=== PATIENT | female | born 1975 | race Caucasian/White ===

== ENCOUNTER 2017-05-26 12:33 | Emergency (ER) | payer OTHER ==
[2017-05-26 12:45] VITALS: BMI 31.9
[2017-05-26 12:47] VITALS: BP 111/84; PULSE 78; TEMP 97.9; O2SAT 95
--- NOTE | 2017-05-26 13:04 | C.PDOC ---
History Of Present Illness SORE THROAT X 4 DAYS. +EYE DC, +DIARRHEA. NO FEVER. TAKING "AMPICILLIN" W NO RELIEF. EXAM NONTOXIC HEENT +WATERY DC B/L EYES, NO REDNESS. NO EYE SWELLING. +LARYNGITIS. NO EXUDATE , SWELL ABD NEG REMAINDER NEG Time Seen by Provider: 05/26/17 12:52 Chief Complaint (Nursing): ENT Problem History Per: Patient History/Exam Limitations: no limitations Onset/Duration Of Symptoms: Days (4) Current Symptoms Are (Timing): Still Present Recent travel outside of the [place]: No Past Medical History Reviewed: Historical Data, Nursing Documentation, Vital Signs Vital Signs: Last Vital Signs Temp 97.9 F 05/26/17 12:46 Pulse 78 05/26/17 12:46 Resp 18 05/26/17 12:46 BP 111/84 05/26/17 12:46 Pulse Ox 95 05/26/17 13:04 - [facility] Procedures LAPAROSCOPIC CHOLECYSTECTOMY (01/17/13) OTHER LAPAROSCOPIC UMBILICAL HERNIORRHAPHY (01/17/13) Family History: States: No Known Family Hx Review Of Systems Except As Marked, All Systems Reviewed And Found Negative. Constitutional: Negative for: Fever, Chills Eyes: Positive for: Other ((+) eye discharge) ENT: Positive for: Throat Pain (sore throat) Gastrointestinal: Positive for: Diarrhea. Negative for: Vomiting Musculoskeletal: Negative for: Neck Pain Physical Exam - Physical Exam Appears: Non-toxic, No Acute Distress Skin: Warm, Dry Head: Atraumatic, Normacephalic Eye(s): bilateral: PERRL, EOMI, Other (bilateral watery discharge, no redness, no swelling) Ear(s): Bilateral: Normal Throat: No Exudate, Other ((+) laryngitis (-) swelling) Respiratory: Normal Breath Sounds Gastrointestinal/Abdominal: Normal Exam, Soft, No Tenderness, No Guarding, No Rebound Extremity: Normal ROM, No Swelling Neurological/Psych: Oriented x3, Normal Speech ED Course And Treatment O2 Sat by Pulse Oximetry: 95 (RA) Pulse Ox Interpretation: Normal Disposition Counseled Patient/Family Regarding: Diagnosis, Need For Followup, Rx Given - Disposition Referrals: YOUR,PMD [Other] Disposition: HOME/ ROUTINE Disposition Time: 13:01 Condition: GOOD Prescriptions: Atropine/Diphenoxylate [Lonox 0.025 MG-2.5 MG] 1 tab PO BID PRN #12 tab PRN Reason: Diarrhea Dexamethasone [Decadron] 12 mg PO ONCE #3 tab Ibuprofen [Motrin] 600 mg PO Q6 #30 tab Polymyxin/Trimethoprim Sulfate [Polytrim Ophth Soln] 1 drop OD Q3H #1 bottle Instructions: Laryngitis (ED), Acute Diarrhea (ED), Conjunctivitis (ED) Forms: [employer] (Martiniquais) Print Language: SAUDI ARABIAN - Clinical Impression Clinical Impression: Laryngitis, Conjunctivitis, Diarrhea - Scribe Statement The provider has reviewed the documentation as recorded by the Talat Garcia Provider Attestation: All medical record entries made by the Talat were at my direction and personally dictated by me. I have reviewed the chart and agree that the record accurately reflects my personal performance of the history, physical exam, medical decision making, and the department course for this patient. I have also personally directed, reviewed, and agree with the discharge instructions and disposition.
[2017-05-26 13:24] VITALS: RESP 20
== END 2017-05-26 13:24 | disposition home or self-care (01) ==
LOC: C.ER 12:33
DX: H10.9 Unspecified conjunctivitis (principal); J04.0 Acute laryngitis; R19.7 Diarrhea, unspecified

== ENCOUNTER 2018-09-07 12:27 | Inpatient (IN) | payer OTHER ==
[2018-09-07 12:37] VITALS: BMI 30.6
--- NOTE | 2018-09-07 13:33 | C.PDOC ---
History Of Present Illness Patient is a 43 year old female with pmhx of asthma, RA, SLE, sarcoidosis and anemia who presents to the ED today at the request of her PMD for evaluation of worsening SOB, cough and concerning recent findings on CXR. Patient reports cough and worsening SOB over past month for which she underwent nasal endoscopy, CXR and recently EGD today. Patient reports PMD was concerned regarding CXR findings: marked interval worsening. Enlarged patchy densities B/L LL jimenez, new patchy densities in B/L upper/mid lung jimenez. Patient reports asthma is usually well controlled with Ventolin pump and nebulizer treatments at home, however not for past month. Patient denies recent illness, fevers, chest pain, nausea, diarrhea, home O2 use. <Goldie Danielle - Last Filed: 09/07/18 16:10> <Beena Martinez - Last Filed: 09/07/18 15:25> History Per: Patient History/Exam Limitations: no limitations Current Symptoms Are (Timing): Better Initiating Event: denies: Upper Respiratory Illness Current Respiratory Medications: See Home Med List Associated Symptoms: Productive Cough (white sputum). denies: Fever, Chills, Chest Pain <Goldie Danielle - Last Filed: 09/07/18 16:10> Time Seen by Provider: 09/07/18 12:41 Chief Complaint (Nursing): Shortness Of Breath Past Medical History Vital Signs: Last Vital Signs Temp 97.7 F 09/07/18 12:48 Pulse 78 09/07/18 14:47 Resp 28 H 09/07/18 14:47 BP 111/65 09/07/18 14:47 Pulse Ox 89 L 09/07/18 15:15 - [facility] Procedures LAPAROSCOPIC CHOLECYSTECTOMY (01/17/13) OTHER LAPAROSCOPIC UMBILICAL HERNIORRHAPHY (01/17/13) <Beena Martinez - Last Filed: 09/07/18 15:25> Reviewed: Historical Data, Nursing Documentation, Vital Signs Vital Signs: Last Vital Signs Temp 97.7 F 09/07/18 12:48 Pulse 92 H 09/07/18 12:48 Resp 28 H 09/07/18 12:48 BP 108/67 09/07/18 12:48 Pulse Ox 89 L 09/07/18 12:48 - Medical History PMH: Anemia, Asthma, Rheumatoid Arthritis Surgical History: Cholecystectomy - [facility] Procedures LAPAROSCOPIC CHOLECYSTECTOMY (01/17/13) OTHER LAPAROSCOPIC UMBILICAL HERNIORRHAPHY (01/17/13) Family History: States: Unknown Family Hx - Social History Hx Tobacco Use: No Hx Alcohol Use: No Hx Substance Use: No - Immunization History Hx Tetanus Toxoid Vaccination: No Hx Influenza Vaccination: No Hx Pneumococcal Vaccination: No <Goldie Danielle - Last Filed: 09/07/18 16:10> Review Of Systems Constitutional: Positive for: Weight loss (10 lb). Negative for: Fever, Chills ENT: Negative for: Nose Congestion Cardiovascular: Negative for: Chest Pain Respiratory: Positive for: Cough, Shortness of Breath, Sputum (white) Gastrointestinal: Positive for: Vomiting (post-tussive). Negative for: Abdominal Pain <Goldie Danielle - Last Filed: 09/07/18 16:10> Physical Exam - Physical Exam Appears: Non-toxic, No Acute Distress Skin: Normal Color, Warm, Dry, No Cyanotic Head: Atraumatic, Normacephalic Eye(s): bilateral: Normal Inspection, EOMI Oral Mucosa: Moist Neck: Normal Cardiovascular: Rhythm Regular, No Murmur Respiratory: No Accessory Muscle Use, Rales, No Rhonchi, No Wheezing Gastrointestinal/Abdominal: Normal Exam, Bowel Sounds, Soft, No Tenderness Extremity: No Pedal Edema, No Calf Tenderness Extremity: Bilateral: Normal Color And Temperature Neurological/Psych: Oriented x3 <Goldie Danielle - Last Filed: 09/07/18 16:10> ED Course And Treatment - Laboratory Results Result Diagrams: 09/07/18 14:09 09/07/18 14:09 Lab Results: Puncture Site Rradial 09/07/18 14:00 pCO2 29 mm/Hg (35-45) L 09/07/18 14:00 pO2 55 mm/Hg (80-100) L 09/07/18 14:00 HCO3 24.6 mmol/L (21-28) 09/07/18 14:00 ABG pH 7.49 (7.35-7.45) H 09/07/18 14:00 ABG Total CO2 23.0 mmol/L (22-28) 09/07/18 14:00 ABG O2 Saturation 93.3 % (95-98) L 09/07/18 14:00 ABG Base Excess -0.2 mmol/L (-2.0-3.0) 09/07/18 14:00 Nacho Test Pos 09/07/18 14:00 ABG Potassium 3.0 mmol/L (3.6-5.2) L 09/07/18 14:00 A-a O2 Difference 58.0 mm/Hg 09/07/18 14:00 Respiratory Index 1.1 09/07/18 14:00 Sodium 140.0 mmol/l (132-148) 09/07/18 14:00 Chloride 110.0 mmol/L (98-107) H 09/07/18 14:00 Glucose 85 mg/dl (65-105) 09/07/18 14:00 Lactate 0.7 mmol/L (0.7-2.1) 09/07/18 14:00 FiO2 21.0 % 09/07/18 14:00 Total Bilirubin 0.2 mg/dL (0.2-1.3) 09/07/18 14:09 AST 78 U/L (14-36) H 09/07/18 14:09 ALT 14 U/L (9-52) 09/07/18 14:09 Alkaline Phosphatase 65 U/L (38-126) 09/07/18 14:09 Total Protein 8.2 g/dL (6.3-8.3) 09/07/18 14:09 Albumin 3.5 g/dL (3.5-5.0) D 09/07/18 14:09 Globulin 4.8 gm/dL (2.2-3.9) H 09/07/18 14:09 Albumin/Globulin Ratio 0.7 (1.0-2.1) L 09/07/18 14:09 Urine Color Yellow (YELLOW) 09/07/18 14:43 Urine Clarity Hazy (Clear) 09/07/18 14:43 Urine pH 6.0 (5.0-8.0) 09/07/18 14:43 Ur Specific [place] 1.016 (1.003-1.030) 09/07/18 14:43 Urine Protein Negative mg/dL (NEGATIVE) 09/07/18 14:43 Urine Glucose (UA) Normal mg/dL (Normal) 09/07/18 14:43 Urine Ketones Negative mg/dL (NEGATIVE) 09/07/18 14:43 Urine Blood 2+ (NEGATIVE) H 09/07/18 14:43 Urine Nitrate Negative (NEGATIVE) 09/07/18 14:43 Urine Bilirubin Negative (NEGATIVE) 09/07/18 14:43 Urine Urobilinogen 2.0 mg/dL (0.2-1.0) H 09/07/18 14:43 Ur Leukocyte Esterase Neg Isai/uL (Negative) 09/07/18 14:43 Urine WBC (Auto) 2 /hpf (0-5) 09/07/18 14:43 Urine RBC (Auto) 21 /hpf (0-3) H 09/07/18 14:43 Ur Squamous Epith Cells 1 /hpf (0-5) 09/07/18 14:43 Urine Bacteria Rare (<OCC) 09/07/18 14:43 <Beena Martinez - Last Filed: 09/07/18 15:25> - Laboratory Results Result Diagrams: 09/07/18 14:09 09/07/18 14:09 ECG: Viewed By Me ECG Rhythm: Sinus Rhythm, Nonspecific Changes O2 Sat by Pulse Oximetry: 89 Pulse Ox Interpretation: Abnormal Interpretation Of Abnormal: Unable to maintain spO2 >90% on room air - Radiology CXR: Viewed By Me, Read By Radiologist (Patchy B/L nodular infiltrates most prominent in the right upper and B/L lower lobes suspicious for PNA) <Goldie Danielle - Last Filed: 09/07/18 16:10> Supervising Attending Note - Supervising Attending Note Comment: RESIDENT - Attestation: I have personally seen and examined this patient.: Yes I have fully participated in the care of the patient.: Yes I have reviewed all pertinent clinical information, including history, physical exam and plan: Yes - Notes: Notes:: WORSENING SOB X SEV MONTHS. S/P OUTPT CXR, REPORT NOTING WORSENING FINDINGS COMPARED TO PRIOR. NO FEVER, WT LOSS. NO IMPROVE W MDI, NEB. NO HOME O2 USE. EXAM ABOVE. PER RN, PT MUCH IMPROVED W O2 NC. PS FEELS BETTER W O2 <Beena Martinez - Last Filed: 09/07/18 15:25> Medical Decision Making Medical Decision Makin43 year old female admitted for evaluation and treatment of worsening SOB/cough CXR CT Chest w/ IV contrast CBC/CMP ABG EKG O2 UA <Goldie Danielle - Last Filed: 09/07/18 16:10> Disposition <Beena Martinez - Last Filed: 09/07/18 15:25> Discussed With Dr.: Elvin Hidalgo Comment: Spoke with patient's day worker, Dr. Morrell who requests admission to Dr. Hidalgo Doctor Will See Patient In The: Hospital Counseled Patient/Family Regarding: Studies Performed, Diagnosis - Disposition Disposition Time: 16:04 - POA Present On Arrival: None <Goldie Danielle - Last Filed: 09/07/18 16:10> - Disposition Disposition: HOSPITALIZED Condition: FAIR Forms: [facility] (Greenlandic) - Clinical Impression Clinical Impression: Respiratory distress
[2018-09-07 14:07] LABS: ABG ALLEN TEST POS; ARTERIAL BLOOD GAS HCO3 24.6 mmol/L (21-28); ARTERIAL BLOOD GAS O2 SAT 93.3 % (95-98); ARTERIAL BLOOD GAS PCO2 29 mm/Hg (35-45); ARTERIAL BLOOD GAS PH 7.49 (7.35-7.45); ARTERIAL BLOOD GAS PO2 55 mm/Hg (80-100)
[2018-09-07 14:13] LABS: BASO % 0.5 % (0.0-2.0); HEMOGLOBIN 10.7 g/dL (11.0-16.0); LYMPH # 1.3 K/uL (1.0-4.3); MEAN CORPUSCULAR HEMOGLOBIN 28.3 pg (27.0-31.0); MEAN CORPUSCULAR HGB CONC 33.6 g/dL (33.0-37.0); MEAN PLATELET VOLUME 6.8 fL (7.2-11.7); MONO # 0.2 K/uL (0.0-0.8); MONO % 3.2 % (0.0-10.0); NEUT # 4.5 K/uL (1.8-7.0); NEUT % 74.3 % (50.0-75.0); RBC 3.8 Mil/uL (3.80-5.20); RED CELL DISTRIBUTION WIDTH 15.3 % (11.5-14.5); WHITE BLOOD COUNT 6.1 K/uL (4.8-10.8)
[2018-09-07 14:14] LABS: MEAN CELL VOLUME 84.1 fL (81.0-99.0)
[2018-09-07 14:24] LABS: ALB/GLOB RATIO 0.7 (1.0-2.1); ALBUMIN 3.5 g/dL (3.5-5.0); ALT/SGPT 14 U/L (9-52); AST/SGOT 78 U/L (14-36); BLOOD UREA NITROGEN 13 mg/dL (7-17); GFR NON-AFRICAN AMERICAN > 60
[2018-09-07] MEDS ORDERED: Iodixanol 320 MG/ML 100 ML BOTTLE IV ONE (14:47)
[2018-09-07 14:49] LABS: SQUAMOUS EPITHIAL 1 /hpf (0-5); URINE BACTERIA RARE (<OCC); URINE BILIRUBIN NEGATIVE (NEGATIVE); URINE BLOOD 2+ (NEGATIVE); URINE CLARITY Hazy (Clear); URINE COLOR Yellow (YELLOW); URINE GLUCOSE (UA) NORMAL (Normal); URINE LEUKOCYTE ESTERASE NEG Leu/uL (Negative); URINE PROTEIN NEGATIVE (NEGATIVE)
--- NOTE | 2018-09-07 14:59 | RAD ---
HISTORY: SOB COMPARISON: None available TECHNIQUE: Chest PA and lateral, 2 views FINDINGS: LUNGS: Patchy bilateral nodular infiltrates most prominent in the right upper and bilateral lower lobes suspicious for pneumonia. No significant pleural effusion or pneumothorax. CARDIOVASCULAR: Heart size appears within normal limits. OSSEOUS STRUCTURES: No acute osseous abnormality identified. VISUALIZED UPPER ABDOMEN: Unremarkable. OTHER FINDINGS: None. IMPRESSION: Patchy bilateral nodular infiltrates most prominent in the right upper and bilateral lower lobes suspicious for pneumonia. Correlate clinically and follow-up upon completion of treatment of acute symptoms to assess for complete resolution.
--- NOTE | 2018-09-07 16:20 | CT ---
Date of service: 09/07/2018 PROCEDURE: CT Chest with contrast HISTORY: worsening SOB COMPARISON: None available. TECHNIQUE: Contiguous axial images were obtained through the chest with intravenous contrast enhancement. Sagittal and coronal reconstructions were performed. IV contrast: 100 mL Visipaque 320 Radiation dose: Total exam DLP = 410.67 mGy-cm. This CT exam was performed using one or more of the following dose reduction techniques: Automated exposure control, adjustment of the mA and/or kV according to patient size, and/or use of iterative reconstruction technique. FINDINGS: LUNGS: Multifocal bilateral infiltrates are noted with an atypical appearance of concentric rings of opacity in some regions. There is ground-glass opacity in both lower lobes. There is no discrete pulmonary mass. There is no agnieszka consolidation. Findings may reflect an atypical pneumonia or opportunistic infection. One possible etiology to consider would be paracoccidiomycosis, but these findings are in no way pathognomonic. MEDIASTINUM: There is mediastinal and bilateral hilar lymphadenopathy. Nonspecific. Consider neoplastic or inflammatory/infectious etiology. Normal sized heart. Main pulmonary artery unremarkable. No vascular congestion. No evidence of thoracic aortic aneurysm. No atherosclerotic calcification of the thoracic aorta. Small hiatal hernia noted. PLEURA: No pleural fluid. No pneumothorax. BONES: No fracture. No destructive lesion. UPPER ABDOMEN: Grossly unremarkable. OTHER FINDINGS: None. IMPRESSION: Probable atypical pneumonia with both ground-glass opacity as well as concentric rings of opacity. Possible opportunistic infection. Consider paracoccidiomycosis.
[2018-09-07] MEDS ORDERED: Azithromycin 500 MG in Sodium Chloride 0.9% 250 ML IV STA (17:06)
[2018-09-07] MEDS ORDERED: cefTRIAXone IV 1 gm in Dextros 50 ML IV STA (17:06)
[2018-09-07] MEDS ORDERED: Vancomycin 1 GM 1 GM/250 ML BAG IV STA (17:06)
[2018-09-07 17:34] LABS: VENOUS BLOOD GAS BASE EXCESS -5.7 mmol/L (0.0-2.0); VENOUS BLOOD GAS PCO2 31 mmHg (40-60); VENOUS BLOOD GAS PO2 47 mm/Hg (30-55); VENOUS BLOOD PH 7.38 (7.32-7.43)
[2018-09-07] MEDS ORDERED: Azithromycin 500 MG in Sodium Chloride 0.9% 250 ML IV ONE (19:00)
[2018-09-07] MEDS ORDERED: Vancomycin 1 gm/NS 200 ml 1 GM/200 ML BAG IVPB ONE (19:00)
[2018-09-07] MEDS: MethylPREDNISolone 40 mg Vial IVP SCH (21:05)
[2018-09-07] MEDS: guaiFENesin 600 mg ER Tab PO SCH (21:05)
[2018-09-08] MEDS: Albuterol-Ipratrop 3 mg / 0.5 (3 ml) UD INH SCH (01:05)
[2018-09-08] MEDS: MethylPREDNISolone 40 mg Vial IVP SCH ×2 (08:27→20:48)
--- NOTE | 2018-09-08 09:48 | CP.PCM.CON ---
<Loida Oconnor - Last Filed: 09/08/18 10:29> History of Present Illness - History of Present Illness History of Present Illness: Pulm Consult note for Dr. Morrell 43 year old female with PMHx of asthma, RA, SLE, sarcoidosis, and anemia who presented to the emergency room yesterday morning with worsening shortness of breath and cough for 1 month. Patient states her baseline is mildly short of breath with slight cough due to asthma and sarcoidosis but 1 month ago her symptoms had gotten much worse. Patient states she felt like she needed oxygen. She went to Dr. Morrell last week who told her to get a CXR. The CXR report was sent to Dr. Morrell and her primary care doctor, Dr. Byrnes. Dr. Byrnes told the patient to come to the ER after viewing the report. Last November Dr. Kiya Smith completed a lung biopsy for the patient which showed sarcoidosis. Since then she has been on steroid therapy with a baseline treatment coupled with increased dosage during exacerbations. This has been managed by Dr. Morrell for the past 6 months. In addition to the steroid therapies, patient follows Dr. Gómez for SLE which she takes hydroxychloroquine 250 BID and RA which she takes humira 1 injection every 15 days. Patient's asthma is controlled at home with Ventolin and nebulizers which she takes twice a day. However, over the past month these therapies have not helped with her SOB and cough Patient is from the [place]. She states she has been in [place] since 2010 and has not traveled anywhere particularly to [place] or [place]. Patient denies aspiration or difficulty swallowing, denies hemoptysis, and denies any recent hospitalizations or health care facility exposures. Patient denies any exposure to environmental respiratory irritants, any pets at home, or carpets. Patient recently had an EKG as well as Upper GI endoscopy done to rule out cardiovascular causes SOB as well as to examine symptoms of GERD. Patient recently began taking iron for microcytic anemia. She states she is currently on her period which began one day ago. She states her flow is normal. PMHx: asthma, sarcoidosis, SLE, RA, anemia Surgical history: cholecystectomy, section x2 Allergies: denies Social: denies cigarette use, alcohol use, recreational drug use, patient states she has not worked for the past year Family history: diabetes Review of Systems - Constitutional Constitutional: Fatigue, Fever. absent: Weight Loss - EENT Nose/Mouth/Throat: absent: Nasal Congestion, Dysphagia, Neck Pain - Cardiovascular Cardiovascular: absent: Chest Pain, Edema, Leg Edema, Palpitations - Respiratory Respiratory: Cough, Dyspnea. absent: Hemoptysis, Wheezing - Gastrointestinal Gastrointestinal: Heartburn, Nausea. absent: Abdominal Pain, Coffee Ground Emesis, Diarrhea, Hematemesis, Hematochezia - Reproductive: Female Reproductive:Female: Currently Menstual, Normal Menses - Musculoskeletal Musculoskeletal: absent: Arthralgias, Myalgias Past Patient History - Past Social History Smoking Status: Never Smoked Alcohol: None Drugs: Denies - PULMONARY Hx Asthma: Yes - ENDOCRINE/METABOLIC Hx Endocrine Disorders: Yes Hx Systemic Lupus Erythematosus: Yes - HEMATOLOGICAL/ONCOLOGICAL Hx Anemia: Yes - MUSCULOSKELETAL/RHEUMATOLOGICAL Hx Rheumatoid Arthritis: Yes - PSYCHIATRIC Hx Substance Use: No - SURGICAL HISTORY Hx Cholecystectomy: Yes - ANESTHESIA Hx Anesthesia: Yes Hx Anesthesia Reactions: No Meds Allergies/Adverse Reactions: Allergies Allergy/AdvReac Type Severity Reaction Status Date / Time No Known Allergies Allergy Verified 05/26/17 12:44 - Medications Medications: Current Medications Albuterol/Ipratropium (Duoneb 3 Mg/0.5 Mg (3 Ml) Ud) 3 ml INH RQ6 [facility] Last Admin: 09/08/18 01:05 Dose: 3 ml Baclofen (Lioresal) 20 mg PO BID [facility] Last Admin: 09/07/18 21:24 Dose: 20 mg Folic Acid (Folic Acid) 1 mg PO DAILY [facility] Guaifenesin (Mucinex La) 600 mg PO BID [facility] Last Admin: 09/07/18 21:05 Dose: 600 mg Heparin Sodium (Porcine) (Heparin) 5,000 units SC Q12 [facility] Azithromycin 500 mg/ Sodium (Chloride) 250 mls @ 250 mls/hr IVPB DAILY [facility]; Protocol Ceftriaxone Sodium 1 gm/ (Sodium Chloride) 100 mls @ 100 mls/hr IVPB DAILY [facility]; Protocol Vancomycin HCl 1 gm/ Sodium (Chloride) 250 mls @ 166.7 mls/hr IVPB Q12H [facility]; Protocol Last Admin: 09/08/18 08:25 Dose: 166.7 mls/hr Itraconazole (Sporanox) 100 mg PO DAILY@1600 [facility]; Protocol Methylprednisolone (Solu-Medrol) 60 mg IVP Q12H [facility] Last Admin: 09/08/18 08:27 Dose: 60 mg Pneumococcal Polyvalent Vaccine (Pneumovax 23 Vaccine) 0.5 ml IM .ONCE ONE Stop: 09/09/18 10:01 Physical Exam - Constitutional Appears: Well, Non-toxic - Head Exam Head Exam: ATRAUMATIC, NORMOCEPHALIC - Eye Exam Eye Exam: EOMI, Normal appearance - ENT Exam ENT Exam: Mucous Membranes Moist, Normal Exam - Neck Exam Neck exam: Positive for: Normal Inspection. Negative for: Lymphadenopathy, Tenderness - Respiratory Exam Respiratory Exam: Clear to Auscultation Bilateral, NORMAL BREATHING PATTERN. absent: Accessory Muscle Use, Rales, Rhonchi, Wheezes - Cardiovascular Exam Cardiovascular Exam: REGULAR RHYTHM, RRR, +S1, +S2. absent: JVD - GI/Abdominal Exam GI & Abdominal Exam: Normal Bowel Sounds, Soft - Extremities Exam Extremities exam: Positive for: normal capillary refill. Negative for: pedal edema, tenderness Results - Vital Signs Recent Vital Signs: Last Vital Signs Temp 97.4 F L 09/08/18 07:00 Pulse 91 H 09/08/18 07:00 Resp 20 09/08/18 07:00 BP 120/58 L 09/08/18 07:00 Pulse Ox 99 09/08/18 08:00 - Labs Result Diagrams: 09/07/18 14:09 09/07/18 14:09 Labs: Laboratory Results - last 24 hr 09/07/18 09/07/18 09/07/18 14:00 14:09 14:09 WBC 6.1 RBC 3.80 Hgb 10.7 L Hct 31.9 L MCV 84.1 D MCH 28.3 MCHC 33.6 RDW 15.3 H Plt Count 404 H D MPV 6.8 L Neut % (Auto) 74.3 Lymph % (Auto) 22.0 [place] % (Auto) 3.2 Eos % (Auto) 0.0 Baso % (Auto) 0.5 Neut # (Auto) 4.5 Lymph # (Auto) 1.3 [place] # (Auto) 0.2 Eos # (Auto) 0.0 Baso # (Auto) 0.0 Puncture Site Rradial pCO2 29 L pO2 55 L HCO3 24.6 ABG pH 7.49 H ABG Total CO2 23.0 ABG O2 Saturation 93.3 L ABG Base Excess -0.2 Nacho Test Pos ABG Potassium 3.0 L VBG pH VBG pCO2 VBG HCO3 VBG Total CO2 VBG O2 Sat (Calc) VBG Base Excess VBG Potassium A-a O2 Difference 58.0 Respiratory Index 1.1 Sodium 140.0 138 Chloride 110.0 H 106 Glucose 85 Lactate 0.7 FiO2 21.0 Crit Value Called To Crit Value Called By Crit Value Read Back Blood Gas Notified Time Potassium 3.8 Carbon Dioxide 27 Anion Gap 8 L BUN 13 Creatinine 1.0 Est GFR ( Amer) > 60 Est GFR (Non-Af Amer) > 60 Random Glucose 94 Calcium 9.0 Phosphorus 3.2 Magnesium 2.2 Total Bilirubin 0.2 AST 78 H ALT 14 Alkaline Phosphatase 65 Total Protein 8.2 Albumin 3.5 D Globulin 4.8 H Albumin/Globulin Ratio 0.7 L Arterial Blood Potassium 3.0 L Venous Blood Potassium Urine Color Urine Clarity Urine pH Ur Specific Spray Urine Protein Urine Glucose (UA) Urine Ketones Urine Blood Urine Nitrate Urine Bilirubin Urine Urobilinogen Ur Leukocyte Esterase Urine WBC (Auto) Urine RBC (Auto) Ur Squamous Epith Cells Urine Bacteria 09/07/18 09/07/18 14:43 17:30 WBC RBC Hgb Hct MCV MCH MCHC RDW Plt Count MPV Neut % (Auto) Lymph % (Auto) [place] % (Auto) Eos % (Auto) Baso % (Auto) Neut # (Auto) Lymph # (Auto) [place] # (Auto) Eos # (Auto) Baso # (Auto) Puncture Site pCO2 pO2 47 HCO3 ABG pH ABG Total CO2 ABG O2 Saturation ABG Base Excess Nacho Test ABG Potassium VBG pH 7.38 VBG pCO2 31 L VBG HCO3 20.1 VBG Total CO2 19.3 L VBG O2 Sat (Calc) 86.4 H VBG Base Excess -5.7 L VBG Potassium 2.5 L* A-a O2 Difference Respiratory Index Sodium 141.0 Chloride 112.0 H Glucose 60 L Lactate 1.2 FiO2 21.0 Crit Value Called To Dr rush Crit Value Called By [facility] Crit Value Read Back Y Blood Gas Notified Time 1734 Potassium Carbon Dioxide Anion Gap BUN Creatinine Est GFR ( Amer) Est GFR (Non-Af Amer) Random Glucose Calcium Phosphorus Magnesium Total Bilirubin AST ALT Alkaline Phosphatase Total Protein Albumin Globulin Albumin/Globulin Ratio Arterial Blood Potassium Venous Blood Potassium 2.5 L* Urine Color Yellow Urine Clarity Hazy Urine pH 6.0 Ur Specific Spray 1.016 Urine Protein Negative Urine Glucose (UA) Normal Urine Ketones Negative Urine Blood 2+ H Urine Nitrate Negative Urine Bilirubin Negative Urine Urobilinogen 2.0 H Ur Leukocyte Esterase Neg Urine WBC (Auto) 2 Urine RBC (Auto) 21 H Ur Squamous Epith Cells 1 Urine Bacteria Rare - Imaging and Cardiology CT scan - chest Status: Image reviewed by me Additional comment: Impression: probable atypical pneumonia with both ground-glass opacity as well as concentric rings of opacity. Possible opportunistic infection. Consider p aracoccidiomycosis. Assessment & Plan - Assessment and Plan (Free Text) Assessment: 43 year old female with PMHx of sarcoidosis, SLE, RA, asthma on chronic steroid and immunosuppressant therapy presenting with 1 month history of shortness of breath and increased cough Plan: Shortness of breath 2/2 lung infection bacterial vs fungal CT showed multifocal b/l atypical ground glass opacities consistent with atypical pneumonia or opportunist infections, consider paracoccidomycosis CXR shows patchy bilateral nodular infiltrates most prominent in the right upper and bilateral lower lobes suspicious for PNA Continue empiric IV antibiotics Started on empiric fungal coverage of itraconazole for potential paracoccidomycosis RT to induce sputum collection for culture and cytology ID consult recommended Procalcitonin ordered PGY-1 Loida Wolf d/w Dr. Morrell <Sergo Morrell S - Last Filed: 09/10/18 15:38> Meds - Medications Medications: Current Medications Albuterol/Ipratropium (Duoneb 3 Mg/0.5 Mg (3 Ml) Ud) 3 ml INH RQ6 [facility] Last Admin: 09/10/18 13:51 Dose: 3 ml Baclofen (Lioresal) 20 mg PO BID [facility] Last Admin: 09/10/18 09:23 Dose: 20 mg Folic Acid (Folic Acid) 1 mg PO DAILY [facility] Last Admin: 09/10/18 09:24 Dose: 1 mg Guaifenesin (Mucinex La) 600 mg PO BID [facility] Last Admin: 09/10/18 09:23 Dose: 600 mg Heparin Sodium (Porcine) (Heparin) 5,000 units SC Q12 [facility] Last Admin: 09/10/18 09:24 Dose: 5,000 units Ceftriaxone Sodium 1 gm/ (Sodium Chloride) 100 mls @ 100 mls/hr IVPB DAILY [facility]; Protocol Last Admin: 09/10/18 10:01 Dose: 100 mls/hr Vancomycin HCl 1 gm/ Sodium (Chloride) 250 mls @ 166.7 mls/hr IVPB Q12H [facility]; Protocol Last Admin: 09/10/18 08:08 Dose: 166.7 mls/hr Azithromycin 500 mg/ Sodium (Chloride) 250 mls @ 250 mls/hr IVPB DAILY@1200 [facility]; Protocol Last Admin: 09/10/18 11:00 Dose: 250 mls/hr Fluconazole (Diflucan Iv 200 Mg/100 Ml Ns) 100 mls @ 100 mls/hr IVPB 1430 [facility]; Protocol Last Admin: 09/10/18 13:44 Dose: 100 mls/hr Methylprednisolone (Solu-Medrol) 60 mg IVP Q12H [facility] Last Admin: 09/10/18 09:24 Dose: 60 mg Pneumococcal Polyvalent Vaccine (Pneumovax 23 Vaccine) 0.5 ml IM .ONCE ONE Stop: 09/11/18 10:01 Results - Vital Signs Recent Vital Signs: Last Vital Signs Temp 97.8 F 09/10/18 07:15 Pulse 71 09/10/18 07:15 Resp 20 09/10/18 07:15 BP 118/74 09/10/18 07:15 Pulse Ox 98 09/10/18 07:15 - Labs Result Diagrams: 09/10/18 07:10 09/10/18 07:10 Labs: Laboratory Results - last 24 hr 09/09/18 09/10/18 09/10/18 06:44 07:10 07:10 WBC 9.7 RBC 3.61 L Hgb 10.8 L Hct 31.2 L MCV 86.3 MCH 29.8 MCHC 34.6 RDW 15.8 H Plt Count 443 H MPV 7.1 L Neut % (Auto) 89.3 H Lymph % (Auto) 8.8 L [place] % (Auto) 1.8 Eos % (Auto) 0.0 Baso % (Auto) 0.1 Neut # (Auto) 8.7 H Lymph # (Auto) 0.9 L [place] # (Auto) 0.2 Eos # (Auto) 0.0 Baso # (Auto) 0.0 Neutrophils % (Manual) 88 H Lymphocytes % (Manual) 11 L Monocytes % (Manual) 1 Platelet Estimate Slightly increased H Hypochromasia (manual) Slight Poikilocytosis (manual Slight Anisocytosis (manual) Slight Ovalocytes Slight Yadira Cells Slight Sodium 135 Potassium 4.8 Chloride 103 Carbon Dioxide 28 Anion Gap 9 L BUN 26 H Creatinine 0.8 Est GFR ( Amer) > 60 Est GFR (Non-Af Amer) > 60 Random Glucose 157 H Calcium 9.3 Cycl Citrul Peptide IgG >250 H SS-A Antibody <1.0 SS-B Ab Interp Negative SS-B Antibody <1.0 [employer]NESS INSTRUCTOR Antibody <1.0 [employer] AND WE[employer]NESS INSTRUCTOR Antibody Interp Negative Double Strand DNA Ab 1 Attending/Attestation - Attestation I have personally seen and examined this patient.: Yes I have fully participated in the care of the patient.: Yes I have reviewed all pertinent clinical information: Yes Notes (Text): Patient seen and examined and case discussed with resident Assessment and plan as per resident note Possible bronchoscopy Continue antibiotics
[2018-09-08] MEDS ORDERED: Azithromycin 500 MG in Sodium Chloride 0.9% 250 ML IVPB SCH (10:00)
[2018-09-08] MEDS: guaiFENesin 600 mg ER Tab PO SCH ×2 (10:31→17:21)
[2018-09-08 11:17] LABS: BASO % 0.2 % (0.0-2.0); HEMOGLOBIN 10.7 g/dL (11.0-16.0); LYMPH # 0.7 K/uL (1.0-4.3); LYMPH % 14.6 % (20.0-40.0); MEAN CORPUSCULAR HEMOGLOBIN 29.7 pg (27.0-31.0); MEAN CORPUSCULAR HGB CONC 34.3 g/dL (33.0-37.0); MEAN PLATELET VOLUME 6.9 fL (7.2-11.7); MONO # 0.1 K/uL (0.0-0.8); MONO % 2.9 % (0.0-10.0); NEUT # 4.2 K/uL (1.8-7.0); NEUT % 82.3 % (50.0-75.0); RBC 3.6 Mil/uL (3.80-5.20); RED CELL DISTRIBUTION WIDTH 16.1 % (11.5-14.5); WHITE BLOOD COUNT 5.1 K/uL (4.8-10.8)
[2018-09-08 11:26] LABS: MEAN CELL VOLUME 86.8 fL (81.0-99.0)
[2018-09-08 11:30] LABS: ALB/GLOB RATIO 0.7 (1.0-2.1); ALBUMIN 3.5 g/dL (3.5-5.0); ALT/SGPT 7 U/L (9-52); AST/SGOT 72 U/L (14-36); BLOOD UREA NITROGEN 10 mg/dL (7-17); CALCIUM 8.9 mg/dl (8.6-10.4); GFR NON-AFRICAN AMERICAN > 60
[2018-09-08] MEDS: Azithromycin 500 MG in Sodium Chloride 0.9% 250 ML IVPB SCH (11:43)
--- NOTE | 2018-09-08 13:29 | CP.PCM.CON ---
<Mendez Trivedi - Last Filed: 09/08/18 17:09> History of Present Illness - History of Present Illness History of Present Illness: 43 year old female with PMHx of asthma, RA, SLE, sarcoidosis, Rheumatoid Arthritis, and anemia who presented to the emergency room yesterday morning with worsening shortness of breath and cough for 1 month. Patient states her baseline is mildly short of breath with slight cough due to asthma and sarcoidosis but 1 month ago her symptoms had gotten much worse. Patient states she felt like she needed oxygen. She went to Dr. Morrell last week who told her to get a CXR. The CXR report was sent to Dr. Morrell and her primary care doctor, Dr. Byrnes. Dr. Byrnes told the patient to come to the ER after viewing the report. Cardiology consulted on this patient for SOB. Patient stated she recently got an ECHO by Dr. Link Roldan which she was told was normal. She was scheduled to get a Stress Test. POSITIVES: SOB (improved), Cough, NEGATIVES: Fevers, chills, chest pain, abdominal pain, nausea, vomiting, changes in bowel habits, Urinary symptoms. PMHx: asthma, sarcoidosis, SLE, RA, anemia, Rheumatoid Arthritis Surgical history: cholecystectomy, section x2 Allergies: denies Social: denies cigarette use, alcohol use, recreational drug use, patient states she has not worked for the past year Family history: diabetes/HTN Review of Systems - Review of Systems All systems: reviewed and no additional remarkable complaints except (As per HPI) Review of Systems: As per HPI Past Patient History - Past Social History Smoking Status: Never Smoked Alcohol: None Drugs: Denies - PULMONARY Hx Asthma: Yes - ENDOCRINE/METABOLIC Hx Endocrine Disorders: Yes Hx Systemic Lupus Erythematosus: Yes - HEMATOLOGICAL/ONCOLOGICAL Hx Anemia: Yes - MUSCULOSKELETAL/RHEUMATOLOGICAL Hx Rheumatoid Arthritis: Yes - PSYCHIATRIC Hx Substance Use: No - SURGICAL HISTORY Hx Cholecystectomy: Yes - ANESTHESIA Hx Anesthesia: Yes Hx Anesthesia Reactions: No Meds Allergies/Adverse Reactions: Allergies Allergy/AdvReac Type Severity Reaction Status Date / Time No Known Allergies Allergy Verified 05/26/17 12:44 - Medications Medications: Current Medications Albuterol/Ipratropium (Duoneb 3 Mg/0.5 Mg (3 Ml) Ud) 3 ml INH RQ6 [facility] Last Admin: 09/08/18 01:05 Dose: 3 ml Baclofen (Lioresal) 20 mg PO BID [facility] Last Admin: 09/08/18 10:32 Dose: 20 mg Folic Acid (Folic Acid) 1 mg PO DAILY [facility] Last Admin: 09/08/18 10:31 Dose: 1 mg Guaifenesin (Mucinex La) 600 mg PO BID [facility] Last Admin: 09/08/18 10:31 Dose: 600 mg Heparin Sodium (Porcine) (Heparin) 5,000 units SC Q12 [facility] Last Admin: 09/08/18 10:31 Dose: 5,000 units Ceftriaxone Sodium 1 gm/ (Sodium Chloride) 100 mls @ 100 mls/hr IVPB DAILY [facility]; Protocol Last Admin: 09/08/18 10:32 Dose: 100 mls/hr Vancomycin HCl 1 gm/ Sodium (Chloride) 250 mls @ 166.7 mls/hr IVPB Q12H [facility]; Protocol Last Admin: 09/08/18 08:25 Dose: 166.7 mls/hr Azithromycin 500 mg/ Sodium (Chloride) 250 mls @ 250 mls/hr IVPB DAILY@1200 [facility]; Protocol Last Admin: 09/08/18 11:43 Dose: 250 mls/hr Itraconazole (Sporanox) 100 mg PO DAILY@1600 [facility]; Protocol Methylprednisolone (Solu-Medrol) 60 mg IVP Q12H [facility] Last Admin: 09/08/18 08:27 Dose: 60 mg Pneumococcal Polyvalent Vaccine (Pneumovax 23 Vaccine) 0.5 ml IM .ONCE ONE Stop: 09/09/18 10:01 Physical Exam - Constitutional Appears: Well, Non-toxic, No Acute Distress - Head Exam Head Exam: ATRAUMATIC, NORMAL INSPECTION, NORMOCEPHALIC - Eye Exam Eye Exam: EOMI, Normal appearance - ENT Exam ENT Exam: Mucous Membranes Moist - Respiratory Exam Respiratory Exam: Rales (Mild, Left Sided (Improves with cough)). absent: Clear to Auscultation Bilateral - Cardiovascular Exam Cardiovascular Exam: +S1, +S2 Additional comments: +S3 Heart Sound - GI/Abdominal Exam GI & Abdominal Exam: Soft. absent: Tenderness - Extremities Exam Extremities exam: Negative for: pedal edema - Neurological Exam Neurological exam: Alert, Oriented x3 - Psychiatric Exam Psychiatric exam: Normal Affect, Normal Mood - Skin Skin Exam: Dry, Intact, Normal Color, Warm Results - Vital Signs Recent Vital Signs: Last Vital Signs Temp 97.4 F L 09/08/18 07:00 Pulse 91 H 09/08/18 07:00 Resp 20 09/08/18 07:00 BP 120/58 L 09/08/18 07:00 Pulse Ox 99 09/08/18 08:00 - Labs Result Diagrams: 09/08/18 11:03 09/08/18 11:03 Labs: Laboratory Results - last 24 hr 09/07/18 09/07/18 09/07/18 14:00 14:09 14:09 WBC 6.1 RBC 3.80 Hgb 10.7 L Hct 31.9 L MCV 84.1 D MCH 28.3 MCHC 33.6 RDW 15.3 H Plt Count 404 H D MPV 6.8 L Neut % (Auto) 74.3 Lymph % (Auto) 22.0 Winn % (Auto) 3.2 Eos % (Auto) 0.0 Baso % (Auto) 0.5 Neut # (Auto) 4.5 Lymph # (Auto) 1.3 Winn # (Auto) 0.2 Eos # (Auto) 0.0 Baso # (Auto) 0.0 Puncture Site Rradial pCO2 29 L pO2 55 L HCO3 24.6 ABG pH 7.49 H ABG Total CO2 23.0 ABG O2 Saturation 93.3 L ABG Base Excess -0.2 Nacho Test Pos ABG Potassium 3.0 L VBG pH VBG pCO2 VBG HCO3 VBG Total CO2 VBG O2 Sat (Calc) VBG Base Excess VBG Potassium A-a O2 Difference 58.0 Respiratory Index 1.1 Sodium 140.0 138 Chloride 110.0 H 106 Glucose 85 Lactate 0.7 FiO2 21.0 Crit Value Called To Crit Value Called By Crit Value Read Back Blood Gas Notified Time Potassium 3.8 Carbon Dioxide 27 Anion Gap 8 L BUN 13 Creatinine 1.0 Est GFR ( Amer) > 60 Est GFR (Non-Af Amer) > 60 Random Glucose 94 Calcium 9.0 Phosphorus 3.2 Magnesium 2.2 Total Bilirubin 0.2 AST 78 H ALT 14 Alkaline Phosphatase 65 Total Protein 8.2 Albumin 3.5 D Globulin 4.8 H Albumin/Globulin Ratio 0.7 L Procalcitonin Arterial Blood Potassium 3.0 L Venous Blood Potassium Urine Color Urine Clarity Urine pH Ur Specific Wilson Urine Protein Urine Glucose (UA) Urine Ketones Urine Blood Urine Nitrate Urine Bilirubin Urine Urobilinogen Ur Leukocyte Esterase Urine WBC (Auto) Urine RBC (Auto) Ur Squamous Epith Cells Urine Bacteria 09/07/18 09/07/18 09/08/18 14:43 17:30 11:03 WBC 5.1 RBC 3.60 L Hgb 10.7 L Hct 31.2 L MCV 86.8 D MCH 29.7 MCHC 34.3 RDW 16.1 H Plt Count 422 H MPV 6.9 L Neut % (Auto) 82.3 H Lymph % (Auto) 14.6 L Winn % (Auto) 2.9 Eos % (Auto) 0.0 Baso % (Auto) 0.2 Neut # (Auto) 4.2 Lymph # (Auto) 0.7 L Winn # (Auto) 0.1 Eos # (Auto) 0.0 Baso # (Auto) 0.0 Puncture Site pCO2 pO2 47 HCO3 ABG pH ABG Total CO2 ABG O2 Saturation ABG Base Excess Nacho Test ABG Potassium VBG pH 7.38 VBG pCO2 31 L VBG HCO3 20.1 VBG Total CO2 19.3 L VBG O2 Sat (Calc) 86.4 H VBG Base Excess -5.7 L VBG Potassium 2.5 L* A-a O2 Difference Respiratory Index Sodium 141.0 Chloride 112.0 H Glucose 60 L Lactate 1.2 FiO2 21.0 Crit Value Called To Dr rush Crit Value Called By [facility] Crit Value Read Back Y Blood Gas Notified Time 1734 Potassium Carbon Dioxide Anion Gap BUN Creatinine Est GFR ( Amer) Est GFR (Non-Af Amer) Random Glucose Calcium Phosphorus Magnesium Total Bilirubin AST ALT Alkaline Phosphatase Total Protein Albumin Globulin Albumin/Globulin Ratio Procalcitonin Arterial Blood Potassium Venous Blood Potassium 2.5 L* Urine Color Yellow Urine Clarity Hazy Urine pH 6.0 Ur Specific Wilson 1.016 Urine Protein Negative Urine Glucose (UA) Normal Urine Ketones Negative Urine Blood 2+ H Urine Nitrate Negative Urine Bilirubin Negative Urine Urobilinogen 2.0 H Ur Leukocyte Esterase Neg Urine WBC (Auto) 2 Urine RBC (Auto) 21 H Ur Squamous Epith Cells 1 Urine Bacteria Rare 09/08/18 09/08/18 11:03 11:03 WBC RBC Hgb Hct MCV MCH MCHC RDW Plt Count MPV Neut % (Auto) Lymph % (Auto) Winn % (Auto) Eos % (Auto) Baso % (Auto) Neut # (Auto) Lymph # (Auto) Winn # (Auto) Eos # (Auto) Baso # (Auto) Puncture Site pCO2 pO2 HCO3 ABG pH ABG Total CO2 ABG O2 Saturation ABG Base Excess Nacho Test ABG Potassium VBG pH VBG pCO2 VBG HCO3 VBG Total CO2 VBG O2 Sat (Calc) VBG Base Excess VBG Potassium A-a O2 Difference Respiratory Index Sodium 136 Chloride 104 Glucose Lactate FiO2 Crit Value Called To Crit Value Called By Crit Value Read Back Blood Gas Notified Time Potassium 3.8 Carbon Dioxide 27 Anion Gap 8 L BUN 10 Creatinine 0.8 Est GFR ( Amer) > 60 Est GFR (Non-Af Amer) > 60 Random Glucose 149 H D Calcium 8.9 Phosphorus Magnesium Total Bilirubin 0.2 AST 72 H ALT 7 L D Alkaline Phosphatase 65 Total Protein 8.3 Albumin 3.5 Globulin 4.8 H Albumin/Globulin Ratio 0.7 L Procalcitonin < 0.05 L Arterial Blood Potassium Venous Blood Potassium Urine Color Urine Clarity Urine pH Ur Specific Wilson Urine Protein Urine Glucose (UA) Urine Ketones Urine Blood Urine Nitrate Urine Bilirubin Urine Urobilinogen Ur Leukocyte Esterase Urine WBC (Auto) Urine RBC (Auto) Ur Squamous Epith Cells Urine Bacteria Assessment & Plan - Assessment and Plan (Free Text) Assessment: 43 year old female with PMHx of asthma, RA, SLE, sarcoidosis, and anemia who presented to the emergency room yesterday morning with worsening shortness of breath and cough for 1 month. Cardiology consulted for SOB. Plan: SOB Likely 2/2 to atypical pneumonia Likely not Cardiac Origin Labs: BNP, ISABELA, Per Patient, she recently had an ECHO that was normal Mgmt: Stress Test ECHO BNP ISABELA Patient discussed with Dr. Jose Alejandro Trivedi, PGY-2 <Jason Blount - Last Filed: 09/09/18 05:32> Meds - Medications Medications: Current Medications Albuterol/Ipratropium (Duoneb 3 Mg/0.5 Mg (3 Ml) Ud) 3 ml INH RQ6 [facility] Last Admin: 09/09/18 01:12 Dose: 3 ml Baclofen (Lioresal) 20 mg PO BID [facility] Last Admin: 09/08/18 17:22 Dose: 20 mg Folic Acid (Folic Acid) 1 mg PO DAILY [facility] Last Admin: 09/08/18 10:31 Dose: 1 mg Guaifenesin (Mucinex La) 600 mg PO BID [facility] Last Admin: 09/08/18 17:21 Dose: 600 mg Heparin Sodium (Porcine) (Heparin) 5,000 units SC Q12 [facility] Last Admin: 09/08/18 21:29 Dose: 5,000 units Ceftriaxone Sodium 1 gm/ (Sodium Chloride) 100 mls @ 100 mls/hr IVPB DAILY [facility]; Protocol Last Admin: 09/08/18 10:32 Dose: 100 mls/hr Vancomycin HCl 1 gm/ Sodium (Chloride) 250 mls @ 166.7 mls/hr IVPB Q12H [facility]; Protocol Last Admin: 09/08/18 20:36 Dose: 166.7 mls/hr Azithromycin 500 mg/ Sodium (Chloride) 250 mls @ 250 mls/hr IVPB DAILY@1200 [facility]; Protocol Last Admin: 09/08/18 11:43 Dose: 250 mls/hr Itraconazole (Sporanox) 100 mg PO DAILY@1600 [facility]; Protocol Last Admin: 09/08/18 17:21 Dose: 100 mg Methylprednisolone (Solu-Medrol) 60 mg IVP Q12H [facility] Last Admin: 09/08/18 20:48 Dose: 60 mg Pneumococcal Polyvalent Vaccine (Pneumovax 23 Vaccine) 0.5 ml IM .ONCE ONE Stop: 09/09/18 10:01 Results - Vital Signs Recent Vital Signs: Last Vital Signs Temp 97.6 F 09/09/18 00:00 Pulse 64 09/09/18 00:00 Resp 20 09/09/18 00:00 BP 122/77 09/09/18 00:00 Pulse Ox 97 09/09/18 00:00 - Labs Result Diagrams: 09/08/18 11:03 09/08/18 11:03 Labs: Laboratory Results - last 24 hr 09/08/18 09/08/18 09/08/18 11:03 11:03 11:03 WBC 5.1 RBC 3.60 L Hgb 10.7 L Hct 31.2 L MCV 86.8 D MCH 29.7 MCHC 34.3 RDW 16.1 H Plt Count 422 H MPV 6.9 L Neut % (Auto) 82.3 H Lymph % (Auto) 14.6 L Winn % (Auto) 2.9 Eos % (Auto) 0.0 Baso % (Auto) 0.2 Neut # (Auto) 4.2 Lymph # (Auto) 0.7 L Winn # (Auto) 0.1 Eos # (Auto) 0.0 Baso # (Auto) 0.0 Sodium 136 Potassium 3.8 Chloride 104 Carbon Dioxide 27 Anion Gap 8 L BUN 10 Creatinine 0.8 Est GFR ( Amer) > 60 Est GFR (Non-Af Amer) > 60 Random Glucose 149 H D Calcium 8.9 Total Bilirubin 0.2 AST 72 H ALT 7 L D Alkaline Phosphatase 65 NT-Pro-B Natriuret Pep Total Protein 8.3 Albumin 3.5 Globulin 4.8 H Albumin/Globulin Ratio 0.7 L Procalcitonin < 0.05 L 09/08/18 18:56 WBC RBC Hgb Hct MCV MCH MCHC RDW Plt Count MPV Neut % (Auto) Lymph % (Auto) Winn % (Auto) Eos % (Auto) Baso % (Auto) Neut # (Auto) Lymph # (Auto) Winn # (Auto) Eos # (Auto) Baso # (Auto) Sodium Potassium Chloride Carbon Dioxide Anion Gap BUN Creatinine Est GFR ( Amer) Est GFR (Non-Af Amer) Random Glucose Calcium Total Bilirubin AST ALT Alkaline Phosphatase NT-Pro-B Natriuret Pep 280 Total Protein Albumin Globulin Albumin/Globulin Ratio Procalcitonin Assessment & Plan - Assessment and Plan (Free Text) Plan: Patient seen and personally evaluated by me. Plan of care d/w the medical csr and as documented
[2018-09-09] MEDS: Albuterol-Ipratrop 3 mg / 0.5 (3 ml) UD INH SCH ×4 (01:12→20:22)
--- NOTE | 2018-09-09 02:18 | HP ---
COUNT INCLUDES THE [facility] COMPLAINT: Cough, shortness of breath x1 month. HISTORY OF PRESENT ILLNESS: This is a 43-year-old female with history of bronchial asthma, rheumatoid arthritis, systemic lupus erythematosus, sarcoidosis, and anemia, who came in because of worsening shortness of breath over a period of last one month. Along with that, she has cough, congestion, and yellow sputum production. The patient is short of breath at rest, shortness of breath at exertion, and the patient was told a month ago that her asthma and sarcoidosis is worse. The patient was given some medication. The patient did not improve. She was seen by hurricane tracker a week ago, and a chest x-ray was reviewed, and the patient was sent to emergency room. The patient in the past had a lung biopsy done last year and it showed sarcoidosis. She has been on steroid therapy since then, and she has been seeing her hurricane tracker on a regular basis. She also takes hydroxychloroquine. The patient uses inhalers, nebulizer at home. The patient denies any nausea, vomiting, or diarrhea. She denies any polyuria, polydipsia, polyphagia. She denies any hematuria, pyuria. She denies any sneezing, itchy eyes, itchy nose. According to the patient, she is weak, tired, fatigue, and she uses oxygen quite a bit. PAST MEDICAL HISTORY: Asthma, sarcoidosis, lupus, rheumatoid arthritis, anemia. SOCIAL HISTORY: She is a nonsmoker, non-EtOH user. CURRENT MEDICATIONS: She is on Baclofen, Ventolin HFA, calcium, iron, vitamin D, Humira. PHYSICAL EXAMINATION: GENERAL: A middle aged female in moderate respiratory distress. VITAL SIGNS: Blood pressure 120/58, pulse 91, respiratory rate 20, temperature 99.4. SKIN: Senile turgor. No bruises. No purpura. No petechiae. No ecchymosis. HEENT: Atraumatic and normocephalic. Negative pallor. Negative jaundice. Extraocular movements are intact. NECK: Supple. No JVD. No lymph node. No thyromegaly. No carotid bruit. CHEST WALL: Bilateral symmetrical expansion. LUNGS: Bilateral inspiratory, expiratory, fine crackles all over the lung field with decreased air entry. No rhonchi and no rales. CARDIOVASCULAR: S1, S2. Regular. ABDOMEN: Soft, nontender. Bowel sounds are positive. RECTAL: Negative. EXTREMITIES: No clubbing, cyanosis, or edema. CENTRAL NERVOUS SYSTEM: Awake, alert, oriented x3. Cranial nerves II through XII are normal. ASSESSMENT: 1. Pneumonia. 2. Exacerbation of asthma. 3. Rheumatoid arthritis. 4. Sarcoidosis. PLAN: Admit. Detailed orders are written. Seen and examined. Elvin Hidalgo MD
[2018-09-09 07:01] LABS: BASO % 0.1 % (0.0-2.0); HEMOGLOBIN 10.7 g/dL (11.0-16.0); LYMPH # 1.1 K/uL (1.0-4.3); LYMPH % 13.8 % (20.0-40.0); MEAN CELL VOLUME 84.7 fL (81.0-99.0); MEAN CORPUSCULAR HEMOGLOBIN 28.4 pg (27.0-31.0); MEAN CORPUSCULAR HGB CONC 33.6 g/dL (33.0-37.0); MEAN PLATELET VOLUME 7.1 fL (7.2-11.7); MONO # 0.3 K/uL (0.0-0.8); MONO % 3.9 % (0.0-10.0); NEUT # 6.6 K/uL (1.8-7.0); NEUT % 82.2 % (50.0-75.0); RBC 3.75 Mil/uL (3.80-5.20); RED CELL DISTRIBUTION WIDTH 16.2 % (11.5-14.5); WHITE BLOOD COUNT 8.1 K/uL (4.8-10.8)
[2018-09-09 07:24] LABS: ALB/GLOB RATIO 0.7 (1.0-2.1); ALBUMIN 3.5 g/dL (3.5-5.0); ALT/SGPT 9 U/L (9-52); AMYLASE 84 U/L (30-110); AST/SGOT 48 U/L (14-36); BLOOD UREA NITROGEN 18 mg/dL (7-17); CALCIUM 9.1 mg/dl (8.6-10.4); GFR NON-AFRICAN AMERICAN > 60
--- NOTE | 2018-09-09 07:30 | CP.PCM.PN ---
Subjective - Date & Time of Evaluation Date of Evaluation: 09/09/18 Time of Evaluation: 07:27 - Subjective Subjective: Pulm Consult note for Dr. Morrell Patient appears well today, seen after her stress test. Afebrile States her shortness of breath and cough are improving particularly when shes on NC 3L She states her sputum remains a mix of white and yellow. Denies N/V/D Patient had sputum culture obtained yesterday. Continues to receive duonebs. Dr. Blount recommended stress test Dr. Gómez ordered a rheum panel for patient as well ROS: as per HPI all systems reviewed and otherwise negative Objective - Vital Signs/Intake and Output Vital Signs (last 24 hours): Temp Pulse Resp BP Pulse Ox 97.6 F 64 20 122/77 97 09/09/18 00:00 09/09/18 00:00 09/09/18 00:00 09/09/18 00:00 09/09/18 00:00 Intake and Output: 09/09/18 09/09/18 06:59 18:59 Intake Total 0 Balance 0 - Medications Medications: Current Medications Albuterol/Ipratropium (Duoneb 3 Mg/0.5 Mg (3 Ml) Ud) 3 ml INH RQ6 [facility] Last Admin: 09/09/18 01:12 Dose: 3 ml Baclofen (Lioresal) 20 mg PO BID [facility] Last Admin: 09/08/18 17:22 Dose: 20 mg Folic Acid (Folic Acid) 1 mg PO DAILY [facility] Last Admin: 09/08/18 10:31 Dose: 1 mg Guaifenesin (Mucinex La) 600 mg PO BID [facility] Last Admin: 09/08/18 17:21 Dose: 600 mg Heparin Sodium (Porcine) (Heparin) 5,000 units SC Q12 [facility] Last Admin: 09/08/18 21:29 Dose: 5,000 units Ceftriaxone Sodium 1 gm/ (Sodium Chloride) 100 mls @ 100 mls/hr IVPB DAILY [facility]; Protocol Last Admin: 09/08/18 10:32 Dose: 100 mls/hr Vancomycin HCl 1 gm/ Sodium (Chloride) 250 mls @ 166.7 mls/hr IVPB Q12H [facility]; Protocol Last Admin: 09/08/18 20:36 Dose: 166.7 mls/hr Azithromycin 500 mg/ Sodium (Chloride) 250 mls @ 250 mls/hr IVPB DAILY@1200 [facility]; Protocol Last Admin: 09/08/18 11:43 Dose: 250 mls/hr Itraconazole (Sporanox) 100 mg PO DAILY@1600 [facility]; Protocol Last Admin: 09/08/18 17:21 Dose: 100 mg Methylprednisolone (Solu-Medrol) 60 mg IVP Q12H [facility] Last Admin: 09/08/18 20:48 Dose: 60 mg Pneumococcal Polyvalent Vaccine (Pneumovax 23 Vaccine) 0.5 ml IM .ONCE ONE Stop: 09/09/18 10:01 - Labs Labs: 09/09/18 06:44 09/09/18 06:44 - Constitutional Appears: Well, Non-toxic - Head Exam Head Exam: ATRAUMATIC, NORMOCEPHALIC - Eye Exam Eye Exam: Normal appearance - ENT Exam ENT Exam: Mucous Membranes Moist - Neck Exam Neck Exam: absent: Lymphadenopathy - Respiratory Exam Respiratory Exam: Clear to Ausculation Bilateral, NORMAL BREATHING PATTERN. absent: Rales, Rhonchi, Wheezes - Cardiovascular Exam Cardiovascular Exam: REGULAR RHYTHM, +S1, +S2 - GI/Abdominal Exam GI & Abdominal Exam: Soft, Normal Bowel Sounds - Extremities Exam Extremities Exam: Normal Inspection. absent: Pedal Edema Assessment and Plan - Assessment and Plan (Free Text) Assessment: 43 year old female with PMHx of sarcoidosis, SLE, RA, Asthma on chronic steroid and humira therapy presenting with 1 month history of increased shortness of breath and cough. Plan: 1. Shortness of breath 2/2 lung infection bacterial vs fungal Continue empiric IV antibiotics Continue empiric IV fungal switch to fluconazole from itraconazole. ID consult recommended Follow up sputum culture and cytology f/u galactomannan and B-D-glucan Potential for bronchoscopy with biopsy Procalcitonin <.05 (unlikely bacterial infection)
[2018-09-09] MEDS ORDERED: Caffeine Citrated **INJ** 20 MG/ML IV ONE (07:39)
[2018-09-09] MEDS ORDERED: Pneumococcal 23-Valent Vaccine IM ONE (10:00)
--- NOTE | 2018-09-09 10:59 | CP.PCM.PN ---
<Mendez Trivedi - Last Filed: 09/09/18 16:34> Subjective - Date & Time of Evaluation Date of Evaluation: 09/09/18 Time of Evaluation: 12:39 - Subjective Subjective: Cardiology Progress Note for Dr. Blount Patient seen and examined at bedside. No overnight events reported. Cough is improving. SOB is improving. 12 point ROS negative unless stated. Objective - Vital Signs/Intake and Output Vital Signs (last 24 hours): Temp Pulse Resp BP Pulse Ox 97.4 F L 74 20 115/75 96 09/09/18 07:46 09/09/18 07:46 09/09/18 07:46 09/09/18 07:46 09/09/18 07:46 Intake and Output: 09/09/18 09/09/18 06:59 18:59 Intake Total 0 Balance 0 - Medications Medications: Current Medications Albuterol/Ipratropium (Duoneb 3 Mg/0.5 Mg (3 Ml) Ud) 3 ml INH RQ6 [facility] Last Admin: 09/09/18 08:50 Dose: Not Given Baclofen (Lioresal) 20 mg PO BID [facility] Last Admin: 09/08/18 17:22 Dose: 20 mg Folic Acid (Folic Acid) 1 mg PO DAILY [facility] Last Admin: 09/08/18 10:31 Dose: 1 mg Guaifenesin (Mucinex La) 600 mg PO BID [facility] Last Admin: 09/08/18 17:21 Dose: 600 mg Heparin Sodium (Porcine) (Heparin) 5,000 units SC Q12 [facility] Last Admin: 09/08/18 21:29 Dose: 5,000 units Ceftriaxone Sodium 1 gm/ (Sodium Chloride) 100 mls @ 100 mls/hr IVPB DAILY [facility]; Protocol Last Admin: 09/08/18 10:32 Dose: 100 mls/hr Vancomycin HCl 1 gm/ Sodium (Chloride) 250 mls @ 166.7 mls/hr IVPB Q12H [facility]; Protocol Last Admin: 09/08/18 20:36 Dose: 166.7 mls/hr Azithromycin 500 mg/ Sodium (Chloride) 250 mls @ 250 mls/hr IVPB DAILY@1200 [facility]; Protocol Last Admin: 09/08/18 11:43 Dose: 250 mls/hr Itraconazole (Sporanox) 100 mg PO DAILY@1600 [facility]; Protocol Last Admin: 09/08/18 17:21 Dose: 100 mg Methylprednisolone (Solu-Medrol) 60 mg IVP Q12H [facility] Last Admin: 09/08/18 20:48 Dose: 60 mg - Labs Labs: 09/09/18 06:44 09/09/18 06:44 - Additional Findings Additional findings: - Constitutional Appears: Well, Non-toxic, No Acute Distress - Head Exam Head Exam: ATRAUMATIC, NORMAL INSPECTION, NORMOCEPHALIC - Eye Exam Eye Exam: EOMI, Normal appearance - ENT Exam ENT Exam: Mucous Membranes Moist - Respiratory Exam Respiratory Exam: Rales (Mild, Left Sided (Improves with cough)). absent: Clear to Auscultation Bilateral - Cardiovascular Exam Cardiovascular Exam: +S1, +S2 Additional comments: +S3 Heart Sound - GI/Abdominal Exam GI & Abdominal Exam: Soft. absent: Tenderness - Extremities Exam Extremities exam: Negative for: pedal edema - Neurological Exam Neurological exam: Alert, Oriented x3 - Psychiatric Exam Psychiatric exam: Normal Affect, Normal Mood - Skin Skin Exam: Dry, Intact, Normal Color, Warm Assessment and Plan - Assessment and Plan (Free Text) Assessment: 43 year old female with PMHx of asthma, RA, SLE, sarcoidosis, and anemia who presented to the emergency room yesterday morning with worsening shortness of breath and cough for 1 month. Cardiology consulted for SOB. Plan: SOB Likely 2/2 to lung infection bacterial vs fungal. Likely not Cardiac Origin, but of Pulmonary Etiology Labs: BNP - Negative. Mgmt: Stress Test: Normal ECHO: Normal EF, Will Review BNP - NEGATIVE. Dispo: Likely not Cardiac Origin. Cont. Medical management. Patient discussed with Dr. Jose Alejandro Trivedi, PGY2 <Jason Blount - Last Filed: 09/09/18 22:10> Objective - Vital Signs/Intake and Output Vital Signs (last 24 hours): Temp Pulse Resp BP Pulse Ox 97.6 F 80 20 113/72 98 09/09/18 15:00 09/09/18 15:00 09/09/18 15:00 09/09/18 15:00 09/09/18 15:00 Intake and Output: 09/09/18 09/10/18 18:59 06:59 Intake Total 650 Balance 650 - Medications Medications: Current Medications Albuterol/Ipratropium (Duoneb 3 Mg/0.5 Mg (3 Ml) Ud) 3 ml INH RQ6 [facility] Last Admin: 09/09/18 20:22 Dose: 3 ml Baclofen (Lioresal) 20 mg PO BID [facility] Last Admin: 09/09/18 17:46 Dose: 20 mg Folic Acid (Folic Acid) 1 mg PO DAILY [facility] Last Admin: 09/09/18 12:05 Dose: Not Given Guaifenesin (Mucinex La) 600 mg PO BID [facility] Last Admin: 09/09/18 17:06 Dose: 600 mg Heparin Sodium (Porcine) (Heparin) 5,000 units SC Q12 [facility] Last Admin: 09/09/18 21:36 Dose: 5,000 units Ceftriaxone Sodium 1 gm/ (Sodium Chloride) 100 mls @ 100 mls/hr IVPB DAILY [facility]; Protocol Last Admin: 09/09/18 12:30 Dose: 100 mls/hr Vancomycin HCl 1 gm/ Sodium (Chloride) 250 mls @ 166.7 mls/hr IVPB Q12H [facility]; Protocol Last Admin: 09/09/18 19:26 Dose: 166.7 mls/hr Azithromycin 500 mg/ Sodium (Chloride) 250 mls @ 250 mls/hr IVPB DAILY@1200 [facility]; Protocol Last Admin: 09/09/18 13:55 Dose: 250 mls/hr Fluconazole (Diflucan Iv 200 Mg/100 Ml Ns) 100 mls @ 100 mls/hr IVPB 1430 [facility]; Protocol Last Admin: 09/09/18 15:07 Dose: 100 mls/hr Methylprednisolone (Solu-Medrol) 60 mg IVP Q12H [facility] Last Admin: 09/09/18 21:37 Dose: 60 mg - Labs Labs: 09/09/18 06:44 09/09/18 06:44 Assessment and Plan - Assessment and Plan (Free Text) Plan: Patient seen and evaluated personally by me. Plan of care d/w the biomedical technician and as documented
[2018-09-09] MEDS: guaiFENesin 600 mg ER Tab PO SCH ×2 (12:05→17:06)
[2018-09-09 12:14] LABS: ANTI STREPTOLYSIN O POSITIVE (NEGATIVE)
[2018-09-09] MEDS: MethylPREDNISolone 40 mg Vial IVP SCH ×2 (12:34→21:37)
[2018-09-09] MEDS: Azithromycin 500 MG in Sodium Chloride 0.9% 250 ML IVPB SCH (13:55)
[2018-09-09] MEDS: Fluconazole IV 200mg/100 ml NS 100 ML IVPB SCH (15:07)
--- NOTE | 2018-09-09 16:59 | CARD ---
APPROVED REPORT Date of service: 09/09/2018 Protocol: LEXISCAN Test Type: LEXISCAN STRESS Test Indications: SOB Target HR: 178 bpm Resting ECG: NSR Resting Heart Rate: 62 bpm Resting Blood Pressure: 128/80mmHg submaximum (85%): 151 bpm TEST SUMMARY PREINFSNHYPERV.26:[id number]/80.0. INFUSIONDOSE 100:[id number]/80.0. CAFMXDBRG00:[id number]/80.0. PROCEDURE Pharmacologic stress testing was performed using 0.4mg per 5ml of regadenoson given intravenously over 7-10 seconds. POST EXERCISE Reason for Termination: Protocol Completed Target HR: No Max HR: 72 bpm 64% of Maximum Predicted HR: 178 bpm Exercise duration: 00:30 min:sec, 0 Stage Exercise capacity: 1.0METs Max Blood Pressure: 130/80mmHg Blood Pressure response to exercise: normal resting BP - appropriate response Heart Rate response to exercise: appropriate Chest Pain: No, none Angina index: 0 Arrhythmia: No, none ST Change: No, none Deviation: 0 mm INTERPRETATION Stress EKG Conclusion: NEGATIVE LEXISCAN STRESS TEST NORMAL BP RESPONSE TO LEXISCAN NUCLEAR STUDIES TO BE READ SEPARATELY EXAM: Myocardial Perfusion REST/STRESS Imaging Protocol The imaging protocol used to acquire images was Rest Tc-99m/stress Tc-99m 1 day Rest Spect myocardial perfusion imaging was performed in supine position 45 minutes following the injection of 12.5 mCi of Tc-99 Myoview. Gated Stress Spect was performed 45 minutes after intravenous 32.4 mCi Tc-99 Myoview injection. The images were gated to evaluate regional wall motion and calculate ventricular ejection fraction.Images were reconstructed using backfilter projection method in short horizontal and verticle long axis. Spect slices were generated. RESTING DATA EWO258.81auOU4.30L/min ESV34.00mlMyocardial Cmzu827.00g Av. Heart Rate60.00bpm EF72.00% STRESS DATA EDV93.93rzLB2.70L/min ESV21.00mlMyocardial Huzu134.00g EF77.00% Regional WT score at stress:1.00 Regional WM score at stress:0.00 Summed WT score at stress:5.00 Av. Heart Rate66.00bpmSummed WM score at stress:0.00 LV Perf. Quant 17 Seg. SSS0.00 17 Seg. SRS0.00 17 Seg. SDS0.00 Stress Defect Extent (% LAD)0.00Rest Defect Extent (% LAD)0.00Rev. Defect Extent (% LAD)0.00 Stress Defect Extent (% LCX)0.00Rest Defect Extent (% LCX)0.00Rev. Defect Extent (% LCX)0.00 Stress Defect Extent (% RCA)0.00Rest Defect Extent (% RCA)0.00Rev. Defect Extent (% RCA)0.00 Stress Defect Extent (% DEEP)0.00Rest Defect Extent (% DEEP)0.00Rev. Defect Extent (% DEEP)0.00 IMPRESSION Normal Myocardial Perfusion exercise stress study Left Ventricle LV Function:Left ventricle systolic function is normal. The Ejection Fraction is >70%. Metabolism/Perfusion Defects: There is no scan evidence of stress-induced ischemia noted. There are no defects. There are no perfusion/metabolism defects. Conclusion 1. There is no scan evidence of stress-induced ischemia noted. 2. Left ventricle systolic function is normal. 3. The Ejection Fraction is >70%.
--- NOTE | 2018-09-09 21:14 | CARD ---
APPROVED REPORT Date of service: 09/09/2018 EXAM: Two-dimensional and M-mode echocardiogram with Doppler and color Doppler. Other Information Quality : GoodRhythm : INDICATION Dyspnea 2D DIMENSIONS IVSd0.9 (0.7-1.1cm)Aortic Root (2D)2.9 (2.0-3.7cm) LVDd4.5 (3.9-5.9cm)PWd0.4 (0.7-1.1cm) LA Srcysp91 (18-58mL)LVDs2.6 (2.5-4.0cm) FS (%) 40.0 %LVEF (%)60.0 (>50%) LVEF (Bhatt's)59.30 %IVC0.00 cm M-Mode DIMENSIONS RVDd2.15 (2.1-3.2cm)Left Atrium (MM)4.20 (2.5-4.0cm) IVSd0.68 (0.7-1.1cm)Aortic Root2.77 (2.2-3.7cm) LVDd4.30 (4.0-5.6cm)Aortic Cusp Exc.1.95 (1.5-2.0cm) PWd0.72 (0.7-1.1cm)FS (%) 33 % LVDs2.86 (2.0-3.8cm)TAPSE23.23 cm LVEF (%)62 (>50%) Mitral Valve MV E Dvoakgss83.3cm/sMV A Laqxmcax62.3cm/sE/A ratio0.9 TDI Lateral E' Peak V9.97cm/sMedial E' Peak V9.77cm/sE/Lateral E'5.3 E/Medial E'5.5 Tricuspid Valve TR Peak Mcirhsyu100wo/sTR Peak Gr.50xcZdKIUG35vdMe LEFT VENTRICLE The left ventricle is normal size. There is normal left ventricular wall thickness. Left ventricle systolic function is normal. The Ejection Fraction is 65-70%. There is normal LV segmental wall motion. The left ventricular diastolic function is normal. There is no ventricular septal defect visualized. RIGHT VENTRICLE The right ventricle is normal size. The right ventricular systolic function is normal. ATRIA The left atrium size is normal. The right atrium size is normal. AORTIC VALVE The aortic valve is tri-cuspid. The aortic valve is normal in structure. No aortic regurgitation is present. There is no aortic valvular stenosis. MITRAL VALVE The mitral valve is normal in structure. There is no evidence of mitral valve prolapse. There is no mitral valve regurgitation noted. TRICUSPID VALVE The tricuspid valve is normal in structure. There is trace tricuspid regurgitation. Right ventricular systolic pressure is estimated at less than 30 mmHg. There is no pulmonary hypertension. PULMONIC VALVE The pulmonary valve is normal in structure. There is no pulmonic valvular regurgitation. GREAT VESSELS The aortic root is normal in size. The ascending aorta is normal in size. The IVC is normal in size and collapses >50% with inspiration. PERICARDIAL EFFUSION There is no pericardial effusion. <Conclusion> Left ventricle systolic function is normal. The Ejection Fraction is 65-70%. The left ventricular diastolic function is normal.
--- NOTE | 2018-09-09 22:33 | CP.PCM.PN ---
Subjective - Date & Time of Evaluation Date of Evaluation: 09/09/18 Time of Evaluation: 08:40 - Subjective Subjective: dict Objective - Vital Signs/Intake and Output Vital Signs (last 24 hours): Temp Pulse Resp BP Pulse Ox 97.6 F 80 20 113/72 98 09/09/18 15:00 09/09/18 15:00 09/09/18 15:00 09/09/18 15:00 09/09/18 15:00 Intake and Output: 09/09/18 09/10/18 18:59 06:59 Intake Total 650 Balance 650 - Medications Medications: Current Medications Acetaminophen (Tylenol 325mg Tab) 650 mg PO STAT STA Stop: 09/09/18 22:30 Albuterol/Ipratropium (Duoneb 3 Mg/0.5 Mg (3 Ml) Ud) 3 ml INH RQ6 SARAH Last Admin: 09/09/18 20:22 Dose: 3 ml Baclofen (Lioresal) 20 mg PO BID SARAH Last Admin: 09/09/18 17:46 Dose: 20 mg Folic Acid (Folic Acid) 1 mg PO DAILY SARAH Last Admin: 09/09/18 12:05 Dose: Not Given Guaifenesin (Mucinex La) 600 mg PO BID SARAH Last Admin: 09/09/18 17:06 Dose: 600 mg Heparin Sodium (Porcine) (Heparin) 5,000 units SC Q12 [facility]AH Last Admin: 09/09/18 21:36 Dose: 5,000 units Ceftriaxone Sodium 1 gm/ (Sodium Chloride) 100 mls @ 100 mls/hr IVPB DAILY SARAH; Protocol Last Admin: 09/09/18 12:30 Dose: 100 mls/hr Vancomycin HCl 1 gm/ Sodium (Chloride) 250 mls @ 166.7 mls/hr IVPB Q12H SARAH; Protocol Last Admin: 09/09/18 19:26 Dose: 166.7 mls/hr Azithromycin 500 mg/ Sodium (Chloride) 250 mls @ 250 mls/hr IVPB DAILY@1200 SAR[facility]; Protocol Last Admin: 09/09/18 13:55 Dose: 250 mls/hr Fluconazole (Diflucan Iv 200 Mg/100 Ml Ns) 100 mls @ 100 mls/hr IVPB 1430 [facility]; Protocol Last Admin: 09/09/18 15:07 Dose: 100 mls/hr Methylprednisolone (Solu-Medrol) 60 mg IVP Q12H [facility] Last Admin: 09/09/18 21:37 Dose: 60 mg - Labs Labs: 09/09/18 06:44 09/09/18 06:44
[2018-09-10] MEDS: Albuterol-Ipratrop 3 mg / 0.5 (3 ml) UD INH SCH ×4 (01:12→19:42)
--- NOTE | 2018-09-10 02:24 | PN ---
DATE: 09/09/2018 SUBJECTIVE: The patient is still coughing, wheezing and short of breath. No fever or chills. She is on antibiotics. Seen by Pulmonary. PHYSICAL EXAMINATION: VITAL SIGNS: Blood pressure 113/72, pulse 80, respiratory rate 20, temperature 97.6. LUNGS: Bilateral fine crackles are noted at the lung jimenez. Decrease air entry. CARDIOVASCULAR SYSTEM: S1 and S2, regular. ABDOMEN: Soft. ASSESSMENT: 1. Pneumonia. 2. Sarcoidosis, could be interstitial lung disease. 3. Rheumatoid arthritis. PLAN: Antibiotics. Oxygen. Nebulizer. Pulmonary followup. Monitor the patient. Elvin Hidalgo MD
[2018-09-10 07:23] LABS: BASO % 0.1 % (0.0-2.0); HEMOGLOBIN 10.8 g/dL (11.0-16.0); LYMPH # 0.9 K/uL (1.0-4.3); LYMPH % 8.8 % (20.0-40.0); MEAN CELL VOLUME 86.3 fL (81.0-99.0); MEAN CORPUSCULAR HEMOGLOBIN 29.8 pg (27.0-31.0); MEAN CORPUSCULAR HGB CONC 34.6 g/dL (33.0-37.0); MEAN PLATELET VOLUME 7.1 fL (7.2-11.7); MONO # 0.2 K/uL (0.0-0.8); MONO % 1.8 % (0.0-10.0); NEUT # 8.7 K/uL (1.8-7.0); NEUT % 89.3 % (50.0-75.0); PLATELET COUNT 443 K/uL (130-400); RBC 3.61 Mil/uL (3.80-5.20); RED CELL DISTRIBUTION WIDTH 15.8 % (11.5-14.5); WHITE BLOOD COUNT 9.7 K/uL (4.8-10.8)
[2018-09-10 07:40] LABS: BLOOD UREA NITROGEN 26 mg/dL (7-17); CALCIUM 9.3 mg/dl (8.6-10.4); GFR NON-AFRICAN AMERICAN > 60
[2018-09-10 08:53] LABS: ANISOCYTOSIS SLIGHT; HYPOCHROMIC SLIGHT; LYMPHOCYTE 11 % (20-40); MONOCYTE 1 % (0-10); NEUTROPHIL 88 % (50-75); POIKILOCYTOSIS SLIGHT; TOTAL CELLS COUNTED 100
[2018-09-10 08:54] LABS: BURR CELLS SLIGHT; OVALOCYTES SLIGHT; PLATELET ESTIMATE SLIGHTLY INCREASED (NORMAL)
[2018-09-10] MEDS: guaiFENesin 600 mg ER Tab PO SCH ×2 (09:23→17:40)
[2018-09-10] MEDS: MethylPREDNISolone 40 mg Vial IVP SCH ×2 (09:24→21:26)
--- NOTE | 2018-09-10 09:50 | CP.PCM.PN ---
<Loida Oconnor - Last Filed: 09/10/18 11:49> Subjective - Date & Time of Evaluation Date of Evaluation: 09/10/18 Time of Evaluation: 09:47 - Subjective Subjective: Pulm Consult note for Dr. Morrell Patient appears well today. Afebrile. Patient states she has slight pain when she coughs on her right lower ribs. States her shortness of breath and cough continue to be managed well on nasal cannula. Patient had sputum culture obtained yesterday, gram stain showed gram positive cocci and bacilli Stress test normal and echo normal as per Dr. Blount. Dr. Gómez ordered a rheum panel, antistreptolysin back positive. ROS: patient admits to productive cough, SOB, rib pain Patient denies fever, chills, chest pain, diarrhea, weight loss, hemoptysis Objective - Vital Signs/Intake and Output Vital Signs (last 24 hours): Temp Pulse Resp BP Pulse Ox 97.8 F 71 20 118/74 98 09/10/18 07:15 09/10/18 07:15 09/10/18 07:15 09/10/18 07:15 09/10/18 07:15 Intake and Output: 09/10/18 09/10/18 06:59 18:59 Intake Total 680 Balance 680 - Medications Medications: Current Medications Albuterol/Ipratropium (Duoneb 3 Mg/0.5 Mg (3 Ml) Ud) 3 ml INH RQ6 [facility] Last Admin: 09/10/18 08:24 Dose: 3 ml Baclofen (Lioresal) 20 mg PO BID [facility] Last Admin: 09/10/18 09:23 Dose: 20 mg Folic Acid (Folic Acid) 1 mg PO DAILY [facility] Last Admin: 09/10/18 09:24 Dose: 1 mg Guaifenesin (Mucinex La) 600 mg PO BID [facility] Last Admin: 09/10/18 09:23 Dose: 600 mg Heparin Sodium (Porcine) (Heparin) 5,000 units SC Q12 SARAH Last Admin: 09/10/18 09:24 Dose: 5,000 units Ceftriaxone Sodium 1 gm/ (Sodium Chloride) 100 mls @ 100 mls/hr IVPB DAILY [facility]; Protocol Last Admin: 09/09/18 12:30 Dose: 100 mls/hr Vancomycin HCl 1 gm/ Sodium (Chloride) 250 mls @ 166.7 mls/hr IVPB Q12H SARAH; Protocol Last Admin: 09/10/18 08:08 Dose: 166.7 mls/hr Azithromycin 500 mg/ Sodium (Chloride) 250 mls @ 250 mls/hr IVPB DAILY@1200 SARAH; Protocol Last Admin: 09/09/18 13:55 Dose: 250 mls/hr Fluconazole (Diflucan Iv 200 Mg/100 Ml Ns) 100 mls @ 100 mls/hr IVPB 1430 SARAH; Protocol Last Admin: 09/09/18 15:07 Dose: 100 mls/hr Methylprednisolone (Solu-Medrol) 60 mg IVP Q12H [facility] Last Admin: 09/10/18 09:24 Dose: 60 mg - Labs Labs: 09/10/18 07:10 09/10/18 07:10 - Constitutional Appears: Well, Non-toxic, No Acute Distress - Head Exam Head Exam: ATRAUMATIC, NORMOCEPHALIC - Eye Exam Eye Exam: Normal appearance - ENT Exam ENT Exam: Mucous Membranes Moist - Respiratory Exam Respiratory Exam: Chest Wall Tenderness (on left side when she coughs), Clear to Ausculation Bilateral, NORMAL BREATHING PATTERN. absent: Rales, Rhonchi, Wheezes, Respiratory Distress - Cardiovascular Exam Cardiovascular Exam: REGULAR RHYTHM, +S1, +S2. absent: Tachycardia, JVD - GI/Abdominal Exam GI & Abdominal Exam: Soft, Normal Bowel Sounds. absent: Distended - Extremities Exam Extremities Exam: Normal Inspection. absent: Calf Tenderness, Pedal Edema, Tenderness - Back Exam Back Exam: absent: CVA tenderness (L), CVA tenderness (R) - Skin Skin Exam: Dry, Warm Assessment and Plan - Assessment and Plan (Free Text) Assessment: 43 year old female with PMHx of sarcoidosis, SLE, RA, Asthma on chronic steroid and humira therapy presenting with 1 month history of increased shortness of breath and cough. Plan: 1. Shortness of breath 2/2 lung infection bacterial vs fungal Continue empiric IV antibiotics pending cultures Follow up sputum culture and cytology- Gram Positive cocci in chains and bacilli Continue empiric IV fungal itraconazole. ID consult recommended f/u galactomannan and B-D-glucan pending Positive streptolysin O antibody and CCRP IgG Potential for bronchoscopy with biopsy Procalcitonin <.05 <Sergo Morrell - Last Filed: 09/10/18 15:36> Objective - Vital Signs/Intake and Output Vital Signs (last 24 hours): Temp Pulse Resp BP Pulse Ox 97.8 F 71 20 118/74 98 09/10/18 07:15 09/10/18 07:15 09/10/18 07:15 09/10/18 07:15 09/10/18 07:15 Intake and Output: 09/10/18 09/10/18 06:59 18:59 Intake Total 680 1200 Balance 680 1200 - Medications Medications: Current Medications Albuterol/Ipratropium (Duoneb 3 Mg/0.5 Mg (3 Ml) Ud) 3 ml INH RQ6 SARAH Last Admin: 09/10/18 13:51 Dose: 3 ml Baclofen (Lioresal) 20 mg PO BID SARAH Last Admin: 09/10/18 09:23 Dose: 20 mg Folic Acid (Folic Acid) 1 mg PO DAILY SARAH Last Admin: 09/10/18 09:24 Dose: 1 mg Guaifenesin (Mucinex La) 600 mg PO BID SARAH Last Admin: 09/10/18 09:23 Dose: 600 mg Heparin Sodium (Porcine) (Heparin) 5,000 units SC Q12 SARAH Last Admin: 09/10/18 09:24 Dose: 5,000 units Ceftriaxone Sodium 1 gm/ (Sodium Chloride) 100 mls @ 100 mls/hr IVPB DAILY SARAH; Protocol Last Admin: 09/10/18 10:01 Dose: 100 mls/hr Vancomycin HCl 1 gm/ Sodium (Chloride) 250 mls @ 166.7 mls/hr IVPB Q12H SARAH; Protocol Last Admin: 09/10/18 08:08 Dose: 166.7 mls/hr Azithromycin 500 mg/ Sodium (Chloride) 250 mls @ 250 mls/hr IVPB DAILY@1200 SARAH; Protocol Last Admin: 09/10/18 11:00 Dose: 250 mls/hr Fluconazole (Diflucan Iv 200 Mg/100 Ml Ns) 100 mls @ 100 mls/hr IVPB 1430 SARAH; Protocol Last Admin: 09/10/18 13:44 Dose: 100 mls/hr Methylprednisolone (Solu-Medrol) 60 mg IVP Q12H SARAH Last Admin: 09/10/18 09:24 Dose: 60 mg Pneumococcal Polyvalent Vaccine (Pneumovax 23 Vaccine) 0.5 ml IM .ONCE ONE Stop: 09/11/18 10:01 - Labs Labs: 09/10/18 07:10 09/10/18 07:10 Attending/Attestation - Attestation I have personally seen and examined this patient.: Yes I have fully participated in the care of the patient.: Yes I have reviewed all pertinent clinical information, including history, physical exam and plan: Yes Notes (Text): 09/10/18 15:35 Patient seen and examined Still complaining of cough but breathing much improved Elevated antistreptolysin O consistent with Streptococcus infection patient on Fluconazole, azithromycin infectious disease consult Seen by rheumatology and multiple tests ordered Galactomannan antigen
--- NOTE | 2018-09-10 10:13 | CARD ---
APPROVED REPORT Date of service: 09/07/2018 EKG Measurement Heart [id number] <Conclusion> Normal sinus rhythm Nonspecific T wave abnormality Borderline
[2018-09-10] MEDS: Azithromycin 500 MG in Sodium Chloride 0.9% 250 ML IVPB SCH (11:00)
[2018-09-10 12:51] LABS: RNP <1.0 AI (<1.0)
[2018-09-10] MEDS: Fluconazole IV 200mg/100 ml NS 100 ML IVPB SCH (13:44)
--- NOTE | 2018-09-10 16:45 | CT ---
Date of service: 09/10/2018 PROCEDURE: CT HEAD WITHOUT CONTRAST. HISTORY: Headache COMPARISON: None available. TECHNIQUE: Axial computed tomography images were obtained through the head/brain without intravenous contrast. Radiation dose: Total exam DLP = 1046.9 mGy-cm. This CT exam was performed using one or more of the following dose reduction techniques: Automated exposure control, adjustment of the mA and/or kV according to patient size, and/or use of iterative reconstruction technique. FINDINGS: HEMORRHAGE: No acute parenchymal, subarachnoid or extra-axial hemorrhage. BRAIN: No mass effect or edema. No atrophy or chronic microvascular ischemic changes. No obvious parenchymal nor extra-axial mass or collection seen on this noncontrast exam. VENTRICLES: No obstructive hydrocephalus. CALVARIUM: Calvarium intact PARANASAL SINUSES: Unremarkable as visualized. No significant inflammatory changes. Visualized paranasal sinuses well-developed and currently well-aerated. MASTOID AIR CELLS: Unremarkable as visualized. No inflammatory changes. OTHER FINDINGS: None. IMPRESSION: No acute intracranial hemorrhage.
--- NOTE | 2018-09-10 17:02 | CP.PCM.PN ---
Subjective - Date & Time of Evaluation Date of Evaluation: 09/10/18 Time of Evaluation: 08:20 - Subjective Subjective: Patient seen and examined at bedside. Dyspnea with minimal exertion. No chest pain Physical Examination - Additional Findings Additional findings: - Constitutional Appears: Well, Non-toxic, No Acute Distress - Head Exam Head Exam: ATRAUMATIC, NORMAL INSPECTION, NORMOCEPHALIC - Eye Exam Eye Exam: EOMI, Normal appearance - ENT Exam ENT Exam: Mucous Membranes Moist - Respiratory Exam Respiratory Exam: Rales (Mild, Left Sided (Improves with cough)). absent: Clear to Auscultation Bilateral - Cardiovascular Exam Cardiovascular Exam: +S1, +S2 Additional comments: +S3 Heart Sound - GI/Abdominal Exam GI & Abdominal Exam: Soft. absent: Tenderness - Extremities Exam Extremities exam: Negative for: pedal edema - Neurological Exam Neurological exam: Alert, Oriented x3 - Psychiatric Exam Psychiatric exam: Normal Affect, Normal Mood - Skin Skin Exam: Dry, Intact, Normal Color, Warm Assessment and Plan - Assessment and Plan (Free Text) Assessment: 43 year old female with PMHx of asthma, RA, SLE, sarcoidosis, and anemia who presented to the emergency room yesterday morning with worsening shortness of breath and cough for 1 month. Cardiology consulted for SOB. Plan: SOB Likely 2/2 to lung infection bacterial vs fungal. Likely not Cardiac Origin, but of Pulmonary Etiology Labs: BNP - Negative. Mgmt: Stress Test: Normal ECHO: Normal EF, Will Review BNP - NEGATIVE. will follow Objective - Vital Signs/Intake and Output Vital Signs (last 24 hours): Temp Pulse Resp BP Pulse Ox 97.7 F 74 20 121/76 97 09/10/18 15:00 09/10/18 15:00 09/10/18 15:00 09/10/18 15:00 09/10/18 15:00 Intake and Output: 09/10/18 09/10/18 06:59 18:59 Intake Total 680 1200 Balance 680 1200 - Medications Medications: Current Medications Albuterol/Ipratropium (Duoneb 3 Mg/0.5 Mg (3 Ml) Ud) 3 ml INH RQ6 [facility] Last Admin: 09/10/18 13:51 Dose: 3 ml Baclofen (Lioresal) 20 mg PO BID [facility] Last Admin: 09/10/18 09:23 Dose: 20 mg Folic Acid (Folic Acid) 1 mg PO DAILY [facility] Last Admin: 09/10/18 09:24 Dose: 1 mg Guaifenesin (Mucinex La) 600 mg PO BID SARAH Last Admin: 09/10/18 09:23 Dose: 600 mg Heparin Sodium (Porcine) (Heparin) 5,000 units SC Q12 [facility]AH Last Admin: 09/10/18 09:24 Dose: 5,000 units Ceftriaxone Sodium 1 gm/ (Sodium Chloride) 100 mls @ 100 mls/hr IVPB DAILY SARAH; Protocol Last Admin: 09/10/18 10:01 Dose: 100 mls/hr Vancomycin HCl 1 gm/ Sodium (Chloride) 250 mls @ 166.7 mls/hr IVPB Q12H SARAH; Protocol Last Admin: 09/10/18 08:08 Dose: 166.7 mls/hr Azithromycin 500 mg/ Sodium (Chloride) 250 mls @ 250 mls/hr IVPB DAILY@1200 SARAH; Protocol Last Admin: 09/10/18 11:00 Dose: 250 mls/hr Fluconazole (Diflucan Iv 200 Mg/100 Ml Ns) 100 mls @ 100 mls/hr IVPB 1430 SARAH; Protocol Last Admin: 09/10/18 13:44 Dose: 100 mls/hr Methylprednisolone (Solu-Medrol) 60 mg IVP Q12H [facility] Last Admin: 09/10/18 09:24 Dose: 60 mg Pneumococcal Polyvalent Vaccine (Pneumovax 23 Vaccine) 0.5 ml IM .ONCE ONE Stop: 09/11/18 10:01 - Labs Labs: 09/10/18 07:10 09/10/18 07:10
--- NOTE | 2018-09-10 18:46 | CP.PCM.CON ---
History of Present Illness - History of Present Illness History of Present Illness: INFECTIOUS DISEASE CONSULT; HPI ; DICTATED; # [id number]. SEE ORDERS. CASE DISCUSSED WITH STAFF/ RESIDENT DR Lesa WYATT Past Patient History - Past Medical History & Family History Past Medical History?: Yes - Past Social History Smoking Status: Never Smoked - PULMONARY Hx Asthma: Yes - ENDOCRINE/METABOLIC Hx Endocrine Disorders: Yes Hx Systemic Lupus Erythematosus: Yes - HEMATOLOGICAL/ONCOLOGICAL Hx Anemia: Yes - MUSCULOSKELETAL/RHEUMATOLOGICAL Hx Falls: No Hx Rheumatoid Arthritis: Yes - PSYCHIATRIC Hx Substance Use: No - SURGICAL HISTORY Hx Cholecystectomy: Yes - ANESTHESIA Hx Anesthesia: Yes Hx Anesthesia Reactions: No Meds Allergies/Adverse Reactions: Allergies Allergy/AdvReac Type Severity Reaction Status Date / Time No Known Allergies Allergy Verified 05/26/17 12:44 - Medications Medications: Current Medications Albuterol/Ipratropium (Duoneb 3 Mg/0.5 Mg (3 Ml) Ud) 3 ml INH RQ6 [facility] Last Admin: 09/10/18 13:51 Dose: 3 ml Baclofen (Lioresal) 20 mg PO BID [facility] Last Admin: 09/10/18 17:40 Dose: 20 mg Folic Acid (Folic Acid) 1 mg PO DAILY [facility] Last Admin: 09/10/18 09:24 Dose: 1 mg Guaifenesin (Mucinex La) 600 mg PO BID [facility] Last Admin: 09/10/18 17:40 Dose: 600 mg Heparin Sodium (Porcine) (Heparin) 5,000 units SC Q12 [facility] Last Admin: 09/10/18 09:24 Dose: 5,000 units Ceftriaxone Sodium 1 gm/ (Sodium Chloride) 100 mls @ 100 mls/hr IVPB DAILY SARAH; Protocol Last Admin: 09/10/18 10:01 Dose: 100 mls/hr Vancomycin HCl 1 gm/ Sodium (Chloride) 250 mls @ 166.7 mls/hr IVPB Q12H SARAH; Protocol Last Admin: 09/10/18 08:08 Dose: 166.7 mls/hr Azithromycin 500 mg/ Sodium (Chloride) 250 mls @ 250 mls/hr IVPB DAILY@1200 SARAH; Protocol Last Admin: 09/10/18 11:00 Dose: 250 mls/hr Fluconazole (Diflucan Iv 200 Mg/100 Ml Ns) 100 mls @ 100 mls/hr IVPB 1430 SARAH; Protocol Last Admin: 09/10/18 13:44 Dose: 100 mls/hr Methylprednisolone (Solu-Medrol) 60 mg IVP Q12H [facility] Last Admin: 09/10/18 09:24 Dose: 60 mg Pneumococcal Polyvalent Vaccine (Pneumovax 23 Vaccine) 0.5 ml IM .ONCE ONE Stop: 09/11/18 10:01 Senna/Docusate Sodium (Senokot S 50 Mg-8.6 Mg) 2 tab PO HS SARAH Sumatriptan Succinate (Imitrex Tab) 50 mg PO Q2 PRN PRN Reason: Migraine headache Results - Vital Signs Recent Vital Signs: Last Vital Signs Temp 97.7 F 09/10/18 15:00 Pulse 74 09/10/18 15:00 Resp 20 09/10/18 15:00 BP 121/76 09/10/18 15:00 Pulse Ox 97 09/10/18 15:00 - Labs Result Diagrams: 09/10/18 07:10 09/10/18 07:10 Labs: Laboratory Results - last 24 hr 09/09/18 09/10/18 09/10/18 06:44 07:10 07:10 WBC 9.7 RBC 3.61 L Hgb 10.8 L Hct 31.2 L MCV 86.3 MCH 29.8 MCHC 34.6 RDW 15.8 H Plt Count 443 H MPV 7.1 L Neut % (Auto) 89.3 H Lymph % (Auto) 8.8 L Lumpkin % (Auto) 1.8 Eos % (Auto) 0.0 Baso % (Auto) 0.1 Neut # (Auto) 8.7 H Lymph # (Auto) 0.9 L [place]kin # (Auto) 0.2 Eos # (Auto) 0.0 Baso # (Auto) 0.0 Neutrophils % (Manual) 88 H Lymphocytes % (Manual) 11 L Monocytes % (Manual) 1 Platelet Estimate Slightly increased H Hypochromasia (manual) Slight Poikilocytosis (manual Slight Anisocytosis (manual) Slight Ovalocytes Slight Yadira Cells Slight Sodium 135 Potassium 4.8 Chloride 103 Carbon Dioxide 28 Anion Gap 9 L BUN 26 H Creatinine 0.8 Est GFR ( Amer) > 60 Est GFR (Non-Af Amer) > 60 Random Glucose 157 H Calcium 9.3 Cycl Citrul Peptide IgG >250 H SS-A Antibody <1.0 SS-B Ab Interp Negative SS-B Antibody <1.0 CANDY MAKER Antibody <1.0 CANDY MAKER Antibody Interp Negative Double Strand DNA Ab 1
[2018-09-10] MEDS: Sulfamethoxazole/Trimethoprim 240 MG in Dextrose 5% In Water 250 ML IVPB SCH (21:26)
[2018-09-10] MEDS: Docusate-Senna 50 mg-8.6 mg Tab PO SCH (21:29)
--- NOTE | 2018-09-10 21:33 | CP.PCM.PN ---
Subjective - Date & Time of Evaluation Date of Evaluation: 09/10/18 Time of Evaluation: 07:20 - Subjective Subjective: dcit Objective - Vital Signs/Intake and Output Vital Signs (last 24 hours): Temp Pulse Resp BP Pulse Ox 97.7 F 74 20 121/76 97 09/10/18 15:00 09/10/18 15:00 09/10/18 15:00 09/10/18 15:00 09/10/18 15:00 Intake and Output: 09/10/18 09/11/18 18:59 06:59 Intake Total 1200 Balance 1200 - Medications Medications: Current Medications Albuterol/Ipratropium (Duoneb 3 Mg/0.5 Mg (3 Ml) Ud) 3 ml INH RQ6 [facility] Last Admin: 09/10/18 19:42 Dose: 3 ml Baclofen (Lioresal) 20 mg PO BID [facility] Last Admin: 09/10/18 17:40 Dose: 20 mg Folic Acid (Folic Acid) 1 mg PO DAILY [facility] Last Admin: 09/10/18 09:24 Dose: 1 mg Guaifenesin (Mucinex La) 600 mg PO BID [facility] Last Admin: 09/10/18 17:40 Dose: 600 mg Heparin Sodium (Porcine) (Heparin) 5,000 units SC Q12 [facility]AH Last Admin: 09/10/18 21:26 Dose: 5,000 units Vancomycin HCl 1 gm/ Sodium (Chloride) 250 mls @ 166.7 mls/hr IVPB Q12H [facility]; Protocol Last Admin: 09/10/18 19:07 Dose: 166.7 mls/hr Azithromycin 500 mg/ Sodium (Chloride) 250 mls @ 250 mls/hr IVPB DAILY@1200 SARAH; Protocol Last Admin: 09/10/18 11:00 Dose: 250 mls/hr Fluconazole (Diflucan Iv 200 Mg/100 Ml Ns) 100 mls @ 100 mls/hr IVPB 1430 SARAH; Protocol Last Admin: 09/10/18 13:44 Dose: 100 mls/hr Trimethoprim/Sulfamethoxazole (240 mg/ Dextrose) 250 mls @ 250 mls/hr IVPB Q12H SARAH; Protocol Last Admin: 09/10/18 21:26 Dose: 250 mls/hr Methylprednisolone (Solu-Medrol) 60 mg IVP Q12H [facility] Last Admin: 09/10/18 21:26 Dose: 60 mg Pneumococcal Polyvalent Vaccine (Pneumovax 23 Vaccine) 0.5 ml IM .ONCE ONE Stop: 09/11/18 10:01 Senna/Docusate Sodium (Senokot S 50 Mg-8.6 Mg) 2 tab PO HS [facility] Last Admin: 09/10/18 21:29 Dose: 2 tab Sumatriptan Succinate (Imitrex Tab) 50 mg PO Q2 PRN PRN Reason: Migraine headache Last Admin: 09/10/18 18:57 Dose: 50 mg - Labs Labs: 09/10/18 07:10 09/10/18 07:10
[2018-09-11] MEDS: Albuterol-Ipratrop 3 mg / 0.5 (3 ml) UD INH SCH ×4 (01:18→19:25)
--- NOTE | 2018-09-11 02:43 | PN ---
DATE: 09/10/2018 SUBJECTIVE: The patient is afebrile. Less short of breath. Less cough. No wheezing. No chest pain. PHYSICAL EXAMINATION: VITAL SIGNS: Blood pressure 121/76, pulse 74, respiratory rate 20, temperature 97.7. LUNGS: Bilateral scattered rales. CARDIOVASCULAR SYSTEM: S1 and S2. Regular. ABDOMEN: Soft. ASSESSMENT: 1. Interstitial lung disease. 2. Pneumonia. 3. Rheumatoid arthritis. 4. Anemia of chronic disease. PLAN: Continue antibiotics. Follow up with Pulmonary. Elvin Hidalgo MD
[2018-09-11] MEDS: Sulfamethoxazole/Trimethoprim 240 MG in Dextrose 5% In Water 250 ML IVPB SCH ×2 (07:01→18:11)
--- NOTE | 2018-09-11 07:18 | CP.PCM.PN ---
Subjective - Date & Time of Evaluation Date of Evaluation: 09/10/18 Time of Evaluation: 09:30 - Subjective Subjective: Patient seen and evaluated. Dyspnea + Physical Examination - Additional Findings Additional findings: - Constitutional Appears: Well, Non-toxic, No Acute Distress - Head Exam Head Exam: ATRAUMATIC, NORMAL INSPECTION, NORMOCEPHALIC - Eye Exam Eye Exam: EOMI, Normal appearance - ENT Exam ENT Exam: Mucous Membranes Moist - Respiratory Exam Respiratory Exam: Rales (Mild, Left Sided (Improves with cough)). absent: Clear to Auscultation Bilateral - Cardiovascular Exam Cardiovascular Exam: +S1, +S2 Additional comments: +S3 Heart Sound - GI/Abdominal Exam GI & Abdominal Exam: Soft. absent: Tenderness - Extremities Exam Extremities exam: Negative for: pedal edema - Neurological Exam Neurological exam: Alert, Oriented x3 - Psychiatric Exam Psychiatric exam: Normal Affect, Normal Mood - Skin Skin Exam: Dry, Intact, Normal Color, Warm Assessment and Plan - Assessment and Plan (Free Text) Assessment: 43 year old female with PMHx of asthma, RA, SLE, sarcoidosis, and anemia who presented to the emergency room yesterday morning with worsening shortness of br eath and cough for 1 month. Cardiology consulted for SOB. Plan: SOB Likely 2/2 to lung infection bacterial vs fungal. Likely not Cardiac Origin, but of Pulmonary Etiology will follow Objective - Vital Signs/Intake and Output Vital Signs (last 24 hours): Temp Pulse Resp BP Pulse Ox 97.8 F 67 20 127/80 96 09/11/18 00:00 09/11/18 00:00 09/11/18 00:00 09/11/18 00:00 09/11/18 00:00 Intake and Output: 09/11/18 09/11/18 06:59 18:59 Intake Total 670 Balance 670 - Medications Medications: Current Medications Albuterol/Ipratropium (Duoneb 3 Mg/0.5 Mg (3 Ml) Ud) 3 ml INH RQ6 [facility] Last Admin: 09/11/18 01:18 Dose: 3 ml Baclofen (Lioresal) 20 mg PO BID [facility] Last Admin: 09/10/18 17:40 Dose: 20 mg Folic Acid (Folic Acid) 1 mg PO DAILY [facility] Last Admin: 09/10/18 09:24 Dose: 1 mg Guaifenesin (Mucinex La) 600 mg PO BID [facility] Last Admin: 09/10/18 17:40 Dose: 600 mg Heparin Sodium (Porcine) (Heparin) 5,000 units SC Q12 [facility] Last Admin: 09/10/18 21:26 Dose: 5,000 units Vancomycin HCl 1 gm/ Sodium (Chloride) 250 mls @ 166.7 mls/hr IVPB Q12H [facility]; Protocol Last Admin: 09/10/18 19:07 Dose: 166.7 mls/hr Azithromycin 500 mg/ Sodium (Chloride) 250 mls @ 250 mls/hr IVPB DAILY@1200 [facility]; Protocol Last Admin: 09/10/18 11:00 Dose: 250 mls/hr Fluconazole (Diflucan Iv 200 Mg/100 Ml Ns) 100 mls @ 100 mls/hr IVPB 1430 [facility]; Protocol Last Admin: 09/10/18 13:44 Dose: 100 mls/hr Trimethoprim/Sulfamethoxazole (240 mg/ Dextrose) 250 mls @ 250 mls/hr IVPB Q12H [facility]; Protocol Last Admin: 09/11/18 07:01 Dose: 250 mls/hr Methylprednisolone (Solu-Medrol) 60 mg IVP Q12H [facility] Last Admin: 09/10/18 21:26 Dose: 60 mg Pneumococcal Polyvalent Vaccine (Pneumovax 23 Vaccine) 0.5 ml IM .ONCE ONE Stop: 09/11/18 10:01 Senna/Docusate Sodium (Senokot S 50 Mg-8.6 Mg) 2 tab PO HS [facility] Last Admin: 09/10/18 21:29 Dose: 2 tab Sumatriptan Succinate (Imitrex Tab) 50 mg PO Q2 PRN PRN Reason: Migraine headache Last Admin: 09/10/18 18:57 Dose: 50 mg - Labs Labs: 09/10/18 07:10 09/10/18 07:10
[2018-09-11] MEDS: MethylPREDNISolone 40 mg Vial IVP SCH ×2 (07:59→21:09)
[2018-09-11] MEDS: guaiFENesin 600 mg ER Tab PO SCH ×2 (09:17→17:19)
[2018-09-11] MEDS ORDERED: Pneumococcal 23-Valent Vaccine IM ONE (10:00)
[2018-09-11] MEDS: Azithromycin 500 MG in Sodium Chloride 0.9% 250 ML IVPB SCH (11:26)
--- NOTE | 2018-09-11 12:50 | CP.PCM.CON ---
History of Present Illness - History of Present Illness History of Present Illness: 43-year-old female originally from the [place] who presents at the [facility] emergency room complaining of cough, shortness of and generalized malaise for the past week. patient was evaluated in the emergency room and advised admission for suspected pneumonia. I have seen this patient periodically during the past 18 months. Patient was diagnosed and treated for rheumatoid arthritis with lupus overlap. Patient has been treated with a biological agent called Humira injection every 14 days. She is also been on low-dose prednisone, methotrexate and various nonsteroidals. Patient responded to treatment except for lingering recurrent pulmonary symptomology. Pulmonary changes similar to the present findings on CT scan have been present for the past year. 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 Gilmar levels were not significantly high. a working diagnosis of rheumatoid lung disease was also considered. Suggest continue present workup and treatment and consider repeat lung biopsy in order to establish a definitive diagnosis. Presently, patient has anti-CCP >250, antinuclear antibody positive with a titer of 1/640, and an antistreptolysin of greater than 1600. Review of Systems - Review of Systems Systems not reviewed;Unavailable: Other Review of Systems: cough - Constitutional Constitutional: Headache, Malaise - Respiratory Respiratory: Cough, Dyspnea - Gastrointestinal Gastrointestinal: Heartburn - Reproductive: Female Reproductive:Female: Menses Variable - Musculoskeletal Musculoskeletal: Arthralgias, Stiffness - Integumentary Integumentary: Dry Skin Past Patient History - Tetanus Immunizations Tetanus Immunization: Up to Date - Past Medical History & Family History Past Medical History?: Yes - Past Social History Smoking Status: Never Smoked Chewing Tobacco Use: No Cigar Use: No Alcohol: None Drugs: Denies Home Situation {Lives}: With Family - PULMONARY Hx Asthma: Yes - ENDOCRINE/METABOLIC Hx Endocrine Disorders: Yes Hx Systemic Lupus Erythematosus: Yes - HEMATOLOGICAL/ONCOLOGICAL Hx Anemia: Yes - MUSCULOSKELETAL/RHEUMATOLOGICAL Hx Arthritis: Yes Hx Back Pain: Yes Hx Falls: No Hx Rheumatoid Arthritis: Yes - GENITOURINARY/GYNECOLOGICAL : 2 Para: 2 - PSYCHIATRIC Hx Substance Use: No - SURGICAL HISTORY Hx Cholecystectomy: Yes - ANESTHESIA Hx Anesthesia: Yes Hx Anesthesia Reactions: No Meds Allergies/Adverse Reactions: Allergies Allergy/AdvReac Type Severity Reaction Status Date / Time No Known Allergies Allergy Verified 12/26/17 12:44 - Medications Medications: Current Medications Albuterol/Ipratropium (Duoneb 3 Mg/0.5 Mg (3 Ml) Ud) 3 ml INH RQ6 [facility] Last Admin: 09/11/18 08:40 Dose: 3 ml Baclofen (Lioresal) 20 mg PO BID [facility] Last Admin: 09/11/18 09:21 Dose: 20 mg Folic Acid (Folic Acid) 1 mg PO DAILY [facility] Last Admin: 09/11/18 09:17 Dose: 1 mg Guaifenesin (Mucinex La) 600 mg PO BID [facility] Last Admin: 09/11/18 09:17 Dose: 600 mg Vancomycin HCl 1 gm/ Sodium (Chloride) 250 mls @ 166.7 mls/hr IVPB Q12H [facility]; Protocol Last Admin: 09/11/18 07:28 Dose: 166.7 mls/hr Azithromycin 500 mg/ Sodium (Chloride) 250 mls @ 250 mls/hr IVPB DAILY@1200 [facility]; Protocol Last Admin: 09/11/18 11:26 Dose: 250 mls/hr Fluconazole (Diflucan Iv 200 Mg/100 Ml Ns) 100 mls @ 100 mls/hr IVPB 1430 [facility]; Protocol Last Admin: 09/10/18 13:44 Dose: 100 mls/hr Trimethoprim/Sulfamethoxazole (240 mg/ Dextrose) 250 mls @ 250 mls/hr IVPB Q12H [facility]; Protocol Last Admin: 09/11/18 07:01 Dose: 250 mls/hr Methylprednisolone (Solu-Medrol) 60 mg IVP Q12H [facility] Last Admin: 09/11/18 07:59 Dose: 60 mg Senna/Docusate Sodium (Senokot S 50 Mg-8.6 Mg) 2 tab PO HS [facility] Last Admin: 09/10/18 21:29 Dose: 2 tab Sumatriptan Succinate (Imitrex Tab) 50 mg PO Q2 PRN PRN Reason: Migraine headache Last Admin: 09/10/18 18:57 Dose: 50 mg Physical Exam - Constitutional Appears: Chronically Ill - Head Exam Head Exam: NORMOCEPHALIC - Eye Exam Eye Exam: Normal appearance - ENT Exam ENT Exam: Normal Exam - Neck Exam Neck exam: Positive for: Normal Inspection - Respiratory Exam Respiratory Exam: Wheezes - Cardiovascular Exam Cardiovascular Exam: REGULAR RHYTHM - GI/Abdominal Exam GI & Abdominal Exam: Normal Bowel Sounds - Rectal Exam Rectal Exam: Deferred - Extremities Exam Extremities exam: Positive for: tenderness - Back Exam Back exam: CVA tenderness (L) - Neurological Exam Neurological exam: Oriented x3 - Psychiatric Exam Psychiatric exam: Depressed - Skin Skin Exam: Dry Results - Vital Signs Recent Vital Signs: Last Vital Signs Temp 97.8 F 09/11/18 07:23 Pulse 75 09/11/18 07:23 Resp 20 09/11/18 07:23 BP 112/72 09/11/18 07:23 Pulse Ox 96 09/11/18 07:23 - Labs Result Diagrams: 09/10/18 07:10 09/10/18 07:10 Labs: Laboratory Results - last 24 hr 09/09/18 09/11/18 09/11/18 06:44 07:08 07:08 Lactate Dehydrogenase 960 H BARTOLO Screen Positive H BARTOLO Titer 1:640 H BARTOLO Pattern Homogeneous H SS-A Antibody <1.0 SS-B Ab Interp Negative SS-B Antibody <1.0 [employer] MAINTENA[employer]LECT[employer]ICIAN Antibody <1.0 [employer] MAINTENA[employer] ELECT[employer]ICIAN Antibody Interp Negative Double Strand DNA Ab 1 HIV 1&2 Antibody Screen Negative Assessment & Plan (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
[2018-09-11] MEDS: Fluconazole IV 200mg/100 ml NS 100 ML IVPB SCH (13:59)
--- NOTE | 2018-09-11 14:18 | CP.PCM.PN ---
Subjective - Date & Time of Evaluation Date of Evaluation: 09/11/18 Time of Evaluation: 14:00 - Subjective Subjective: Patient seen and examined And respiratory isolation Seen by infectious disease Patient states cough is improving Denies shortness of breath at rest Afebrile Very high BARTOLO Objective - Vital Signs/Intake and Output Vital Signs (last 24 hours): Temp Pulse Resp BP Pulse Ox 97.8 F 75 20 112/72 96 09/11/18 07:23 09/11/18 07:23 09/11/18 07:23 09/11/18 07:23 09/11/18 07:23 Intake and Output: 09/11/18 09/11/18 06:59 18:59 Intake Total 670 Balance 670 - Medications Medications: Current Medications Albuterol/Ipratropium (Duoneb 3 Mg/0.5 Mg (3 Ml) Ud) 3 ml INH RQ6 [facility] Last Admin: 09/11/18 14:00 Dose: 3 ml Baclofen (Lioresal) 20 mg PO BID [facility] Last Admin: 09/11/18 09:21 Dose: 20 mg Folic Acid (Folic Acid) 1 mg PO DAILY [facility] Last Admin: 09/11/18 09:17 Dose: 1 mg Guaifenesin (Mucinex La) 600 mg PO BID [facility] Last Admin: 09/11/18 09:17 Dose: 600 mg Vancomycin HCl 1 gm/ Sodium (Chloride) 250 mls @ 166.7 mls/hr IVPB Q12H [facility]; Protocol Last Admin: 09/11/18 07:28 Dose: 166.7 mls/hr Azithromycin 500 mg/ Sodium (Chloride) 250 mls @ 250 mls/hr IVPB DAILY@1200 [facility]; Protocol Last Admin: 09/11/18 11:26 Dose: 250 mls/hr Fluconazole (Diflucan Iv 200 Mg/100 Ml Ns) 100 mls @ 100 mls/hr IVPB 1430 [facility]; Protocol Last Admin: 09/11/18 13:59 Dose: 100 mls/hr Trimethoprim/Sulfamethoxazole (240 mg/ Dextrose) 250 mls @ 250 mls/hr IVPB Q12H [facility]; Protocol Last Admin: 09/11/18 07:01 Dose: 250 mls/hr Methylprednisolone (Solu-Medrol) 60 mg IVP Q12H [facility] Last Admin: 09/11/18 07:59 Dose: 60 mg Senna/Docusate Sodium (Senokot S 50 Mg-8.6 Mg) 2 tab PO HS [facility] Last Admin: 09/10/18 21:29 Dose: 2 tab Sumatriptan Succinate (Imitrex Tab) 50 mg PO Q2 PRN PRN Reason: Migraine headache Last Admin: 09/10/18 18:57 Dose: 50 mg - Labs Labs: 09/10/18 07:10 09/10/18 07:10 - Head Exam Head Exam: ATRAUMATIC, NORMOCEPHALIC - ENT Exam ENT Exam: Mucous Membranes Moist - Neck Exam Neck Exam: Normal Inspection - Respiratory Exam Respiratory Exam: Rales - Cardiovascular Exam Cardiovascular Exam: REGULAR RHYTHM - GI/Abdominal Exam GI & Abdominal Exam: Soft, Normal Bowel Sounds Assessment and Plan (1) Respiratory distress Assessment & Plan: Patient states cough and breathing improving Follow-up chest x-ray Continue antifungal, Bactrim and vancomycin On IV steroids Follow-up galactomannan antigen Bronchoscopy biopsy if no improvement Status: Acute (2) Rheumatoid aortitis Status: Acute (3) Systemic lupus Status: Acute
--- NOTE | 2018-09-11 15:52 | RAD ---
Chest x-ray single frontal view HISTORY: Chest pain. COMPARISON: 09/07/2018 Findings: Persistent patchy bilateral nodular infiltrates again noted in both lungs most prominent in the right hilar and infrahilar region as well as the left lung base. Overall not significantly changed since the prior study. Top normal heart size. Impression: No significant interval change.
[2018-09-11] MEDS: Docusate-Senna 50 mg-8.6 mg Tab PO SCH (21:09)
--- NOTE | 2018-09-11 21:43 | CP.PCM.PN ---
Subjective - Date & Time of Evaluation Date of Evaluation: 09/11/18 Time of Evaluation: 14:20 - Subjective Subjective: dictated Objective - Vital Signs/Intake and Output Vital Signs (last 24 hours): Temp Pulse Resp BP Pulse Ox 97.6 F 75 20 128/83 97 09/11/18 15:00 09/11/18 15:00 09/11/18 15:00 09/11/18 15:00 09/11/18 15:00 - Medications Medications: Current Medications Albuterol/Ipratropium (Duoneb 3 Mg/0.5 Mg (3 Ml) Ud) 3 ml INH RQ6 [facility] Last Admin: 09/11/18 19:25 Dose: 3 ml Baclofen (Lioresal) 20 mg PO BID [facility] Last Admin: 09/11/18 17:19 Dose: 20 mg Folic Acid (Folic Acid) 1 mg PO DAILY [facility] Last Admin: 09/11/18 09:17 Dose: 1 mg Guaifenesin (Mucinex La) 600 mg PO BID [facility] Last Admin: 09/11/18 17:19 Dose: 600 mg Vancomycin HCl 1 gm/ Sodium (Chloride) 250 mls @ 166.7 mls/hr IVPB Q12H [facility]; Protocol Last Admin: 09/11/18 19:34 Dose: 166.7 mls/hr Azithromycin 500 mg/ Sodium (Chloride) 250 mls @ 250 mls/hr IVPB DAILY@1200 [facility]; Protocol Last Admin: 09/11/18 11:26 Dose: 250 mls/hr Fluconazole (Diflucan Iv 200 Mg/100 Ml Ns) 100 mls @ 100 mls/hr IVPB 1430 [facility]; Protocol Last Admin: 09/11/18 13:59 Dose: 100 mls/hr Trimethoprim/Sulfamethoxazole (240 mg/ Dextrose) 250 mls @ 250 mls/hr IVPB Q12H [facility]; Protocol Last Admin: 09/11/18 18:11 Dose: 250 mls/hr Methylprednisolone (Solu-Medrol) 60 mg IVP Q12H [facility] Last Admin: 09/11/18 21:09 Dose: 60 mg Senna/Docusate Sodium (Senokot S 50 Mg-8.6 Mg) 2 tab PO HS [facility] Last Admin: 09/11/18 21:09 Dose: 2 tab Sumatriptan Succinate (Imitrex Tab) 50 mg PO Q2 PRN PRN Reason: Migraine headache Last Admin: 09/10/18 18:57 Dose: 50 mg - Labs Labs: 09/10/18 07:10 09/10/18 07:10
--- NOTE | 2018-09-11 22:40 | CP.PCM.PN ---
Subjective - Date & Time of Evaluation Date of Evaluation: 09/11/18 Time of Evaluation: 22:40 - Subjective Subjective: AFEBRILE, +VE COUGH. +VE SOB ON EXERTION PRESENTLY ON [employer] PRECAUTIONS. ABNORMAL CT CHEST,. PT.ON BIOLOGICAL AGENT HUMIRA X PAST 5YRS PER / EVERY 14 DAYS. BEING F/U BY HER MECHANICAL REPAIR WORKER DR FROST TB W/U AND OTHER OI TO BE R/O. LABS REVIEWED; +VE BARTOLO 1:640 TITRE. CCP IGG >250 +VE STREPTOLYSIN TITRE Objective - Vital Signs/Intake and Output Vital Signs (last 24 hours): Temp Pulse Resp BP Pulse Ox 97.6 F 75 20 128/83 97 09/11/18 15:00 09/11/18 15:00 09/11/18 15:00 09/11/18 15:00 09/11/18 15:00 - Medications Medications: Current Medications Albuterol/Ipratropium (Duoneb 3 Mg/0.5 Mg (3 Ml) Ud) 3 ml INH RQ6 [facility] Last Admin: 09/11/18 19:25 Dose: 3 ml Baclofen (Lioresal) 20 mg PO BID [facility] Last Admin: 09/11/18 17:19 Dose: 20 mg Folic Acid (Folic Acid) 1 mg PO DAILY [facility] Last Admin: 09/11/18 09:17 Dose: 1 mg Guaifenesin (Mucinex La) 600 mg PO BID [facility] Last Admin: 09/11/18 17:19 Dose: 600 mg Vancomycin HCl 1 gm/ Sodium (Chloride) 250 mls @ 166.7 mls/hr IVPB Q12H [facility]; Protocol Last Admin: 09/11/18 19:34 Dose: 166.7 mls/hr Azithromycin 500 mg/ Sodium (Chloride) 250 mls @ 250 mls/hr IVPB DAILY@1200 [facility]; Protocol Last Admin: 09/11/18 11:26 Dose: 250 mls/hr Fluconazole (Diflucan Iv 200 Mg/100 Ml Ns) 100 mls @ 100 mls/hr IVPB 1430 [facility]; Protocol Last Admin: 09/11/18 13:59 Dose: 100 mls/hr Trimethoprim/Sulfamethoxazole (240 mg/ Dextrose) 250 mls @ 250 mls/hr IVPB Q12H [facility]; Protocol Last Admin: 09/11/18 18:11 Dose: 250 mls/hr Methylprednisolone (Solu-Medrol) 60 mg IVP Q12H [facility] Last Admin: 09/11/18 21:09 Dose: 60 mg Senna/Docusate Sodium (Senokot S 50 Mg-8.6 Mg) 2 tab PO HS [facility] Last Admin: 09/11/18 21:09 Dose: 2 tab Sumatriptan Succinate (Imitrex Tab) 50 mg PO Q2 PRN PRN Reason: Migraine headache Last Admin: 09/10/18 18:57 Dose: 50 mg - Labs Labs: 09/10/18 07:10 09/10/18 07:10 - Constitutional Appears: No Acute Distress - Head Exam Head Exam: NORMAL INSPECTION - Eye Exam Eye Exam: EOMI, PERRL - ENT Exam ENT Exam: Normal Oropharynx - Respiratory Exam Respiratory Exam: Rhonchi (B/L ), NORMAL BREATHING PATTERN - Cardiovascular Exam Cardiovascular Exam: REGULAR RHYTHM, +S1, +S2 - GI/Abdominal Exam GI & Abdominal Exam: Soft, Normal Bowel Sounds. absent: Organomegaly - Extremities Exam Extremities Exam: Normal Capillary Refill. absent: Calf Tenderness, Pedal Edema - Neurological Exam Neurological Exam: Alert, Awake, CN II-XII Intact, Normal Gait, Oriented x3, Reflexes Normal - Psychiatric Exam Psychiatric exam: Normal Mood - Skin Skin Exam: Normal Color, Warm Assessment and Plan (1) Respiratory distress Status: Acute (2) 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 (3) Sarcoidosis of lung Assessment & Plan: HX OF BX LUNG IN 2018 ? +VE SARCOIDOSIS. PER CHART. Status: Acute (4) Systemic lupus Status: Acute - Assessment and Plan (Free Text) Plan: PLAN Continue IV Bactrim, vancomycin,ZITHROMAX AND ANTIFUNGALS. On IV SOLUMEDROL 60MG IV PB [id number] PER PULMONARY Follow-up QUANTIFERON GOLD TB TEST. F/U SPUTUM X3 FOR AFB -3 DAYS MORNING SPECIMEN F/U galactomannan antigen F/U SPUTUM GRAM STAIN AND CULTURE, FUNGAL SMEAR AND CULTURE Bronchoscopy biopsy if no improvement as per pulmonary
--- NOTE | 2018-09-11 23:35 | CP.PCM.PN ---
Subjective - Date & Time of Evaluation Date of Evaluation: 09/11/18 Time of Evaluation: 08:40 - Subjective Subjective: Patient seen and evaluated. Imroved breathing. No chest pain Physical Examination - Additional Findings Additional findings: - Constitutional Appears: Well, Non-toxic, No Acute Distress - Head Exam Head Exam: ATRAUMATIC, NORMAL INSPECTION, NORMOCEPHALIC - Eye Exam Eye Exam: EOMI, Normal appearance - ENT Exam ENT Exam: Mucous Membranes Moist - Respiratory Exam Respiratory Exam: Rales (Mild, Left Sided (Improves with cough)). absent: Clear to Auscultation Bilateral - Cardiovascular Exam Cardiovascular Exam: +S1, +S2 Additional comments: +S3 Heart Sound - GI/Abdominal Exam GI & Abdominal Exam: Soft. absent: Tenderness - Extremities Exam Extremities exam: Negative for: pedal edema - Neurological Exam Neurological exam: Alert, Oriented x3 - Psychiatric Exam Psychiatric exam: Normal Affect, Normal Mood - Skin Skin Exam: Dry, Intact, Normal Color, Warm Assessment and Plan - Assessment and Plan (Free Text) Assessment: 43 year old female with PMHx of asthma, RA, SLE, sarcoidosis, and anemia who presented to the emergency room yesterday morning with worsening shortness of breath and cough for 1 month. Cardiology consulted for SOB. Plan: SOB Likely 2/2 to lung infection bacterial vs fungal. will follow Objective - Vital Signs/Intake and Output Vital Signs (last 24 hours): Temp Pulse Resp BP Pulse Ox 97.6 F 75 20 128/83 97 09/11/18 15:00 09/11/18 15:00 09/11/18 15:00 09/11/18 15:00 09/11/18 15:00 - Medications Medications: Current Medications Albuterol/Ipratropium (Duoneb 3 Mg/0.5 Mg (3 Ml) Ud) 3 ml INH RQ6 [facility] Last Admin: 09/11/18 19:25 Dose: 3 ml Baclofen (Lioresal) 20 mg PO BID [facility] Last Admin: 09/11/18 17:19 Dose: 20 mg Folic Acid (Folic Acid) 1 mg PO DAILY [facility] Last Admin: 09/11/18 09:17 Dose: 1 mg Guaifenesin (Mucinex La) 600 mg PO BID [facility] Last Admin: 09/11/18 17:19 Dose: 600 mg Vancomycin HCl 1 gm/ Sodium (Chloride) 250 mls @ 166.7 mls/hr IVPB Q12H [facility]; Protocol Last Admin: 09/11/18 19:34 Dose: 166.7 mls/hr Azithromycin 500 mg/ Sodium (Chloride) 250 mls @ 250 mls/hr IVPB DAILY@1200 [facility]; Protocol Last Admin: 09/11/18 11:26 Dose: 250 mls/hr Fluconazole (Diflucan Iv 200 Mg/100 Ml Ns) 100 mls @ 100 mls/hr IVPB 1430 [facility]; Protocol Last Admin: 09/11/18 13:59 Dose: 100 mls/hr Trimethoprim/Sulfamethoxazole (240 mg/ Dextrose) 250 mls @ 250 mls/hr IVPB Q12H [facility]; Protocol Last Admin: 09/11/18 18:11 Dose: 250 mls/hr Methylprednisolone (Solu-Medrol) 60 mg IVP Q12H [facility] Last Admin: 09/11/18 21:09 Dose: 60 mg Senna/Docusate Sodium (Senokot S 50 Mg-8.6 Mg) 2 tab PO HS [facility] Last Admin: 09/11/18 21:09 Dose: 2 tab Sumatriptan Succinate (Imitrex Tab) 50 mg PO Q2 PRN PRN Reason: Migraine headache Last Admin: 09/10/18 18:57 Dose: 50 mg - Labs Labs: 09/10/18 07:10 09/10/18 07:10
--- NOTE | 2018-09-12 00:50 | PN ---
DATE: 09/11/2018 SUBJECTIVE: The patient has high LDH blood level and she is on intravenous Bactrim for possibility of PCP pneumonia. She is afebrile and not in any respiratory distress. PHYSICAL EXAMINATION: VITAL SIGNS: Blood pressure 128/83, pulse 75, respiratory rate 20, temperature 97.6. LUNGS: Bilateral scattered rales all over the lung jimenez. CARDIOVASCULAR SYSTEM: S1 and S2, regular. ABDOMEN: Soft, nontender. Bowel sounds are positive. ASSESSMENT: 1. Pneumonia, rule out pneumocystis carinii pneumonia. 2. Rheumatoid arthritis. 3. Migraine. PLAN: Continue Bactrim. Monitor the patient. Elvin Hidalgo MD
[2018-09-12] MEDS: Albuterol-Ipratrop 3 mg / 0.5 (3 ml) UD INH SCH ×4 (01:52→19:37)
[2018-09-12] MEDS: Sulfamethoxazole/Trimethoprim 240 MG in Dextrose 5% In Water 250 ML IVPB SCH ×2 (06:00→19:16)
[2018-09-12] MEDS: MethylPREDNISolone 40 mg Vial IVP SCH ×2 (08:33→21:03)
[2018-09-12] MEDS: guaiFENesin 600 mg ER Tab PO SCH ×2 (09:34→17:49)
[2018-09-12] MEDS: Azithromycin 500 MG in Sodium Chloride 0.9% 250 ML IVPB SCH (12:36)
[2018-09-12] MEDS ORDERED: Ciprofloxacin 400mg/200ml D5W 400 MG/200 ML BAG IVPB SCH (14:30)
[2018-09-12] MEDS: Fluconazole IV 200mg/100 ml NS 100 ML IVPB SCH (14:45)
--- NOTE | 2018-09-12 14:49 | CON ---
DATE: 09/10/2018 INFECTIOUS DISEASE CONSULTATION REQUESTED BY: Elvin Hidalgo MD and Sergo Morrell MD REASON FOR CONSULTATION: Bilateral pneumonia, history of sarcoidosis, asthma, rheumatoid arthritis, SLE, and anemia. HISTORY OF PRESENT ILLNESS: A 43-year-old female with significant multiple medical problems including asthma, sarcoidosis, rheumatoid arthritis, SLE, and anemia who presented to the emergency room on 09/07/2018, because of worsening shortness of breath and cough for about a month. As per history, the patient states she has always had mild shortness of breath and slight cough due to her asthma and sarcoidosis, but one month ago, her symptoms had gotten much worse. The patient states she felt like she needed oxygen. She went to Dr. Morrell, supply chain specialist last week who told her to get chest x-ray. The chest x-ray report was sent to Dr. Morrell and her primary care doctor, Dr. Byrnes. Dr. Bynres told the patient to come to the ER after viewing the report. Infectious Disease consultation requested today by Dr. Morrell for bilateral pneumonia. Also, the patient has been complaining of cough which is dry in nature as reported. Also from the history I learned that the patient has been on Humira by her well tester for her rheumatoid arthritis and sarcoidosis. She has been getting injections as per the report. The patient denies any previous history of TB or exposure to TB. Denies any recent travel and denies any recent sick contacts. PAST MEDICAL HISTORY: As above. Asthma, sarcoidosis, SLE, rheumatoid arthritis, anemia. SURGICAL HISTORY: History of cholecystectomy and C-sections x2. ALLERGIES: NONE KNOWN. SOCIAL HISTORY: Denies smoking or alcohol use. Denies any recreational drug use. The patient states she has not worked for the past year. FAMILY HISTORY: Consistent with hypertension and diabetes mellitus. REVIEW OF SYSTEMS: RESPIRATORY: Complains of shortness of breath on exertion and sometimes at rest. Cough mainly dry. Denies any history of hemoptysis or chest pain or pleuritic pain. CARDIOVASCULAR: Denies any chest pain, palpitations. GASTROINTESTINAL: Unremarkable. No abdominal pain, nausea, vomiting, or diarrhea. No change in habits. GENITOURINARY: Unremarkable. No urinary symptoms. No dysuria. No hematuria. CENTRAL NERVOUS SYSTEM: Denies any headaches or seizure disorder. Rest of the review of systems is unremarkable. MEDICATIONS: As per chart reviewed. The patient presently on ceftriaxone 1 g once a day daily started on 09/08/2018, Zithromax 500 mg once a day daily started on 09/08/2018, vancomycin 1 g every 12 hourly started on 09/08/2018, and Diflucan 200 mg IV OD once a day daily started on 09/09/2018. The patient also getting Solu-Medrol 60 mg IV every 12 hourly. The patient on heparin subcutaneous 5000 units every 12 hourly. The patient on folic acid 1 mg p.o. daily and Sporanox 100 mg daily as per protocols noted. PHYSICAL EXAMINATION: GENERAL: The patient is awake, alert, not in any acute distress. VITAL SIGNS: Afebrile. Blood pressure 120/58, respirations 20, pulse of 91, pulse ox was 99% on room air. HEENT: Pupils equal and reactive to light and accommodation. Extraocular movements full. Fundus negative. Sclerae nonicteric. Conjunctivae normal. JVP not elevated. No bruit. Mouth, no thrush noted. NECK: No lymphadenopathy noted. LUNGS: Bilateral rhonchi. CARDIOVASCULAR SYSTEM: S1, S2. No murmur or gallop. ABDOMEN: Soft, nontender. No masses palpable. No organomegaly appreciated. EXTREMITIES: No cyanosis, clubbing or edema. CENTRAL NERVOUS SYSTEM: No gross deficits. Moves all extremities. Reflexes are equal and symmetrical. SKIN: Dry, intact, normal color. No rashes noted. LABORATORY DATA: WBC is 9.7, H and H of 10.8 and 31.2, platelets 443. Creatinine is 0.8, BUN of 26. Liver function test, AST 48, ALT normal, alkaline phosphatase 61. The patient's sed rate is 128. CRP is elevated 23.6, ASO titer noted to be more than 1600 international units per mL. Chest x-ray on admission 09/07/2018, showed patchy bilateral nodular infiltrates with right upper lobe infiltrate and bilateral lower lobe infiltrate. CT chest as reported 09/07/2018, atypical pneumonia with ground glass opacities, concentrated raindrop opacity, suspicious for some opportunistic infection. Questionable paracoccidioidomycosis as suggested by Radiology. CT head done today shows no intracranial hemorrhage, no sinusitis, no hydrocephalus. IMPRESSION: 1. Bilateral pneumonia with nodular infiltrates. The patient on monoclonal antibodies, tumor necrosis factor, Humira as per Rheumatology, suspicious for immunosuppression, and possible serious infections. We will have to rule out atypical pneumonia. Questionable reactivation of tuberculosis, fungus, pneumocystis pneumonia, histoplasmosis, Mycobacterium avium complex, viral etiology. 2. History of rheumatoid arthritis and positive systemic lupus erythematosus. 3. History of sarcoidosis as reported biopsy proven last year in 11/2017 as per review of the chart. 4. History of bronchial asthma. PLAN: Suggest pancultures. Consider doing QuantiFERON-gold tuberculosis test and if positive, to be followed by sputum for acid fast bacillus x3. Histoplasma antigen. Galactomannan test for fungus and histoplasmosis. Discontinue intravenous Rocephin for now. We will initiate intravenous Bactrim 240 mg intravenous piggyback every 12 hourly in view of hypoxemia noted on the blood gas with oxygen saturation of 88%. Continue Zithromax 500 mg once a day daily. The patient presently on itraconazole as noted 100 mg p.o. daily. The patient also getting vancomycin 1 g every 12 hourly and Solu-Medrol 60 mg every 12 hourly as per Pulmonary. We will follow up test and make adjustments of antibiotics as necessary. If failure to get sputums because of dry cough, will need bronchoscopy and biopsy to rule out etiology and definitive diagnosis of pneumonia. Case discussed with the resident as well as the staff. We will follow along with you. Thank you very much. Sarai Holley MD
[2018-09-12] MEDS: Ciprofloxacin 400mg/200ml D5W 400 MG/200 ML BAG IVPB SCH (15:45)
[2018-09-12] MEDS: Docusate-Senna 50 mg-8.6 mg Tab PO SCH (21:02)
--- NOTE | 2018-09-12 21:36 | CP.PCM.PN ---
Subjective - Date & Time of Evaluation Date of Evaluation: 09/12/18 Time of Evaluation: 16:25 - Subjective Subjective: patient is alert and responsive. She still has cough and chest congestion. Quanteferon reported as intermediate. Will repeat exam. We need a positive or negative. Sedimentation rate 120, hematocrit 31 and abnormal cells on differential. Suggest hematology consults and possible bone marrow. Objective - Vital Signs/Intake and Output Vital Signs (last 24 hours): Temp Pulse Resp BP Pulse Ox 97.6 F 79 20 113/72 98 09/12/18 15:49 09/12/18 15:49 09/12/18 15:49 09/12/18 15:49 09/12/18 15:49 Intake and Output: 09/12/18 09/13/18 18:59 06:59 Intake Total 750 Balance 750 - Medications Medications: Current Medications Albuterol/Ipratropium (Duoneb 3 Mg/0.5 Mg (3 Ml) Ud) 3 ml INH RQ6 SARAH Last Admin: 09/12/18 19:37 Dose: 3 ml Baclofen (Lioresal) 20 mg PO BID SRAAH Last Admin: 09/12/18 17:49 Dose: 20 mg Folic Acid (Folic Acid) 1 mg PO DAILY SARAH Last Admin: 09/12/18 09:33 Dose: 1 mg Guaifenesin (Mucinex La) 600 mg PO BID SARAH Last Admin: 09/12/18 17:49 Dose: 600 mg Hydroxychloroquine Sulfate (Plaquenil) 200 mg PO BID SARAH Trimethoprim/Sulfamethoxazole (240 mg/ Dextrose) 250 mls @ 250 mls/hr IVPB Q12H SARAH; Protocol Last Admin: 09/12/18 19:16 Dose: 250 mls/hr Fluconazole (Diflucan Iv 200 Mg/100 Ml Ns) 100 mls @ 100 mls/hr IVPB 1500 SARAH; Protocol Last Admin: 09/12/18 14:45 Dose: 100 mls/hr Ciprofloxacin (Cipro 400mg/200ml Dsw) 400 mg in 200 mls @ 133 mls/hr IVPB Q12H SARAH; Protocol Last Admin: 09/12/18 15:45 Dose: 133 mls/hr Methylprednisolone (Solu-Medrol) 60 mg IVP Q12H [facility]AH Last Admin: 09/12/18 21:03 Dose: 60 mg Senna/Docusate Sodium (Senokot S 50 Mg-8.6 Mg) 2 tab PO HS SARAH Last Admin: 09/12/18 21:02 Dose: 2 tab Sumatriptan Succinate (Imitrex Tab) 100 mg PO DAILY PRN - Labs Labs: 09/10/18 07:10 09/10/18 07:10 - Constitutional Appears: No Acute Distress - Head Exam Head Exam: NORMOCEPHALIC - Eye Exam Eye Exam: Normal appearance Pupil Exam: NORMAL ACCOMODATION - ENT Exam ENT Exam: Mucous Membranes Dry - Neck Exam Neck Exam: Normal Inspection - Respiratory Exam Respiratory Exam: Wheezes - Cardiovascular Exam Cardiovascular Exam: REGULAR RHYTHM - GI/Abdominal Exam GI & Abdominal Exam: Normal Bowel Sounds - Rectal Exam Rectal Exam: Deferred - Extremities Exam Extremities Exam: Tenderness - Back Exam Back Exam: vertebral tenderness - Neurological Exam Neurological Exam: Oriented x3 - Psychiatric Exam Psychiatric exam: Anxious - Skin Skin Exam: Dry Assessment and Plan (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
--- NOTE | 2018-09-12 22:27 | CP.PCM.PN ---
Subjective - Date & Time of Evaluation Date of Evaluation: 09/12/18 Time of Evaluation: 12:00 - Subjective Subjective: dict Objective - Vital Signs/Intake and Output Vital Signs (last 24 hours): Temp Pulse Resp BP Pulse Ox 97.6 F 79 20 113/72 98 09/12/18 15:49 09/12/18 15:49 09/12/18 15:49 09/12/18 15:49 09/12/18 15:49 Intake and Output: 09/12/18 09/13/18 18:59 06:59 Intake Total 750 Balance 750 - Medications Medications: Current Medications Albuterol/Ipratropium (Duoneb 3 Mg/0.5 Mg (3 Ml) Ud) 3 ml INH RQ6 SARAH Last Admin: 09/12/18 19:37 Dose: 3 ml Baclofen (Lioresal) 20 mg PO BID SARAH Last Admin: 09/12/18 17:49 Dose: 20 mg Folic Acid (Folic Acid) 1 mg PO DAILY SARAH Last Admin: 09/12/18 09:33 Dose: 1 mg Guaifenesin (Mucinex La) 600 mg PO BID SARAH Last Admin: 09/12/18 17:49 Dose: 600 mg Hydroxychloroquine Sulfate (Plaquenil) 200 mg PO BID SARAH Last Admin: 09/12/18 22:20 Dose: 200 mg Trimethoprim/Sulfamethoxazole (240 mg/ Dextrose) 250 mls @ 250 mls/hr IVPB Q12H SARAH; Protocol Last Admin: 09/12/18 19:16 Dose: 250 mls/hr Fluconazole (Diflucan Iv 200 Mg/100 Ml Ns) 100 mls @ 100 mls/hr IVPB 1500 SARAH; Protocol Last Admin: 09/12/18 14:45 Dose: 100 mls/hr Ciprofloxacin (Cipro 400mg/200ml Dsw) 400 mg in 200 mls @ 133 mls/hr IVPB Q12H SARAH; Protocol Last Admin: 09/12/18 15:45 Dose: 133 mls/hr Methylprednisolone (Solu-Medrol) 60 mg IVP Q12H SARAH Last Admin: 09/12/18 21:03 Dose: 60 mg Senna/Docusate Sodium (Senokot S 50 Mg-8.6 Mg) 2 tab PO HS SARAH Last Admin: 09/12/18 21:02 Dose: 2 tab Sumatriptan Succinate (Imitrex Tab) 100 mg PO DAILY PRN - Labs Labs: 09/10/18 07:10 09/10/18 07:10
--- NOTE | 2018-09-12 22:46 | CP.PCM.PN ---
Subjective - Date & Time of Evaluation Date of Evaluation: 09/12/18 Time of Evaluation: 08:30 - Subjective Subjective: Patient seen and evaluated No cardiac events noted Objective - Vital Signs/Intake and Output Vital Signs (last 24 hours): Temp Pulse Resp BP Pulse Ox 97.6 F 79 20 113/72 98 09/12/18 15:49 09/12/18 15:49 09/12/18 15:49 09/12/18 15:49 09/12/18 15:49 Intake and Output: 09/12/18 09/13/18 18:59 06:59 Intake Total 750 Balance 750 - Medications Medications: Current Medications Albuterol/Ipratropium (Duoneb 3 Mg/0.5 Mg (3 Ml) Ud) 3 ml INH RQ6 SARAH Last Admin: 09/12/18 19:37 Dose: 3 ml Baclofen (Lioresal) 20 mg PO BID SARAH Last Admin: 09/12/18 17:49 Dose: 20 mg Folic Acid (Folic Acid) 1 mg PO DAILY [facility] Last Admin: 09/12/18 09:33 Dose: 1 mg Guaifenesin (Mucinex La) 600 mg PO BID SARAH Last Admin: 09/12/18 17:49 Dose: 600 mg Hydroxychloroquine Sulfate (Plaquenil) 200 mg PO BID SARAH Last Admin: 09/12/18 22:20 Dose: 200 mg Trimethoprim/Sulfamethoxazole (240 mg/ Dextrose) 250 mls @ 250 mls/hr IVPB Q12H SARAH; Protocol Last Admin: 09/12/18 19:16 Dose: 250 mls/hr Fluconazole (Diflucan Iv 200 Mg/100 Ml Ns) 100 mls @ 100 mls/hr IVPB 1500 SARAH; Protocol Last Admin: 09/12/18 14:45 Dose: 100 mls/hr Ciprofloxacin (Cipro 400mg/200ml Dsw) 400 mg in 200 mls @ 133 mls/hr IVPB Q12H SARAH; Protocol Last Admin: 09/12/18 15:45 Dose: 133 mls/hr Methylprednisolone (Solu-Medrol) 60 mg IVP Q12H [facility]AH Last Admin: 09/12/18 21:03 Dose: 60 mg Senna/Docusate Sodium (Senokot S 50 Mg-8.6 Mg) 2 tab PO HS SARAH Last Admin: 09/12/18 21:02 Dose: 2 tab Sumatriptan Succinate (Imitrex Tab) 100 mg PO DAILY PRN - Labs Labs: 09/10/18 07:10 09/10/18 07:10
--- NOTE | 2018-09-13 02:18 | PN ---
DATE: 09/12/2018 SUBJECTIVE: The patient is afebrile. Less short of breath. Less hypoxic. Less tachycardic. PHYSICAL EXAMINATION: VITAL SIGNS: Blood pressure 113/72, pulse 79, respiratory rate 20, temperature 97.6. LUNGS: Bilateral fine crackles all over the lung jimenez. Decreased air entry. CARDIOVASCULAR SYSTEM: S1, S2, regular. ABDOMEN: Soft. ASSESSMENT: 1. Pneumonia. 2. Rheumatoid arthritis. PLAN: Continue IV Bactrim. Infectious Disease followup. Monitor the patient. Elvin Hidalgo MD
[2018-09-13] MEDS: Albuterol-Ipratrop 3 mg / 0.5 (3 ml) UD INH SCH ×5 (02:30→19:26)
[2018-09-13] MEDS: Ciprofloxacin 400mg/200ml D5W 400 MG/200 ML BAG IVPB SCH ×2 (03:11→16:38)
[2018-09-13] MEDS: Sulfamethoxazole/Trimethoprim 240 MG in Dextrose 5% In Water 250 ML IVPB SCH ×2 (06:03→19:02)
--- NOTE | 2018-09-13 08:19 | CP.PCM.PN ---
<Loida Oconnor - Last Filed: 09/13/18 11:00> Subjective - Date & Time of Evaluation Date of Evaluation: 09/13/18 Time of Evaluation: 08:17 - Subjective Subjective: Pulm Consult note for Dr. Morrell Patient appears well today. Afebrile. On respiratory isolation States her shortness of breath and cough continue to be managed well on nasal cannula. Patient sputum culture grew pseudomonas fluorescens sensitive to ciprofloxacin BARTOLO very high, + CCRP and antistreptolysin O ROS: patient admits to productive cough, SOB, Patient denies fever, chills, chest pain, diarrhea, weight loss, hemoptysis Objective - Vital Signs/Intake and Output Vital Signs (last 24 hours): Temp Pulse Resp BP Pulse Ox 97.6 F 74 20 111/72 96 09/13/18 08:11 09/13/18 08:11 09/13/18 08:11 09/13/18 08:11 09/13/18 08:11 - Medications Medications: Current Medications Albuterol/Ipratropium (Duoneb 3 Mg/0.5 Mg (3 Ml) Ud) 3 ml INH RQ6 SARAH Last Admin: 09/13/18 02:30 Dose: Not Given Baclofen (Lioresal) 20 mg PO BID [facility] Last Admin: 09/12/18 17:49 Dose: 20 mg Folic Acid (Folic Acid) 1 mg PO DAILY SARAH Last Admin: 09/12/18 09:33 Dose: 1 mg Guaifenesin (Mucinex La) 600 mg PO BID SARAH Last Admin: 09/12/18 17:49 Dose: 600 mg Hydroxychloroquine Sulfate (Plaquenil) 200 mg PO BID SARAH Last Admin: 09/12/18 22:20 Dose: 200 mg Trimethoprim/Sulfamethoxazole (240 mg/ Dextrose) 250 mls @ 250 mls/hr IVPB Q12H SARAH; Protocol Last Admin: 09/13/18 06:03 Dose: 250 mls/hr Fluconazole (Diflucan Iv 200 Mg/100 Ml Ns) 100 mls @ 100 mls/hr IVPB 1500 SARAH; Protocol Last Admin: 09/12/18 14:45 Dose: 100 mls/hr Ciprofloxacin (Cipro 400mg/200ml Dsw) 400 mg in 200 mls @ 133 mls/hr IVPB Q12H SARAH; Protocol Last Admin: 09/13/18 03:11 Dose: 133 mls/hr Methylprednisolone (Solu-Medrol) 60 mg IVP Q12H SARAH Last Admin: 09/12/18 21:03 Dose: 60 mg Senna/Docusate Sodium (Senokot S 50 Mg-8.6 Mg) 2 tab PO HS SARAH Last Admin: 09/12/18 21:02 Dose: 2 tab Sumatriptan Succinate (Imitrex Tab) 100 mg PO DAILY PRN - Labs Labs: 09/10/18 07:10 09/10/18 07:10 - Constitutional Appears: Well, Non-toxic, No Acute Distress - Head Exam Head Exam: ATRAUMATIC, NORMOCEPHALIC - Eye Exam Eye Exam: Normal appearance - ENT Exam ENT Exam: Mucous Membranes Moist - Respiratory Exam Respiratory Exam: Rales, NORMAL BREATHING PATTERN. absent: Rhonchi, Wheezes - Cardiovascular Exam Cardiovascular Exam: REGULAR RHYTHM, +S1, +S2. absent: JVD - GI/Abdominal Exam GI & Abdominal Exam: Soft, Normal Bowel Sounds - Back Exam Back Exam: NORMAL INSPECTION. absent: tenderness - Skin Skin Exam: Dry, Warm Assessment and Plan - Assessment and Plan (Free Text) Assessment: 43 year old female with PMHx of sarcoidosis, SLE, RA, Asthma on chronic steroid and humira therapy presenting with 1 month history of increased shortness of breath and cough. Plan: 1. Respiratory distress CXR shows no interval change Continue ciprofloxacin, bactrim, Vanc d/c'd by primary team Continue IV fungal fluconazole. ID rec's appreciated. On IV steroids Elevated antistreptolysin O antibody consistent Streptococcus infection. f/u galactomannan and B-D-glucan Potential for bronchoscopy with biopsy <Sergo Morrell S - Last Filed: 09/13/18 17:38> Objective - Vital Signs/Intake and Output Vital Signs (last 24 hours): Temp Pulse Resp BP Pulse Ox 97.8 F 73 20 122/78 99 09/13/18 16:21 09/13/18 16:21 09/13/18 16:21 09/13/18 16:21 09/13/18 16:21 Intake and Output: 09/13/18 09/13/18 06:59 18:59 Intake Total 580 Balance 580 - Medications Medications: Current Medications Albuterol/Ipratropium (Duoneb 3 Mg/0.5 Mg (3 Ml) Ud) 3 ml INH RQ6 SARAH Last Admin: 09/13/18 13:36 Dose: 3 ml Baclofen (Lioresal) 20 mg PO BID SARAH Last Admin: 09/13/18 10:44 Dose: 20 mg Folic Acid (Folic Acid) 1 mg PO DAILY SARAH Last Admin: 09/13/18 10:44 Dose: 1 mg Guaifenesin (Mucinex La) 600 mg PO BID SARAH Last Admin: 09/13/18 10:44 Dose: 600 mg Hydroxychloroquine Sulfate (Plaquenil) 200 mg PO BID SARAH Last Admin: 09/13/18 10:45 Dose: 200 mg Trimethoprim/Sulfamethoxazole (240 mg/ Dextrose) 250 mls @ 250 mls/hr IVPB Q12H SARAH; Protocol Last Admin: 09/13/18 06:03 Dose: 250 mls/hr Fluconazole (Diflucan Iv 200 Mg/100 Ml Ns) 100 mls @ 100 mls/hr IVPB 1500 SARAH; Protocol Last Admin: 09/13/18 14:34 Dose: 100 mls/hr Ciprofloxacin (Cipro 400mg/200ml Dsw) 400 mg in 200 mls @ 133 mls/hr IVPB Q12H SARAH; Protocol Last Admin: 09/13/18 16:38 Dose: 133 mls/hr Methylprednisolone (Solu-Medrol) 60 mg IVP Q12H SARAH Last Admin: 09/13/18 10:00 Dose: 60 mg Senna/Docusate Sodium (Senokot S 50 Mg-8.6 Mg) 2 tab PO HS [facility] Last Admin: 09/12/18 21:02 Dose: 2 tab Sumatriptan Succinate (Imitrex Tab) 100 mg PO DAILY PRN - Labs Labs: 09/10/18 07:10 09/10/18 07:10 Assessment and Plan (1) Respiratory distress Status: Acute (2) Rheumatoid aortitis Status: Acute (3) Systemic lupus Status: Acute Attending/Attestation - Attestation I have personally seen and examined this patient.: Yes I have fully participated in the care of the patient.: Yes I have reviewed all pertinent clinical information, including history, physical exam and plan: Yes Notes (Text): 09/13/18 17:38 Patient seen and examined Patient states cough is much better Afebrile Chest x-ray with no change Continue antibiotics Case discussed with rheumatology Possible bronchoscopy if no improvement
[2018-09-13 08:24] LABS: ALB/GLOB RATIO 0.9 (1.0-2.1); ALBUMIN 3.7 g/dL (3.5-5.0); BILIRUBIN,DIRECT 0.2 mg/dL (0.0-0.4)
[2018-09-13] MEDS: MethylPREDNISolone 40 mg Vial IVP SCH (10:00)
[2018-09-13] MEDS: guaiFENesin 600 mg ER Tab PO SCH ×2 (10:44→18:15)
--- NOTE | 2018-09-13 11:33 | CP.PCM.PN ---
Subjective - Date & Time of Evaluation Date of Evaluation: 09/13/18 Time of Evaluation: 11:32 - Subjective Subjective: AFEBRILE, ON NC O2, COMFORTBLE +VE COUGH. CLINICALLY SAME LABS: QUANTIFERON GOLD B TEST- INDETERMINATE. SPUTUM +VE pSEUDOMONAS FLUORESCENCE S- CIPRO.. PLAN; ON iv CIPRO 400 MG EVERY 12 HOURLY FOR BETTER pSEUDOMONAS COVERAGE. 09/12/18. CONTINUE iv BACTRIM IV TO 40 MG EVERY 12 HOURLY. CONTINUE DIFLUCAN 200 MG ONCE A DAY DAILY. D/C IV VANCOMYCIN D/C IV zITHROMAX;- ALSO HAS SEVERE REACTION WITH dIFLUCAN ON BOARD WILL GET TB- SPOT TEST FOR CONFIRMATION FOR LATENT TB. sPUTUM FOR AFB IN PROCESS. sPUTUM FOR FUNGUS-SMEAR AND CULTURE PENDING. PATIENT WILL NEED BX LUNG TO CONFIRM DIAGNOSES OF SARCOID-? POSSIBLE NONCASEATING GRANULOMAS IN THE LUNG/ OR RHEUMATOID LUNG RATHER THAN INFECTIOUS PROCESS. PER DR. CLAROS ELECTRONIC COMPONENTS ASSEMBLER- PREVIOUS BIOPSY RESULTS NOT CLEAR.,( . pLEASE TRY TO GET BIOPSY REPORT FROM DR. CINTRON ) WILL REPEAT Renée LEVELS IF NOT DONE WILL DISCUSS WITH PULMONARY. Objective - Vital Signs/Intake and Output Vital Signs (last 24 hours): Temp Pulse Resp BP Pulse Ox 97.6 F 74 20 111/72 96 09/13/18 08:11 09/13/18 08:11 09/13/18 08:11 09/13/18 08:11 09/13/18 08:11 - Medications Medications: Current Medications Albuterol/Ipratropium (Duoneb 3 Mg/0.5 Mg (3 Ml) Ud) 3 ml INH RQ6 SARAH Last Admin: 09/13/18 07:45 Dose: 3 ml Baclofen (Lioresal) 20 mg PO BID [facility]AH Last Admin: 09/13/18 10:44 Dose: 20 mg Folic Acid (Folic Acid) 1 mg PO DAILY [facility] Last Admin: 09/13/18 10:44 Dose: 1 mg Guaifenesin (Mucinex La) 600 mg PO BID [facility]AH Last Admin: 09/13/18 10:44 Dose: 600 mg Hydroxychloroquine Sulfate (Plaquenil) 200 mg PO BID SARAH Last Admin: 09/13/18 10:45 Dose: 200 mg Trimethoprim/Sulfamethoxazole (240 mg/ Dextrose) 250 mls @ 250 mls/hr IVPB Q12H SARAH; Protocol Last Admin: 09/13/18 06:03 Dose: 250 mls/hr Fluconazole (Diflucan Iv 200 Mg/100 Ml Ns) 100 mls @ 100 mls/hr IVPB 1500 [facility]; Protocol Last Admin: 09/12/18 14:45 Dose: 100 mls/hr Ciprofloxacin (Cipro 400mg/200ml Dsw) 400 mg in 200 mls @ 133 mls/hr IVPB Q12H [facility]; Protocol Last Admin: 09/13/18 03:11 Dose: 133 mls/hr Methylprednisolone (Solu-Medrol) 60 mg IVP Q12H [facility] Last Admin: 09/13/18 10:00 Dose: 60 mg Senna/Docusate Sodium (Senokot S 50 Mg-8.6 Mg) 2 tab PO HS [facility] Last Admin: 09/12/18 21:02 Dose: 2 tab Sumatriptan Succinate (Imitrex Tab) 100 mg PO DAILY PRN - Labs Labs: 09/10/18 07:10 09/10/18 07:10 - Constitutional Appears: No Acute Distress - Head Exam Head Exam: NORMAL INSPECTION - Eye Exam Eye Exam: EOMI, PERRL - ENT Exam ENT Exam: Normal Oropharynx - Neck Exam Neck Exam: Normal Inspection. absent: Lymphadenopathy - Respiratory Exam Respiratory Exam: Rhonchi (B/L WITH COARSE CREPS) - Cardiovascular Exam Cardiovascular Exam: REGULAR RHYTHM, +S1, +S2 - GI/Abdominal Exam GI & Abdominal Exam: Soft, Normal Bowel Sounds - Extremities Exam Extremities Exam: Normal Capillary Refill, Pedal Edema. 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 09/12/18. CONTINUE iv BACTRIM IV TO 40 MG EVERY 12 HOURLY. CONTINUE DIFLUCAN 200 MG ONCE A DAY DAILY. D/C IV VANCOMYCIN 09/12/18 D/C IV zITHROMAX;- ALSO HAS SEVERE REACTION WITH dIFLUCAN ON BOARD 09/12/18 WILL GET TB- SPOT TEST FOR CONFIRMATION FOR LATENT TB. sPUTUM FOR AFB IN PROCESS. sPUTUM FOR FUNGUS-SMEAR AND CULTURE PENDING. PATIENT WILL NEED BX LUNG TO CONFIRM DIAGNOSES OF SARCOID-? POSSIBLE NONCASEATING GRANULOMAS IN THE LUNG/ OR RHEUMATOID LUNG RATHER THAN INFECTIOUS PROCESS. PER DR. CLAROS ELECTRONIC COMPONENTS ASSEMBLER- PREVIOUS BIOPSY RESULTS NOT CLEAR.,( . pLEASE TRY TO GET BIOPSY REPORT FROM DR. CINTRON ) WILL REPEAT Renée LEVELS IF NOT DONE WILL DISCUSS WITH PULMONARY.
[2018-09-13] MEDS: Fluconazole IV 200mg/100 ml NS 100 ML IVPB SCH (14:34)
[2018-09-13] MEDS: Docusate-Senna 50 mg-8.6 mg Tab PO SCH (22:16)
[2018-09-13] MEDS: Tmp-Smz 800 mg-160 mg DS Tab PO SCH (22:16)
--- NOTE | 2018-09-13 22:28 | CP.PCM.PN ---
Subjective - Date & Time of Evaluation Date of Evaluation: 09/13/18 Time of Evaluation: 12:45 - Subjective Subjective: patient still has cough and recurrent shortness of breath. She is alert and responsive. Sputum culture manifests Pseudomonas. Patient will need lung biopsy. Patient is receiviing hydroxychloroquine 200 mg one tablet twice a day Objective - Vital Signs/Intake and Output Vital Signs (last 24 hours): Temp Pulse Resp BP Pulse Ox 97.8 F 73 20 122/78 99 09/13/18 16:21 09/13/18 16:21 09/13/18 16:21 09/13/18 16:21 09/13/18 16:21 Intake and Output: 09/13/18 09/14/18 18:59 06:59 Intake Total 580 Balance 580 - Medications Medications: Current Medications Baclofen (Lioresal) 20 mg PO BID [facility] Last Admin: 09/13/18 18:15 Dose: 20 mg Ciprofloxacin (Cipro) 500 mg PO BID [facility]; Protocol Fluconazole (Diflucan) 200 mg PO DAILY [facility]; Protocol Folic Acid (Folic Acid) 1 mg PO DAILY [facility] Last Admin: 09/13/18 10:44 Dose: 1 mg Guaifenesin (Mucinex La) 600 mg PO BID [facility] Last Admin: 09/13/18 18:15 Dose: 600 mg Hydroxychloroquine Sulfate (Plaquenil) 200 mg PO BID [facility] Last Admin: 09/13/18 18:15 Dose: 200 mg Trimethoprim/Sulfamethoxazole (240 mg/ Dextrose) 250 mls @ 250 mls/hr IVPB Q12H [facility]; Protocol Last Admin: 09/13/18 19:02 Dose: 250 mls/hr Fluconazole (Diflucan Iv 200 Mg/100 Ml Ns) 100 mls @ 100 mls/hr IVPB 1500 [facility]; Protocol Last Admin: 09/13/18 14:34 Dose: 100 mls/hr Ciprofloxacin (Cipro 400mg/200ml Dsw) 400 mg in 200 mls @ 133 mls/hr IVPB Q12H [facility]; Protocol Last Admin: 09/13/18 16:38 Dose: 133 mls/hr Prednisone (Prednisone Tab) 20 mg PO DAILY [facility] Senna/Docusate Sodium (Senokot S 50 Mg-8.6 Mg) 2 tab PO HS [facility] Last Admin: 09/13/18 22:16 Dose: 2 tab Sumatriptan Succinate (Imitrex Tab) 100 mg PO DAILY PRN Trimethoprim/Sulfamethoxazole (Bactrim Ds Tab) 1 tab PO Q12H [facility]; Protocol Last Admin: 09/13/18 22:16 Dose: 1 tab - Labs Labs: 09/10/18 07:10 09/10/18 07:10 - Constitutional Appears: Chronically Ill - Head Exam Head Exam: NORMOCEPHALIC - Eye Exam Eye Exam: Normal appearance Pupil Exam: NORMAL ACCOMODATION - ENT Exam ENT Exam: Normal Exam - Neck Exam Neck Exam: Normal Inspection - Respiratory Exam Respiratory Exam: Rhonchi - Cardiovascular Exam Cardiovascular Exam: REGULAR RHYTHM - GI/Abdominal Exam GI & Abdominal Exam: Normal Bowel Sounds - Rectal Exam Rectal Exam: Deferred - Extremities Exam Extremities Exam: Tenderness - Back Exam Back Exam: paraspinal tenderness - Neurological Exam Neurological Exam: Oriented x3 - Psychiatric Exam Psychiatric exam: Anxious - Skin Skin Exam: Dry Assessment and Plan (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
--- NOTE | 2018-09-14 04:12 | CP.PCM.PN ---
Subjective - Date & Time of Evaluation Date of Evaluation: 09/13/18 Time of Evaluation: 07:00 - Subjective Subjective: dict Objective - Vital Signs/Intake and Output Vital Signs (last 24 hours): Temp Pulse Resp BP Pulse Ox 97.8 F 67 20 127/82 99 09/14/18 00:00 09/14/18 00:00 09/14/18 00:00 09/14/18 00:00 09/14/18 00:00 Intake and Output: 09/13/18 09/14/18 18:59 06:59 Intake Total 580 700 Balance 580 700 - Medications Medications: Current Medications Baclofen (Lioresal) 20 mg PO BID [facility] Last Admin: 09/13/18 18:15 Dose: 20 mg Ciprofloxacin (Cipro) 500 mg PO BID [facility]; Protocol Fluconazole (Diflucan) 200 mg PO DAILY [facility]; Protocol Folic Acid (Folic Acid) 1 mg PO DAILY [facility] Last Admin: 09/13/18 10:44 Dose: 1 mg Guaifenesin (Mucinex La) 600 mg PO BID [facility] Last Admin: 09/13/18 18:15 Dose: 600 mg Hydroxychloroquine Sulfate (Plaquenil) 200 mg PO BID [facility] Last Admin: 09/13/18 18:15 Dose: 200 mg Trimethoprim/Sulfamethoxazole (240 mg/ Dextrose) 250 mls @ 250 mls/hr IVPB Q12H [facility]; Protocol Last Admin: 09/13/18 19:02 Dose: 250 mls/hr Fluconazole (Diflucan Iv 200 Mg/100 Ml Ns) 100 mls @ 100 mls/hr IVPB 1500 [facility]; Protocol Last Admin: 09/13/18 14:34 Dose: 100 mls/hr Ciprofloxacin (Cipro 400mg/200ml Dsw) 400 mg in 200 mls @ 133 mls/hr IVPB Q12H [facility]; Protocol Last Admin: 09/13/18 16:38 Dose: 133 mls/hr Prednisone (Prednisone Tab) 20 mg PO DAILY [facility] Senna/Docusate Sodium (Senokot S 50 Mg-8.6 Mg) 2 tab PO HS [facility] Last Admin: 09/13/18 22:16 Dose: 2 tab Sumatriptan Succinate (Imitrex Tab) 100 mg PO DAILY PRN Trimethoprim/Sulfamethoxazole (Bactrim Ds Tab) 1 tab PO Q12H [facility]; Protocol Last Admin: 09/13/18 22:16 Dose: 1 tab - Labs Labs: 09/10/18 07:10 09/10/18 07:10
[2018-09-14] MEDS: Tmp-Smz 800 mg-160 mg DS Tab PO SCH ×2 (08:38→21:55)
--- NOTE | 2018-09-14 09:57 | PN ---
DATE: 09/14/2018 SUBJECTIVE: The patient is afebrile. Decreased cough. Decreased shortness of breath. Decreased wheezing. She is on IV Bactrim. PHYSICAL EXAMINATION: VITAL SIGNS: Blood pressure 132/89, pulse 68, respiratory rate 20, temperature 97.8. LUNGS: Bilateral crackles. Crackles are decreasing now. CARDIOVASCULAR SYSTEM: S1 and S2 regular. ABDOMEN: Soft. ASSESSMENT: Pneumonia, most likely it is an atypical pneumonia versus pneumocystis carinii pneumonia. Given the patient's immunosuppressive status; however, the patient is improving and her oxygenation has improved. The patient will be followed up as the patient's acid-fast bacilli's so far have been negative, third one is pending. She remains on respiratory isolation. She will be followed up. Elvin Hidalgo MD
--- NOTE | 2018-09-14 11:08 | CP.PCM.PN ---
<Loida Oconnor - Last Filed: 09/14/18 13:05> Subjective - Date & Time of Evaluation Date of Evaluation: 09/14/18 Time of Evaluation: 11:04 - Subjective Subjective: Pulm Consult note for Dr. Morrell Patient appears well today. Afebrile. Continues on respiratory isolation. States her shortness of breath and cough continue to improve and are managed well on nasal cannula. Antibiotics transitioned to PO. Patient sputum culture grew pseudomonas fluorescens sensitive to ciprofloxacin BARTOLO very high, + CCRP and antistreptolysin O, TB quantiferon gold- indeterminant, Histoplasmosis galactomannan antigen negative. ROS: patient admits to productive cough, SOB, Patient denies fever, chills, chest pain, diarrhea, weight loss, hemoptysis Objective - Vital Signs/Intake and Output Vital Signs (last 24 hours): Temp Pulse Resp BP Pulse Ox 97.8 F 68 20 132/89 96 09/14/18 07:56 09/14/18 07:56 09/14/18 07:56 09/14/18 07:56 09/14/18 07:56 Intake and Output: 09/14/18 09/14/18 06:59 18:59 Intake Total 700 240 Balance 700 240 - Medications Medications: Current Medications Baclofen (Lioresal) 20 mg PO BID [facility] Last Admin: 09/13/18 18:15 Dose: 20 mg Ciprofloxacin (Cipro) 500 mg PO BID [facility]; Protocol Fluconazole (Diflucan) 200 mg PO DAILY [facility]; Protocol Folic Acid (Folic Acid) 1 mg PO DAILY [facility] Last Admin: 09/13/18 10:44 Dose: 1 mg Guaifenesin (Mucinex La) 600 mg PO BID [facility] Last Admin: 09/13/18 18:15 Dose: 600 mg Hydroxychloroquine Sulfate (Plaquenil) 200 mg PO BID [facility] Last Admin: 09/13/18 18:15 Dose: 200 mg Trimethoprim/Sulfamethoxazole (240 mg/ Dextrose) 250 mls @ 250 mls/hr IVPB Q12H [facility]; Protocol Last Admin: 09/13/18 19:02 Dose: 250 mls/hr Fluconazole (Diflucan Iv 200 Mg/100 Ml Ns) 100 mls @ 100 mls/hr IVPB 1500 [facility]; Protocol Last Admin: 09/13/18 14:34 Dose: 100 mls/hr Ciprofloxacin (Cipro 400mg/200ml Dsw) 400 mg in 200 mls @ 133 mls/hr IVPB Q12H [facility]; Protocol Last Admin: 09/13/18 16:38 Dose: 133 mls/hr Prednisone (Prednisone Tab) 20 mg PO DAILY [facility] Senna/Docusate Sodium (Senokot S 50 Mg-8.6 Mg) 2 tab PO HS [facility] Last Admin: 09/13/18 22:16 Dose: 2 tab Sumatriptan Succinate (Imitrex Tab) 100 mg PO DAILY PRN Trimethoprim/Sulfamethoxazole (Bactrim Ds Tab) 1 tab PO Q12H [facility]; Protocol Last Admin: 09/14/18 08:38 Dose: 1 tab - Labs Labs: 09/10/18 07:10 09/10/18 07:10 - Constitutional Appears: Well, Non-toxic - Head Exam Head Exam: ATRAUMATIC, NORMOCEPHALIC - Eye Exam Eye Exam: EOMI, Normal appearance - ENT Exam ENT Exam: Mucous Membranes Moist - Respiratory Exam Respiratory Exam: Clear to Ausculation Bilateral, NORMAL BREATHING PATTERN. absent: Rales, Rhonchi, Wheezes - Cardiovascular Exam Cardiovascular Exam: REGULAR RHYTHM, +S1, +S2 - GI/Abdominal Exam GI & Abdominal Exam: Soft, Normal Bowel Sounds - Extremities Exam Extremities Exam: Tenderness (from lab draws) - Skin Skin Exam: Dry, Warm Assessment and Plan - Assessment and Plan (Free Text) Assessment: 43 year old female with PMHx of sarcoidosis, SLE, RA, Asthma on chronic steroid and humira therapy presenting with 1 month history of increased shortness of breath and cough. Plan: A: Pneumonia Sarcoidosis Continue ciprofloxacin, bactrim; ID following Continue fluconazole transitioned to PO steroids Galactomannan negative Biospy report reviewed with Dr. Morrell Repeat Xray pending Continue sarcoidosis management as per Rheumatology and primary team <Sergo Morrell - Last Filed: 09/14/18 16:07> Objective - Vital Signs/Intake and Output Vital Signs (last 24 hours): Temp Pulse Resp BP Pulse Ox 97.8 F 68 20 132/89 96 09/14/18 07:56 09/14/18 07:56 09/14/18 07:56 09/14/18 07:56 09/14/18 07:56 Intake and Output: 09/14/18 09/14/18 06:59 18:59 Intake Total 700 720 Balance 700 720 - Medications Medications: Current Medications Baclofen (Lioresal) 20 mg PO BID [facility] Last Admin: 09/14/18 11:19 Dose: 20 mg Ciprofloxacin (Cipro) 500 mg PO BID [facility]; Protocol Last Admin: 09/14/18 11:19 Dose: 500 mg Folic Acid (Folic Acid) 1 mg PO DAILY [facility] Last Admin: 09/14/18 11:20 Dose: 1 mg Guaifenesin (Mucinex La) 600 mg PO BID [facility] Last Admin: 09/14/18 11:20 Dose: 600 mg Hydroxychloroquine Sulfate (Plaquenil) 200 mg PO BID [facility] Last Admin: 09/14/18 11:19 Dose: 200 mg Trimethoprim/Sulfamethoxazole (240 mg/ Dextrose) 250 mls @ 250 mls/hr IVPB Q12H [facility]; Protocol Last Admin: 09/13/18 19:02 Dose: 250 mls/hr Fluconazole (Diflucan Iv 200 Mg/100 Ml Ns) 100 mls @ 100 mls/hr IVPB 1500 [facility]; Protocol Last Admin: 09/13/18 14:34 Dose: 100 mls/hr Ciprofloxacin (Cipro 400mg/200ml Dsw) 400 mg in 200 mls @ 133 mls/hr IVPB Q12H [facility]; Protocol Last Admin: 09/13/18 16:38 Dose: 133 mls/hr Prednisone (Prednisone Tab) 20 mg PO DAILY [facility] Last Admin: 09/14/18 11:19 Dose: 20 mg Senna/Docusate Sodium (Senokot S 50 Mg-8.6 Mg) 2 tab PO HS [facility] Last Admin: 09/13/18 22:16 Dose: 2 tab Sumatriptan Succinate (Imitrex Tab) 100 mg PO DAILY PRN Trimethoprim/Sulfamethoxazole (Bactrim Ds Tab) 1 tab PO Q12H [facility]; Protocol Last Admin: 09/14/18 08:38 Dose: 1 tab - Labs Labs: 09/10/18 07:10 09/10/18 07:10 Assessment and Plan (1) Respiratory distress Status: Acute (2) Rheumatoid aortitis Status: Acute (3) Systemic lupus Status: Acute Attending/Attestation - Attestation I have personally seen and examined this patient.: Yes I have fully participated in the care of the patient.: Yes I have reviewed all pertinent clinical information, including history, physical exam and plan: Yes Notes (Text): 09/14/18 16:04 Patient seen and examined Clinically improving Much less cough and shortness of breath Afebrile Chest x-ray reviewed Patient had lung biopsy done last year in December and negative for noncaseating granuloma Continue antibiotics as per infectious disease for Pseudomonas infection Unlikely fungal infection and agree with discontinuing fluconazole No indication for bronc biopsy at this point
[2018-09-14] MEDS: guaiFENesin 600 mg ER Tab PO SCH ×2 (11:20→17:59)
--- NOTE | 2018-09-14 14:19 | RAD ---
Chest x-ray two views HISTORY: Shortness of breath and cough. COMPARISON: 09/11/2018 FINDINGS: Prominent patchy consolidative opacities seen at the right lung base as well as the left mid to lower lung zone. Diffuse increased interstitial lung markings. Scattered nodularity throughout both lung jimenez. Heart size within normal limits. Degenerative changes in the spine and shoulders. Surgical clips in the right upper abdomen. IMPRESSION: Prominent patchy consolidative opacities seen at the right lung base as well as the left mid to lower lung zone. Diffuse increased interstitial lung markings. Scattered nodularity throughout both lung jimenez. Heart size within normal limits. Degenerative changes in the spine and shoulders. Surgical clips in the right upper abdomen.
[2018-09-14] MEDS ORDERED: Pantoprazole 40 mg EC Tab PO PRN (18:19)
[2018-09-14] MEDS: Nystatin 100,000 Units/ml Oral Susp 5 ml UD PO SCH (21:55)
[2018-09-14] MEDS: Docusate-Senna 50 mg-8.6 mg Tab PO SCH (21:56)
--- NOTE | 2018-09-14 22:00 | CP.PCM.PN ---
Subjective - Date & Time of Evaluation Date of Evaluation: 09/14/18 Time of Evaluation: 22:00 - Subjective Subjective: AFEBRILE, ON NC O2, PERSISTENT +VE COUGH. LABS: BX LUNG 12/03/[address] CINTRON NONSPECIFIC -ACUTE/CHRONIC INFLAMATION. -VE FOR MALIGNANCY HISTO. GLACTOMANNAN AG -VE BETA(1,3 ) -D GUCAN AG +VE 130. ( NONSPECIFIC- FALSE +VE VS FUNGAL ) QUANTIFERON GOLD B TEST- INDETERMINATE. SPUTUM +VE pSEUDOMONAS FLUORESCENCE S- CIPRO.. SPUTUM AFB -VE SMEARS AFB X3 Objective - Vital Signs/Intake and Output Vital Signs (last 24 hours): Temp Pulse Resp BP Pulse Ox 98.1 F 77 20 107/71 98 09/14/18 16:02 09/14/18 16:02 09/14/18 16:02 09/14/18 16:02 09/14/18 16:02 Intake and Output: 09/14/18 09/15/18 18:59 06:59 Intake Total 720 Balance 720 - Medications Medications: Current Medications Baclofen (Lioresal) 20 mg PO BID [facility] Last Admin: 09/14/18 18:00 Dose: 20 mg Ciprofloxacin (Cipro) 500 mg PO BID [facility]; Protocol Last Admin: 09/14/18 17:59 Dose: 500 mg Folic Acid (Folic Acid) 1 mg PO DAILY [facility] Last Admin: 09/14/18 11:20 Dose: 1 mg Guaifenesin (Mucinex La) 600 mg PO BID [facility] Last Admin: 09/14/18 17:59 Dose: 600 mg Hydroxychloroquine Sulfate (Plaquenil) 200 mg PO BID [facility] Last Admin: 09/14/18 17:59 Dose: 200 mg Nystatin (Nystatin Oral Susp) 5 ml PO QID [facility] Last Admin: 09/14/18 21:55 Dose: 5 ml Pantoprazole Sodium (Protonix Ec Tab) 40 mg PO DAILY PRN PRN Reason: GI distress Last Admin: 09/14/18 18:37 Dose: 40 mg Prednisone (Prednisone Tab) 20 mg PO DAILY [facility] Last Admin: 09/14/18 11:19 Dose: 20 mg Senna/Docusate Sodium (Senokot S 50 Mg-8.6 Mg) 2 tab PO HS [facility] Last Admin: 09/14/18 21:56 Dose: 2 tab Sumatriptan Succinate (Imitrex Tab) 100 mg PO DAILY PRN Trimethoprim/Sulfamethoxazole (Bactrim Ds Tab) 1 tab PO Q12H [facility]; Protocol Last Admin: 09/14/18 21:55 Dose: 1 tab - Labs Labs: 09/10/18 07:10 09/10/18 07:10 - Constitutional Appears: No Acute Distress - Head Exam Head Exam: NORMAL INSPECTION - Eye Exam Eye Exam: EOMI, PERRL - ENT Exam ENT Exam: Normal Oropharynx - Neck Exam Neck Exam: Normal Inspection. absent: Lymphadenopathy (B/L RHONCHI) - Respiratory Exam Respiratory Exam: Rhonchi, NORMAL BREATHING PATTERN - Cardiovascular Exam Cardiovascular Exam: REGULAR RHYTHM, +S1, +S2 - Extremities Exam Extremities Exam: Normal Capillary Refill. 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 UNABLE TO START WITH MULTIPLE 5-6 ATTEMPTS ' CONTINUE PO CIPRO 500 MG EVERY 12 HOURLY FOR BETTER pSEUDOMONAS COVERAGE. 09/12. CONTINUE PO BACTRIM I DS EVERY 12 HOURLY. NYSTATIN PO SWISH/ SWALLOW QID PT ON STEROIDS TB- SPOT TEST FOR CONFIRMATION FOR LATENT TB IN PROGRESS SPUTUM FOR FUNGUS-SMEAR AND CULTURE PENDING. PATIENT WILL NEED BX LUNG TO CONFIRM DIAGNOSIS /UNDERLYING PROCESS INFECTIOUS ? TB VS ASPERGILLOSIS VS PCP VS NON INFECTIOUS PROCESS ( RHEUMATOID LUNG WITH FIBROSIS ) PT AT HIGH RISK FOR INFECTIOUS PROCESSES DUE TO HUMIRA-MONOCLONAL ANTIBODY-TNF. WILL DISCUSS WITH PULMONARY. CASE DISCUSSED WITH KARINA MAHARAJ TRAVEL ACCOMMODATION INSPECTOR .
--- NOTE | 2018-09-14 22:31 | CP.PCM.PN ---
Subjective - Date & Time of Evaluation Date of Evaluation: 09/14/18 Time of Evaluation: 13:10 - Subjective Subjective: patient alert and responsive. She still has cough and lung congestion. Repeat Quantaferon Gold ordered. Sedimentation rate 125 and REGINO level LXXI. Patient now on by mouth antibiotics. Will repeat chest x-ray. Objective - Vital Signs/Intake and Output Vital Signs (last 24 hours): Temp Pulse Resp BP Pulse Ox 98.1 F 77 20 107/71 98 09/14/18 16:02 09/14/18 16:02 09/14/18 16:02 09/14/18 16:02 09/14/18 16:02 Intake and Output: 09/14/18 09/15/18 18:59 06:59 Intake Total 720 Balance 720 - Medications Medications: Current Medications Baclofen (Lioresal) 20 mg PO BID [facility] Last Admin: 09/14/18 18:00 Dose: 20 mg Ciprofloxacin (Cipro) 500 mg PO BID [facility]; Protocol Last Admin: 09/14/18 17:59 Dose: 500 mg Folic Acid (Folic Acid) 1 mg PO DAILY [facility] Last Admin: 09/14/18 11:20 Dose: 1 mg Guaifenesin (Mucinex La) 600 mg PO BID [facility] Last Admin: 09/14/18 17:59 Dose: 600 mg Hydroxychloroquine Sulfate (Plaquenil) 200 mg PO BID [facility] Last Admin: 09/14/18 17:59 Dose: 200 mg Nystatin (Nystatin Oral Susp) 5 ml PO QID [facility] Last Admin: 09/14/18 21:55 Dose: 5 ml Pantoprazole Sodium (Protonix Ec Tab) 40 mg PO DAILY PRN PRN Reason: GI distress Last Admin: 09/14/18 18:37 Dose: 40 mg Prednisone (Prednisone Tab) 20 mg PO DAILY [facility] Last Admin: 09/14/18 11:19 Dose: 20 mg Senna/Docusate Sodium (Senokot S 50 Mg-8.6 Mg) 2 tab PO HS [facility] Last Admin: 09/14/18 21:56 Dose: 2 tab Sumatriptan Succinate (Imitrex Tab) 100 mg PO DAILY PRN Trimethoprim/Sulfamethoxazole (Bactrim Ds Tab) 1 tab PO Q12H [facility]; Protocol Last Admin: 09/14/18 21:55 Dose: 1 tab - Labs Labs: 09/10/18 07:10 04/12/19 07:10 - Constitutional Appears: Chronically Ill - Head Exam Head Exam: NORMOCEPHALIC - Eye Exam Eye Exam: Normal appearance Pupil Exam: NORMAL ACCOMODATION - ENT Exam ENT Exam: Normal Exam - Neck Exam Neck Exam: Normal Inspection - Respiratory Exam Respiratory Exam: Decreased Breath Sounds - Cardiovascular Exam Cardiovascular Exam: REGULAR RHYTHM - GI/Abdominal Exam GI & Abdominal Exam: Normal Bowel Sounds - Rectal Exam Rectal Exam: Deferred - Extremities Exam Extremities Exam: Tenderness - Back Exam Back Exam: NORMAL INSPECTION - Neurological Exam Neurological Exam: Oriented x3 - Psychiatric Exam Psychiatric exam: Depressed - Skin Skin Exam: Dry Assessment and Plan (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
--- NOTE | 2018-09-14 22:40 | CP.PCM.PN ---
Subjective - Date & Time of Evaluation Date of Evaluation: 09/14/18 Time of Evaluation: 11:25 - Subjective Subjective: dictated Objective - Vital Signs/Intake and Output Vital Signs (last 24 hours): Temp Pulse Resp BP Pulse Ox 98.1 F 77 20 107/71 98 09/14/18 16:02 09/14/18 16:02 09/14/18 16:02 09/14/18 16:02 09/14/18 16:02 Intake and Output: 09/14/18 09/15/18 18:59 06:59 Intake Total 720 400 Balance 720 400 - Medications Medications: Current Medications Baclofen (Lioresal) 20 mg PO BID [facility] Last Admin: 09/14/18 18:00 Dose: 20 mg Ciprofloxacin (Cipro) 500 mg PO BID [facility]; Protocol Last Admin: 09/14/18 17:59 Dose: 500 mg Folic Acid (Folic Acid) 1 mg PO DAILY [facility] Last Admin: 09/14/18 11:20 Dose: 1 mg Guaifenesin (Mucinex La) 600 mg PO BID [facility] Last Admin: 09/14/18 17:59 Dose: 600 mg Hydroxychloroquine Sulfate (Plaquenil) 200 mg PO BID [facility] Last Admin: 09/14/18 17:59 Dose: 200 mg Nystatin (Nystatin Oral Susp) 5 ml PO QID [facility] Last Admin: 09/14/18 21:55 Dose: 5 ml Pantoprazole Sodium (Protonix Ec Tab) 40 mg PO DAILY PRN PRN Reason: GI distress Last Admin: 09/14/18 18:37 Dose: 40 mg Prednisone (Prednisone Tab) 20 mg PO DAILY [facility] Last Admin: 09/14/18 11:19 Dose: 20 mg Senna/Docusate Sodium (Senokot S 50 Mg-8.6 Mg) 2 tab PO HS [facility] Last Admin: 09/14/18 21:56 Dose: 2 tab Sumatriptan Succinate (Imitrex Tab) 100 mg PO DAILY PRN Trimethoprim/Sulfamethoxazole (Bactrim Ds Tab) 1 tab PO Q12H [facility]; Protocol Last Admin: 09/14/18 21:55 Dose: 1 tab - Labs Labs: 09/10/18 07:10 09/10/18 07:10
--- NOTE | 2018-09-15 00:09 | CP.PCM.PN ---
Subjective - Date & Time of Evaluation Date of Evaluation: 09/13/18 Time of Evaluation: 08:25 - Subjective Subjective: Patient seen and evaluated No cardiac events noted Objective - Vital Signs/Intake and Output Vital Signs (last 24 hours): Temp Pulse Resp BP Pulse Ox 98.1 F 74 20 120/81 97 09/14/18 23:31 09/14/18 23:31 09/14/18 23:31 09/14/18 23:31 09/14/18 23:31 Intake and Output: 09/14/18 09/15/18 18:59 06:59 Intake Total 720 400 Balance 720 400 - Medications Medications: Current Medications Baclofen (Lioresal) 20 mg PO BID [facility] Last Admin: 09/14/18 18:00 Dose: 20 mg Ciprofloxacin (Cipro) 500 mg PO BID [facility]; Protocol Last Admin: 09/14/18 17:59 Dose: 500 mg Folic Acid (Folic Acid) 1 mg PO DAILY [facility] Last Admin: 09/14/18 11:20 Dose: 1 mg Guaifenesin (Mucinex La) 600 mg PO BID [facility] Last Admin: 09/14/18 17:59 Dose: 600 mg Hydroxychloroquine Sulfate (Plaquenil) 200 mg PO BID [facility] Last Admin: 09/14/18 17:59 Dose: 200 mg Nystatin (Nystatin Oral Susp) 5 ml PO QID [facility] Last Admin: 09/14/18 21:55 Dose: 5 ml Pantoprazole Sodium (Protonix Ec Tab) 40 mg PO DAILY PRN PRN Reason: GI distress Last Admin: 09/14/18 18:37 Dose: 40 mg Prednisone (Prednisone Tab) 20 mg PO DAILY [facility] Last Admin: 09/14/18 11:19 Dose: 20 mg Senna/Docusate Sodium (Senokot S 50 Mg-8.6 Mg) 2 tab PO HS [facility] Last Admin: 09/14/18 21:56 Dose: 2 tab Sumatriptan Succinate (Imitrex Tab) 100 mg PO DAILY PRN Trimethoprim/Sulfamethoxazole (Bactrim Ds Tab) 1 tab PO Q12H [facility]; Protocol Last Admin: 09/14/18 21:55 Dose: 1 tab - Labs Labs: 09/10/18 07:10 09/10/18 07:10
--- NOTE | 2018-09-15 00:10 | CP.PCM.PN ---
Subjective - Date & Time of Evaluation Date of Evaluation: 09/14/18 Time of Evaluation: 10:25 - Subjective Subjective: Patient seen and evaluated No cardiac events noted Objective - Vital Signs/Intake and Output Vital Signs (last 24 hours): Temp Pulse Resp BP Pulse Ox 98.1 F 74 20 120/81 97 09/14/18 23:31 09/14/18 23:31 09/14/18 23:31 09/14/18 23:31 09/14/18 23:31 Intake and Output: 09/14/18 09/15/18 18:59 06:59 Intake Total 720 400 Balance 720 400 - Medications Medications: Current Medications Baclofen (Lioresal) 20 mg PO BID [facility] Last Admin: 09/14/18 18:00 Dose: 20 mg Ciprofloxacin (Cipro) 500 mg PO BID [facility]; Protocol Last Admin: 09/14/18 17:59 Dose: 500 mg Folic Acid (Folic Acid) 1 mg PO DAILY [facility] Last Admin: 09/14/18 11:20 Dose: 1 mg Guaifenesin (Mucinex La) 600 mg PO BID [facility] Last Admin: 09/14/18 17:59 Dose: 600 mg Hydroxychloroquine Sulfate (Plaquenil) 200 mg PO BID [facility] Last Admin: 09/14/18 17:59 Dose: 200 mg Nystatin (Nystatin Oral Susp) 5 ml PO QID [facility] Last Admin: 09/14/18 21:55 Dose: 5 ml Pantoprazole Sodium (Protonix Ec Tab) 40 mg PO DAILY PRN PRN Reason: GI distress Last Admin: 09/14/18 18:37 Dose: 40 mg Prednisone (Prednisone Tab) 20 mg PO DAILY [facility] Last Admin: 09/14/18 11:19 Dose: 20 mg Senna/Docusate Sodium (Senokot S 50 Mg-8.6 Mg) 2 tab PO HS [facility] Last Admin: 09/14/18 21:56 Dose: 2 tab Sumatriptan Succinate (Imitrex Tab) 100 mg PO DAILY PRN Trimethoprim/Sulfamethoxazole (Bactrim Ds Tab) 1 tab PO Q12H [facility]; Protocol Last Admin: 09/14/18 21:55 Dose: 1 tab - Labs Labs: 09/10/18 07:10 09/10/18 07:10
[2018-09-15] MEDS: Tmp-Smz 800 mg-160 mg DS Tab PO SCH ×2 (08:11→22:06)
[2018-09-15] MEDS: Saccharomyces Boulardi 250 mg Cap PO SCH ×2 (10:30→18:00)
[2018-09-15] MEDS: Pantoprazole 40 mg EC Tab PO SCH (10:30)
[2018-09-15] MEDS: guaiFENesin 600 mg ER Tab PO SCH ×2 (10:30→18:00)
[2018-09-15] MEDS: Nystatin 100,000 Units/ml Oral Susp 5 ml UD PO SCH ×4 (10:33→22:05)
--- NOTE | 2018-09-15 10:51 | CP.PCM.PN ---
<Loida Oconnor - Last Filed: 09/15/18 14:21> Subjective - Date & Time of Evaluation Date of Evaluation: 09/15/18 Time of Evaluation: 10:49 - Subjective Subjective: Pulm Consult note for Dr. Morrell Patient appears less well today. She states she has become dizzy and lightheaded. She denies nausea or vomiting and states that her cough is better than yesterday. Afebrile. Remains on respiratory isolation. States her shortness of breath and cough continue to be managed well on nasal cannula. Antibiotics transitioned to PO due to infiltrative IV. Sputum culture grew pseudomonas fluorescens- S ciprofloxacin B-D- Glucan positive at 130 REGINO elevated at 73 CXR In 09/14 showed increased interstitial markings with patchy opacities on the right lung base and left lung mid and base but shows interval improvement. TB quantiferon gold- indeterminant, Histoplasmosis galactomannan antigen negative. ROS: patient admits to unproductive cough, SOB, dizziness and lightheadedness Patient denies fever, chills, chest pain, nausea, vomiting, diarrhea, weight loss, hemoptysis Objective - Vital Signs/Intake and Output Vital Signs (last 24 hours): Temp Pulse Resp BP Pulse Ox 97.2 F L 89 20 105/74 93 L 09/15/18 07:48 09/15/18 07:48 09/15/18 07:48 09/15/18 07:48 09/15/18 07:48 Intake and Output: 09/15/18 09/15/18 06:59 18:59 Intake Total 640 Balance 640 - Medications Medications: Current Medications Baclofen (Lioresal) 20 mg PO BID [facility] Last Admin: 09/15/18 10:33 Dose: 20 mg Ciprofloxacin (Cipro) 500 mg PO BID [facility]; Protocol Last Admin: 09/15/18 10:30 Dose: 500 mg Folic Acid (Folic Acid) 1 mg PO DAILY [facility] Last Admin: 09/15/18 10:30 Dose: 1 mg Guaifenesin (Mucinex La) 600 mg PO BID [facility] Last Admin: 09/15/18 10:30 Dose: 600 mg Hydroxychloroquine Sulfate (Plaquenil) 200 mg PO BID [facility] Last Admin: 09/15/18 10:30 Dose: 200 mg Nystatin (Nystatin Oral Susp) 5 ml PO QID [facility] Last Admin: 09/15/18 10:33 Dose: 5 ml Pantoprazole Sodium (Protonix Ec Tab) 40 mg PO DAILY [facility] Last Admin: 09/15/18 10:30 Dose: 40 mg Prednisone (Prednisone Tab) 20 mg PO DAILY [facility] Last Admin: 09/15/18 10:30 Dose: 20 mg Saccharomyces Boulardii (Florastor) 250 mg PO BID [facility] Last Admin: 09/15/18 10:30 Dose: 250 mg Senna/Docusate Sodium (Senokot S 50 Mg-8.6 Mg) 2 tab PO HS [facility] Last Admin: 09/14/18 21:56 Dose: 2 tab Sumatriptan Succinate (Imitrex Tab) 100 mg PO DAILY PRN Trimethoprim/Sulfamethoxazole (Bactrim Ds Tab) 1 tab PO Q12H [facility]; Protocol Last Admin: 09/15/18 08:11 Dose: 1 tab - Labs Labs: 09/10/18 07:10 09/10/18 07:10 - Constitutional Appears: Well, Non-toxic - Head Exam Head Exam: ATRAUMATIC, NORMOCEPHALIC - Eye Exam Eye Exam: Normal appearance - ENT Exam ENT Exam: Mucous Membranes Moist, Normal Exam - Neck Exam Neck Exam: Normal Inspection - Respiratory Exam Respiratory Exam: Clear to Ausculation Bilateral, NORMAL BREATHING PATTERN. absent: Rales, Rhonchi, Wheezes, Respiratory Distress - Cardiovascular Exam Cardiovascular Exam: REGULAR RHYTHM, +S1, +S2 - GI/Abdominal Exam GI & Abdominal Exam: Soft, Normal Bowel Sounds. absent: Tenderness - Rectal Exam Rectal Exam: NORMAL INSPECTION - Extremities Exam Extremities Exam: Normal Capillary Refill. absent: Calf Tenderness, Tenderness - Skin Skin Exam: Rash (bruises from IV's bilaterally) Assessment and Plan - Assessment and Plan (Free Text) Assessment: 43 year old female with PMHx of sarcoidosis, SLE, RA, Asthma on chronic steroid and humira therapy presenting with 1 month history of increased shortness of breath and cough. Plan: A: Pneumonia Sarcoidosis P: CXR shows increased interstial markings Continue ciprofloxacin, bactrim, ID rec lung Bx for TB v Asperigillus, v PCP, v non-infectious cause Aspregillus Ab, Ag ordered fungus smear/culture Fluconazole d/c'd transitioned to PO steroids D-B- glucan positive Histoplasm. Galactomannan negative Bronchoscopy with biopsy in AM. Previous lung biopsy done last year by Dr. Carmona was negative for noncaseating granuloma. Disposition: pending AM bronchoscopy with pulm team for culture and determining if patient has sarcoidosis <Sergo Morrell - Last Filed: 09/15/18 14:35> Objective - Vital Signs/Intake and Output Vital Signs (last 24 hours): Temp Pulse Resp BP Pulse Ox 97.2 F L 89 20 105/74 93 L 09/15/18 07:48 09/15/18 07:48 09/15/18 07:48 09/15/18 07:48 09/15/18 07:48 Intake and Output: 09/15/18 09/15/18 06:59 18:59 Intake Total 640 Balance 640 - Medications Medications: Current Medications Baclofen (Lioresal) 20 mg PO BID [facility] Last Admin: 09/15/18 10:33 Dose: 20 mg Ciprofloxacin (Cipro) 500 mg PO BID [facility]; Protocol Last Admin: 09/15/18 10:30 Dose: 500 mg Folic Acid (Folic Acid) 1 mg PO DAILY [facility] Last Admin: 09/15/18 10:30 Dose: 1 mg Guaifenesin (Mucinex La) 600 mg PO BID [facility] Last Admin: 09/15/18 10:30 Dose: 600 mg Hydroxychloroquine Sulfate (Plaquenil) 200 mg PO BID [facility] Last Admin: 09/15/18 10:30 Dose: 200 mg Nystatin (Nystatin Oral Susp) 5 ml PO QID [facility] Last Admin: 09/15/18 14:25 Dose: 5 ml Pantoprazole Sodium (Protonix Ec Tab) 40 mg PO DAILY [facility] Last Admin: 09/15/18 10:30 Dose: 40 mg Prednisone (Prednisone Tab) 20 mg PO DAILY [facility] Last Admin: 09/15/18 10:30 Dose: 20 mg Saccharomyces Boulardii (Florastor) 250 mg PO BID [facility] Last Admin: 09/15/18 10:30 Dose: 250 mg Senna/Docusate Sodium (Senokot S 50 Mg-8.6 Mg) 2 tab PO HS [facility] Last Admin: 09/14/18 21:56 Dose: 2 tab Sumatriptan Succinate (Imitrex Tab) 100 mg PO DAILY PRN Trimethoprim/Sulfamethoxazole (Bactrim Ds Tab) 1 tab PO Q12H [facility]; Protocol Last Admin: 09/15/18 08:11 Dose: 1 tab - Labs Labs: 09/10/18 07:10 09/10/18 07:10 Assessment and Plan (1) Respiratory distress Status: Acute (2) Rheumatoid aortitis Status: Acute (3) Systemic lupus Status: Acute Attending/Attestation - Attestation I have personally seen and examined this patient.: Yes I have fully participated in the care of the patient.: Yes I have reviewed all pertinent clinical information, including history, physical exam and plan: Yes Notes (Text): 09/15/18 14:34 Patient seen and examined Still having cough but overall condition better Bronchoscopy tomorrow with biopsy and possible EBUS Continue antibiotics as per infectious disease
--- NOTE | 2018-09-15 11:40 | CP.PCM.PN ---
<Mendez Trivedi - Last Filed: 09/15/18 11:38> Subjective - Date & Time of Evaluation Date of Evaluation: 09/15/18 Time of Evaluation: 11:38 - Subjective Subjective: Cardiology Progress Note for Dr. Blount Patient seen and examined at bedside. She reports dizziness and cough with productive sputum. SHe denies any fever, chest pain or palpitations. Her SOB has stayed the same. Objective - Vital Signs/Intake and Output Vital Signs (last 24 hours): Temp Pulse Resp BP Pulse Ox 97.2 F L 89 20 105/74 93 L 09/15/18 07:48 09/15/18 07:48 09/15/18 07:48 09/15/18 07:48 09/15/18 07:48 Intake and Output: 09/15/18 09/15/18 06:59 18:59 Intake Total 640 Balance 640 - Medications Medications: Current Medications Baclofen (Lioresal) 20 mg PO BID [facility] Last Admin: 09/15/18 10:33 Dose: 20 mg Ciprofloxacin (Cipro) 500 mg PO BID [facility]; Protocol Last Admin: 09/15/18 10:30 Dose: 500 mg Folic Acid (Folic Acid) 1 mg PO DAILY [facility] Last Admin: 09/15/18 10:30 Dose: 1 mg Guaifenesin (Mucinex La) 600 mg PO BID [facility] Last Admin: 09/15/18 10:30 Dose: 600 mg Hydroxychloroquine Sulfate (Plaquenil) 200 mg PO BID [facility] Last Admin: 09/15/18 10:30 Dose: 200 mg Nystatin (Nystatin Oral Susp) 5 ml PO QID [facility] Last Admin: 09/15/18 10:33 Dose: 5 ml Pantoprazole Sodium (Protonix Ec Tab) 40 mg PO DAILY [facility] Last Admin: 09/15/18 10:30 Dose: 40 mg Prednisone (Prednisone Tab) 20 mg PO DAILY [facility] Last Admin: 09/15/18 10:30 Dose: 20 mg Saccharomyces Boulardii (Florastor) 250 mg PO BID [facility] Last Admin: 09/15/18 10:30 Dose: 250 mg Senna/Docusate Sodium (Senokot S 50 Mg-8.6 Mg) 2 tab PO HS [facility] Last Admin: 09/14/18 21:56 Dose: 2 tab Sumatriptan Succinate (Imitrex Tab) 100 mg PO DAILY PRN Trimethoprim/Sulfamethoxazole (Bactrim Ds Tab) 1 tab PO Q12H [facility]; Protocol Last Admin: 09/15/18 08:11 Dose: 1 tab - Labs Labs: 09/10/18 07:10 09/10/18 07:10 - Additional Findings Additional findings: - Constitutional Appears: Well, Non-toxic, No Acute Distress - Head Exam Head Exam: ATRAUMATIC, NORMAL INSPECTION, NORMOCEPHALIC - Eye Exam Eye Exam: EOMI, Normal appearance - ENT Exam ENT Exam: Mucous Membranes Moist - Respiratory Exam Respiratory Exam: Rales (Mild, Left Sided (Improves with cough)). absent: Clear to Auscultation Bilateral - Cardiovascular Exam Cardiovascular Exam: +S1, +S2 Additional comments: +S3 Heart Sound - GI/Abdominal Exam GI & Abdominal Exam: Soft. absent: Tenderness - Extremities Exam Extremities exam: Negative for: pedal edema - Neurological Exam Neurological exam: Alert, Oriented x3 - Psychiatric Exam Psychiatric exam: Normal Affect, Normal Mood - Skin Skin Exam: Dry, Intact, Normal Color, Warm Assessment and Plan - Assessment and Plan (Free Text) Assessment: 43 year old female with PMHx of asthma, RA, SLE, sarcoidosis, and anemia who presented to the emergency room yesterday morning with worsening shortness of breath and cough for 1 month. Cardiology consulted for SOB. Plan: SOB 2/2 Rheumatoid Lung Disease/Sarcoidoisis/PNA. Likely not Cardiac Origin, but of Pulmonary Etiology Labs: BNP - Negative. Mgmt: Stress Test: Normal ECHO: Normal Systolic (EF 65-70%) and Diastolic Dysfunction. BNP - NEGATIVE. Dispo: Likely not Cardiac Origin. Cont. Medical management. Patient discussed with Dr. Jose Alejandro Trivedi, PGY-2 <Jason Blount - Last Filed: 09/15/18 23:32> Objective - Vital Signs/Intake and Output Vital Signs (last 24 hours): Temp Pulse Resp BP Pulse Ox 97.9 F 83 20 96/65 L 98 09/15/18 15:46 09/15/18 15:46 09/15/18 15:46 09/15/18 15:46 09/15/18 15:46 Intake and Output: 09/15/18 09/16/18 18:59 06:59 Intake Total 520 500 Balance 520 500 - Medications Medications: Current Medications Baclofen (Lioresal) 20 mg PO BID [facility] Last Admin: 09/15/18 18:00 Dose: 20 mg Ciprofloxacin (Cipro) 500 mg PO BID [facility]; Protocol Last Admin: 09/15/18 18:00 Dose: 500 mg Folic Acid (Folic Acid) 1 mg PO DAILY [facility] Last Admin: 09/15/18 10:30 Dose: 1 mg Guaifenesin (Mucinex La) 600 mg PO BID [facility] Last Admin: 09/15/18 18:00 Dose: 600 mg Hydroxychloroquine Sulfate (Plaquenil) 200 mg PO BID [facility] Last Admin: 09/15/18 18:00 Dose: 200 mg Nystatin (Nystatin Oral Susp) 5 ml PO QID [facility] Last Admin: 09/15/18 22:05 Dose: 5 ml Pantoprazole Sodium (Protonix Ec Tab) 40 mg PO DAILY [facility] Last Admin: 09/15/18 10:30 Dose: 40 mg Prednisone (Prednisone Tab) 20 mg PO DAILY [facility] Last Admin: 09/15/18 10:30 Dose: 20 mg Saccharomyces Boulardii (Florastor) 250 mg PO BID [facility] Last Admin: 09/15/18 18:00 Dose: 250 mg Senna/Docusate Sodium (Senokot S 50 Mg-8.6 Mg) 2 tab PO HS [facility] Last Admin: 09/15/18 22:06 Dose: 2 tab Sumatriptan Succinate (Imitrex Tab) 100 mg PO DAILY PRN Trimethoprim/Sulfamethoxazole (Bactrim Ds Tab) 1 tab PO Q12H [facility]; Protocol Last Admin: 09/15/18 22:06 Dose: 1 tab - Labs Labs: 09/15/18 17:23 09/15/18 20:31 Assessment and Plan - Assessment and Plan (Free Text) Plan: Patient seen and evaluated personally by me. Plan of care d/w the medical geneticist and as documented.
[2018-09-15 17:45] LABS: BASO # 0.1 K/uL (0.0-0.2); BASO % 0.5 % (0.0-2.0); EOS % 0.2 % (0.0-4.0); LYMPH # 1.3 K/uL (1.0-4.3); LYMPH % 10.3 % (20.0-40.0); MEAN CORPUSCULAR HEMOGLOBIN 27.7 pg (27.0-31.0); MEAN PLATELET VOLUME 7.4 fL (7.2-11.7); MONO # 0.3 K/uL (0.0-0.8); MONO % 2.2 % (0.0-10.0); NEUT # 11.1 K/uL (1.8-7.0); NEUT % 86.8 % (50.0-75.0); NRBC % 0.1 % (0.0-2.0); RBC 4.7 Mil/uL (3.80-5.20); RED CELL DISTRIBUTION WIDTH 16.5 % (11.5-14.5); WHITE BLOOD COUNT 12.8 K/uL (4.8-10.8)
[2018-09-15 18:02] LABS: ALB/GLOB RATIO 0.9 (1.0-2.1); ALBUMIN 3.9 g/dL (3.5-5.0); ALT/SGPT 92 U/L (9-52); AST/SGOT 50 U/L (14-36); BLOOD UREA NITROGEN 34 mg/dL (7-17); CALCIUM 9.4 mg/dl (8.6-10.4); GFR NON-AFRICAN AMERICAN > 60
[2018-09-15 21:04] LABS: ALB/GLOB RATIO 0.9 (1.0-2.1); ALBUMIN 3.8 g/dL (3.5-5.0); ALT/SGPT 89 U/L (9-52); AST/SGOT 44 U/L (14-36); BLOOD UREA NITROGEN 32 mg/dL (7-17); CALCIUM 9.3 mg/dl (8.6-10.4); GFR NON-AFRICAN AMERICAN > 60
--- NOTE | 2018-09-15 21:58 | CP.PCM.PN ---
Subjective - Date & Time of Evaluation Date of Evaluation: 09/15/18 Time of Evaluation: 18:50 - Subjective Subjective: patient not improved. Persistent cough and patient complains of recurrent dizziness today. patient on by mouth antibiotics do to IV infiltration repeat chest x-ray shows no improvement. Patient needs lung biopsy in the hopes of establishing a diagnosis. Objective - Vital Signs/Intake and Output Vital Signs (last 24 hours): Temp Pulse Resp BP Pulse Ox 97.9 F 83 20 96/65 L 98 09/15/18 15:46 09/15/18 15:46 09/15/18 15:46 09/15/18 15:46 09/15/18 15:46 Intake and Output: 09/15/18 09/16/18 18:59 06:59 Intake Total 520 Balance 520 - Medications Medications: Current Medications Baclofen (Lioresal) 20 mg PO BID [facility] Last Admin: 09/15/18 18:00 Dose: 20 mg Ciprofloxacin (Cipro) 500 mg PO BID [facility]; Protocol Last Admin: 09/15/18 18:00 Dose: 500 mg Folic Acid (Folic Acid) 1 mg PO DAILY [facility] Last Admin: 09/15/18 10:30 Dose: 1 mg Guaifenesin (Mucinex La) 600 mg PO BID [facility] Last Admin: 09/15/18 18:00 Dose: 600 mg Hydroxychloroquine Sulfate (Plaquenil) 200 mg PO BID [facility] Last Admin: 09/15/18 18:00 Dose: 200 mg Nystatin (Nystatin Oral Susp) 5 ml PO QID [facility] Last Admin: 09/15/18 17:59 Dose: 5 ml Pantoprazole Sodium (Protonix Ec Tab) 40 mg PO DAILY [facility] Last Admin: 09/15/18 10:30 Dose: 40 mg Prednisone (Prednisone Tab) 20 mg PO DAILY [facility] Last Admin: 09/15/18 10:30 Dose: 20 mg Saccharomyces Boulardii (Florastor) 250 mg PO BID [facility] Last Admin: 09/15/18 18:00 Dose: 250 mg Senna/Docusate Sodium (Senokot S 50 Mg-8.6 Mg) 2 tab PO HS [facility] Last Admin: 09/14/18 21:56 Dose: 2 tab Sumatriptan Succinate (Imitrex Tab) 100 mg PO DAILY PRN Trimethoprim/Sulfamethoxazole (Bactrim Ds Tab) 1 tab PO Q12H [facility]; Protocol Last Admin: 09/15/18 08:11 Dose: 1 tab - Labs Labs: 09/15/18 17:23 09/15/18 20:31 - Constitutional Appears: Chronically Ill - Head Exam Head Exam: NORMOCEPHALIC - Eye Exam Eye Exam: Normal appearance Pupil Exam: NORMAL ACCOMODATION - ENT Exam ENT Exam: Mucous Membranes Dry - Neck Exam Neck Exam: Normal Inspection - Respiratory Exam Respiratory Exam: Decreased Breath Sounds - Cardiovascular Exam Cardiovascular Exam: REGULAR RHYTHM - Rectal Exam Rectal Exam: Deferred - Extremities Exam Extremities Exam: Tenderness - Back Exam Back Exam: NORMAL INSPECTION - Neurological Exam Neurological Exam: Oriented x3 - Psychiatric Exam Psychiatric exam: Normal Mood - Skin Skin Exam: Dry Assessment and Plan (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
[2018-09-15] MEDS: Docusate-Senna 50 mg-8.6 mg Tab PO SCH (22:06)
--- NOTE | 2018-09-16 00:26 | CP.PCM.PN ---
Subjective - Date & Time of Evaluation Date of Evaluation: 09/16/18 Time of Evaluation: 07:40 - Subjective Subjective: dict Objective - Vital Signs/Intake and Output Vital Signs (last 24 hours): Temp Pulse Resp BP Pulse Ox 98.2 F 82 20 132/83 96 09/15/18 23:36 09/15/18 23:36 09/15/18 23:36 09/15/18 23:36 09/15/18 23:36 Intake and Output: 09/15/18 09/16/18 18:59 06:59 Intake Total 520 500 Balance 520 500 - Medications Medications: Current Medications Baclofen (Lioresal) 20 mg PO BID [facility] Last Admin: 09/15/18 18:00 Dose: 20 mg Ciprofloxacin (Cipro) 500 mg PO BID [facility]; Protocol Last Admin: 09/15/18 18:00 Dose: 500 mg Folic Acid (Folic Acid) 1 mg PO DAILY [facility] Last Admin: 09/15/18 10:30 Dose: 1 mg Guaifenesin (Mucinex La) 600 mg PO BID [facility] Last Admin: 09/15/18 18:00 Dose: 600 mg Hydroxychloroquine Sulfate (Plaquenil) 200 mg PO BID [facility] Last Admin: 09/15/18 18:00 Dose: 200 mg Nystatin (Nystatin Oral Susp) 5 ml PO QID [facility] Last Admin: 09/15/18 22:05 Dose: 5 ml Pantoprazole Sodium (Protonix Ec Tab) 40 mg PO DAILY [facility] Last Admin: 09/15/18 10:30 Dose: 40 mg Prednisone (Prednisone Tab) 20 mg PO DAILY [facility] Last Admin: 09/15/18 10:30 Dose: 20 mg Saccharomyces Boulardii (Florastor) 250 mg PO BID [facility] Last Admin: 09/15/18 18:00 Dose: 250 mg Senna/Docusate Sodium (Senokot S 50 Mg-8.6 Mg) 2 tab PO HS [facility] Last Admin: 09/15/18 22:06 Dose: 2 tab Sumatriptan Succinate (Imitrex Tab) 100 mg PO DAILY PRN Trimethoprim/Sulfamethoxazole (Bactrim Ds Tab) 1 tab PO Q12H [facility]; Protocol Last Admin: 09/15/18 22:06 Dose: 1 tab - Labs Labs: 09/15/18 17:23 09/15/18 20:31
--- NOTE | 2018-09-16 04:06 | PN ---
DATE: 09/15/2018 SUBJECTIVE: The patient's potassium was found to be 5.2. The patient is afebrile, less cough, less shortness of breath, less wheezing. She is on IV Bactrim. No fever. PHYSICAL EXAMINATION: VITAL SIGNS: Blood pressure 132/83, pulse 82, respiratory rate 22, temperature 98.2. LUNGS: Bilateral fine crepitations. They are improving though. CARDIOVASCULAR SYSTEM: S1 and S2, regular. ABDOMEN: Soft. ASSESSMENT: Pneumonia, most likely it is atypical pneumonia. It could be Pneumocystis carinii pneumonia versus Mycoplasma versus Legionella versus Chlamydia pneumoniae. PLAN: Continue IV antibiotics, on intubation. Elvin Hidalgo MD
[2018-09-16] MEDS ORDERED: Sodium Chloride 0.9% 0 ML IV ONE (07:46)
[2018-09-16] MEDS ORDERED: ePHEDrine 50 mg/ml Inj ONE (07:46)
[2018-09-16] MEDS ORDERED: Lidocaine 2% MPF (5 ml) Inj ONE (07:46)
[2018-09-16] MEDS ORDERED: Propofol 10 mg/ml Inj (20 ML) ONE (08:19)
[2018-09-16] MEDS ORDERED: Succinylcholine Chloride 20 mg/ml Syr (5 ml) IV ONE (08:19)
[2018-09-16] MEDS ORDERED: HYDROmorphone 0.5 mg/0.5 ml ISec IVP PRN (09:23)
[2018-09-16] MEDS: Tmp-Smz 800 mg-160 mg DS Tab PO SCH ×3 (10:00→22:00)
[2018-09-16] MEDS: Nystatin 100,000 Units/ml Oral Susp 5 ml UD PO SCH ×4 (10:15→22:00)
[2018-09-16] MEDS: guaiFENesin 600 mg ER Tab PO SCH ×2 (10:15→18:20)
[2018-09-16] MEDS: Saccharomyces Boulardi 250 mg Cap PO SCH ×2 (10:15→18:20)
[2018-09-16] MEDS: Pantoprazole 40 mg EC Tab PO SCH (10:15)
[2018-09-16 10:16] LABS: BASO % 0.2 % (0.0-2.0); EOS # 0.1 K/uL (0.0-0.7); EOS % 0.6 % (0.0-4.0); HEMOGLOBIN 12.7 g/dL (11.0-16.0); LYMPH # 2.6 K/uL (1.0-4.3); LYMPH % 17.9 % (20.0-40.0); MEAN CELL VOLUME 84.9 fL (81.0-99.0); MEAN CORPUSCULAR HEMOGLOBIN 28.3 pg (27.0-31.0); MEAN CORPUSCULAR HGB CONC 33.4 g/dL (33.0-37.0); MEAN PLATELET VOLUME 7.5 fL (7.2-11.7); MONO # 0.5 K/uL (0.0-0.8); MONO % 3.4 % (0.0-10.0); NEUT # 11.3 K/uL (1.8-7.0); NEUT % 77.9 % (50.0-75.0); RBC 4.5 Mil/uL (3.80-5.20); RED CELL DISTRIBUTION WIDTH 16.2 % (11.5-14.5); WHITE BLOOD COUNT 14.5 K/uL (4.8-10.8)
--- NOTE | 2018-09-16 10:38 | RAD ---
HISTORY: post-bronchoscopy COMPARISON: Chest x-ray performed 09/14/18 TECHNIQUE: Chest, one view. FINDINGS: Examination limited by habitus. LUNGS: Subtle infiltrates, bilateral lower lobes. Please note that chest x-ray has limited sensitivity for the detection of pulmonary masses. PLEURA: No significant pleural effusion identified. No definite pneumothorax . CARDIOVASCULAR: Heart size appears within normal limits. Atherosclerotic calcifications the aorta. OSSEOUS STRUCTURES: No acute osseous abnormality identified. VISUALIZED UPPER ABDOMEN: Unremarkable. OTHER FINDINGS: None. IMPRESSION: Subtle infiltrates bilateral lower lobes. No definite pneumothorax post bronchoscopy.
[2018-09-16 10:43] LABS: ALB/GLOB RATIO 0.9 (1.0-2.1); ALBUMIN 3.8 g/dL (3.5-5.0); ALT/SGPT 75 U/L (9-52); AST/SGOT 62 U/L (14-36); BLOOD UREA NITROGEN 32 mg/dL (7-17); CALCIUM 8.9 mg/dl (8.6-10.4); GFR NON-AFRICAN AMERICAN 54
--- NOTE | 2018-09-16 11:00 | CP.PCM.PN ---
<Mendez Trivedi - Last Filed: 09/16/18 11:24> Subjective - Date & Time of Evaluation Date of Evaluation: 09/16/18 Time of Evaluation: 10:58 - Subjective Subjective: Cardiology Progress Note for Dr. Blount Patient seen and examined at bedside. She reports dizziness and cough with productive sputum. SHe denies any fever, chest pain or palpitations. Her SOB has stayed the same. Objective - Vital Signs/Intake and Output Vital Signs (last 24 hours): Temp Pulse Resp BP Pulse Ox 98.2 F 69 20 116/77 95 09/16/18 09:19 09/16/18 10:15 09/16/18 07:41 09/16/18 10:15 09/16/18 07:41 Intake and Output: 09/16/18 09/16/18 06:59 18:59 Intake Total 500 500 Balance 500 500 - Medications Medications: Current Medications Baclofen (Lioresal) 20 mg PO BID [facility] Last Admin: 09/16/18 10:15 Dose: Not Given Ciprofloxacin (Cipro) 500 mg PO BID [facility]; Protocol Last Admin: 09/16/18 10:14 Dose: Not Given Folic Acid (Folic Acid) 1 mg PO DAILY [facility] Last Admin: 09/16/18 10:15 Dose: Not Given Guaifenesin (Mucinex La) 600 mg PO BID [facility] Last Admin: 09/16/18 10:15 Dose: Not Given Hydromorphone HCl (Dilaudid) 0.5 mg IVP Q15M PRN PRN Reason: Pain, moderate (4-7) Stop: 09/16/18 11:23 Hydroxychloroquine Sulfate (Plaquenil) 200 mg PO BID [facility] Last Admin: 09/16/18 10:15 Dose: Not Given Nystatin (Nystatin Oral Susp) 5 ml PO QID [facility] Last Admin: 09/16/18 10:15 Dose: Not Given Ondansetron HCl (Zofran Inj) 4 mg IVP ONCE PRN PRN Reason: Nausea/Vomiting Stop: 09/16/18 11:23 Last Admin: 09/16/18 09:30 Dose: 4 mg Pantoprazole Sodium (Protonix Ec Tab) 40 mg PO DAILY [facility] Last Admin: 09/16/18 10:15 Dose: Not Given Prednisone (Prednisone Tab) 20 mg PO DAILY [facility] Last Admin: 09/16/18 10:15 Dose: Not Given Saccharomyces Boulardii (Florastor) 250 mg PO BID [facility] Last Admin: 09/16/18 10:15 Dose: Not Given Senna/Docusate Sodium (Senokot S 50 Mg-8.6 Mg) 2 tab PO HS [facility] Last Admin: 09/15/18 22:06 Dose: 2 tab Sumatriptan Succinate (Imitrex Tab) 100 mg PO DAILY PRN Trimethoprim/Sulfamethoxazole (Bactrim Ds Tab) 1 tab PO Q12H [facility]; Protocol Last Admin: 09/15/18 22:06 Dose: 1 tab - Labs Labs: 09/16/18 09:54 09/16/18 09:54 - Additional Findings Additional findings: - Constitutional Appears: Well, Non-toxic, No Acute Distress - Head Exam Head Exam: ATRAUMATIC, NORMAL INSPECTION, NORMOCEPHALIC - Eye Exam Eye Exam: EOMI, Normal appearance - ENT Exam ENT Exam: Mucous Membranes Moist - Respiratory Exam Respiratory Exam: Rales (Mild, Left Sided (Improves with cough)). absent: Clear to Auscultation Bilateral - Cardiovascular Exam Cardiovascular Exam: +S1, +S2 Additional comments: +S3 Heart Sound - GI/Abdominal Exam GI & Abdominal Exam: Soft. absent: Tenderness - Extremities Exam Extremities exam: Negative for: pedal edema - Neurological Exam Neurological exam: Alert, Oriented x3 - Psychiatric Exam Psychiatric exam: Normal Affect, Normal Mood - Skin Skin Exam: Dry, Intact, Normal Color, Warm Assessment and Plan - Assessment and Plan (Free Text) Assessment: 43 year old female with PMHx of asthma, RA, SLE, sarcoidosis, and anemia who presented to the emergency room yesterday morning with worsening shortness of breath and cough for 1 month. Cardiology consulted for SOB. Plan: SOB 2/2 Rheumatoid Lung Disease/Sarcoidoisis/PNA. Likely not Cardiac Origin, but of Pulmonary Etiology Labs: BNP - Negative. Mgmt: Stress Test: Normal ECHO: Normal Systolic (EF 65-70%) and Diastolic Dysfunction. BNP - NEGATIVE. Dispo: Likely not Cardiac Origin. Cont. Medical management. Patient discussed with Dr. Jose Alejandro Trivedi, PGY-2 <Jason Blount - Last Filed: 09/16/18 20:17> Objective - Vital Signs/Intake and Output Vital Signs (last 24 hours): Temp Pulse Resp BP Pulse Ox 98.3 F 83 20 108/74 95 09/16/18 16:03 09/16/18 16:03 09/16/18 16:03 09/16/18 16:03 09/16/18 16:03 Intake and Output: 09/16/18 09/17/18 18:59 06:59 Intake Total 1300 Balance 1300 - Medications Medications: Current Medications Baclofen (Lioresal) 20 mg PO BID [facility] Last Admin: 09/16/18 18:20 Dose: 20 mg Ciprofloxacin (Cipro) 500 mg PO BID [facility]; Protocol Last Admin: 09/16/18 18:18 Dose: 500 mg Folic Acid (Folic Acid) 1 mg PO DAILY [facility] Last Admin: 09/16/18 10:15 Dose: Not Given Guaifenesin (Mucinex La) 600 mg PO BID [facility] Last Admin: 09/16/18 18:20 Dose: 600 mg Hydroxychloroquine Sulfate (Plaquenil) 200 mg PO BID [facility] Last Admin: 09/16/18 18:19 Dose: 200 mg Nystatin (Nystatin Oral Susp) 5 ml PO QID [facility] Last Admin: 09/16/18 18:17 Dose: 5 ml Ondansetron HCl (Zofran Inj) 4 mg IVP Q4H PRN PRN Reason: Nausea/Vomiting Pantoprazole Sodium (Protonix Ec Tab) 40 mg PO DAILY [facility] Last Admin: 09/16/18 10:15 Dose: Not Given Prednisone (Prednisone Tab) 20 mg PO DAILY [facility] Last Admin: 09/16/18 10:15 Dose: Not Given Saccharomyces Boulardii (Florastor) 250 mg PO BID [facility] Last Admin: 09/16/18 18:20 Dose: 250 mg Senna/Docusate Sodium (Senokot S 50 Mg-8.6 Mg) 2 tab PO HS [facility] Last Admin: 09/15/18 22:06 Dose: 2 tab Sumatriptan Succinate (Imitrex Tab) 100 mg PO DAILY PRN Trimethoprim/Sulfamethoxazole (Bactrim Ds Tab) 1 tab PO Q12H [facility]; Protocol Last Admin: 09/16/18 12:28 Dose: 1 tab - Labs Labs: 09/16/18 09:54 09/16/18 09:54 Assessment and Plan - Assessment and Plan (Free Text) Plan: Patient seen and evaluated personally by me. Plan of care d/w the medical surgical tech and as documented
--- NOTE | 2018-09-16 11:08 | CP.PCM.PN ---
<Loida Oconnor - Last Filed: 09/16/18 11:05> Subjective - Date & Time of Evaluation Date of Evaluation: 09/16/18 Time of Evaluation: 11:06 - Subjective Subjective: Pulm Progress Note for Dr. Morrell's service S/E at bedside. Episodes of vomiting reported. S/P bronch with repeat cxr similar from recent prior study. Objective - Vital Signs/Intake and Output Vital Signs (last 24 hours): Temp Pulse Resp BP Pulse Ox 98.2 F 69 20 116/77 95 09/16/18 09:19 09/16/18 10:15 09/16/18 07:41 09/16/18 10:15 09/16/18 07:41 Intake and Output: 09/16/18 09/16/18 06:59 18:59 Intake Total 500 500 Balance 500 500 - Medications Medications: Current Medications Baclofen (Lioresal) 20 mg PO BID [facility] Last Admin: 09/16/18 10:15 Dose: Not Given Ciprofloxacin (Cipro) 500 mg PO BID [facility]; Protocol Last Admin: 09/16/18 10:14 Dose: Not Given Folic Acid (Folic Acid) 1 mg PO DAILY [facility] Last Admin: 09/16/18 10:15 Dose: Not Given Guaifenesin (Mucinex La) 600 mg PO BID [facility] Last Admin: 09/16/18 10:15 Dose: Not Given Hydromorphone HCl (Dilaudid) 0.5 mg IVP Q15M PRN PRN Reason: Pain, moderate (4-7) Stop: 09/16/18 11:23 Hydroxychloroquine Sulfate (Plaquenil) 200 mg PO BID [facility] Last Admin: 09/16/18 10:15 Dose: Not Given Nystatin (Nystatin Oral Susp) 5 ml PO QID [facility] Last Admin: 09/16/18 10:15 Dose: Not Given Ondansetron HCl (Zofran Inj) 4 mg IVP ONCE PRN PRN Reason: Nausea/Vomiting Stop: 09/16/18 11:23 Last Admin: 09/16/18 09:30 Dose: 4 mg Pantoprazole Sodium (Protonix Ec Tab) 40 mg PO DAILY [facility] Last Admin: 09/16/18 10:15 Dose: Not Given Prednisone (Prednisone Tab) 20 mg PO DAILY [facility] Last Admin: 09/16/18 10:15 Dose: Not Given Saccharomyces Boulardii (Florastor) 250 mg PO BID [facility] Last Admin: 09/16/18 10:15 Dose: Not Given Senna/Docusate Sodium (Senokot S 50 Mg-8.6 Mg) 2 tab PO HS [facility] Last Admin: 09/15/18 22:06 Dose: 2 tab Sumatriptan Succinate (Imitrex Tab) 100 mg PO DAILY PRN Trimethoprim/Sulfamethoxazole (Bactrim Ds Tab) 1 tab PO Q12H [facility]; Protocol Last Admin: 09/15/18 22:06 Dose: 1 tab - Labs Labs: 09/16/18 09:54 09/16/18 09:54 - Constitutional Appears: Non-toxic, No Acute Distress - Head Exam Head Exam: NORMAL INSPECTION - Eye Exam Eye Exam: EOMI - ENT Exam ENT Exam: Mucous Membranes Dry - Respiratory Exam Respiratory Exam: NORMAL BREATHING PATTERN. absent: Rales, Rhonchi, Wheezes, Respiratory Distress - Cardiovascular Exam Cardiovascular Exam: REGULAR RHYTHM, +S1, +S2 - GI/Abdominal Exam GI & Abdominal Exam: Soft, Normal Bowel Sounds. absent: Tenderness - Neurological Exam Neurological Exam: Alert, Awake - Skin Skin Exam: Intact, Normal Color Assessment and Plan - Assessment and Plan (Free Text) Plan: A: Bacterial PNA Fungal infection of lungs Leukocytosis Hyponatremia Hx of Lupus P: Continue bactrim and cipro; positive cx for pseudomonas pending further aspergillosis studies; positive 1-3 d glucan study; likely bacterial pna with co-infection of fungal s/p bronchoscopy for fungal studies and rule out sarcoidosis due to elevated REGINO - level low sodium related to episodes of vomiting; up-trending; will hydrate w/NS if patient unable to tolerate oral intake; zofran PRN steroid use can be attributed to leukocytosis agree with lupus management with hydroxychloroquinine further management as per primary dispo: pending bronch results to r/o fungal infection vs sarcoid; monitor daily labs, continue iv abx for bacterial pna with positive cx; chronic condition management as per primary/rheum PGY-1 Loida Oconnor Case d/w Dr. Morrell <Sergo Morrell - Last Filed: 09/16/18 17:38> Objective - Vital Signs/Intake and Output Vital Signs (last 24 hours): Temp Pulse Resp BP Pulse Ox 98.3 F 83 20 108/74 95 09/16/18 16:03 09/16/18 16:03 09/16/18 16:03 09/16/18 16:03 09/16/18 16:03 Intake and Output: 09/16/18 09/16/18 06:59 18:59 Intake Total 500 1300 Balance 500 1300 - Medications Medications: Current Medications Baclofen (Lioresal) 20 mg PO BID [facility] Last Admin: 09/16/18 10:15 Dose: Not Given Ciprofloxacin (Cipro) 500 mg PO BID [facility]; Protocol Last Admin: 09/16/18 10:14 Dose: Not Given Folic Acid (Folic Acid) 1 mg PO DAILY [facility] Last Admin: 09/16/18 10:15 Dose: Not Given Guaifenesin (Mucinex La) 600 mg PO BID [facility] Last Admin: 09/16/18 10:15 Dose: Not Given Hydroxychloroquine Sulfate (Plaquenil) 200 mg PO BID [facility] Last Admin: 09/16/18 10:15 Dose: Not Given Nystatin (Nystatin Oral Susp) 5 ml PO QID [facility] Last Admin: 09/16/18 14:34 Dose: 5 ml Ondansetron HCl (Zofran Inj) 4 mg IVP Q4H PRN PRN Reason: Nausea/Vomiting Pantoprazole Sodium (Protonix Ec Tab) 40 mg PO DAILY [facility] Last Admin: 09/16/18 10:15 Dose: Not Given Prednisone (Prednisone Tab) 20 mg PO DAILY [facility] Last Admin: 09/16/18 10:15 Dose: Not Given Saccharomyces Boulardii (Florastor) 250 mg PO BID [facility] Last Admin: 09/16/18 10:15 Dose: Not Given Senna/Docusate Sodium (Senokot S 50 Mg-8.6 Mg) 2 tab PO HS [facility] Last Admin: 09/15/18 22:06 Dose: 2 tab Sumatriptan Succinate (Imitrex Tab) 100 mg PO DAILY PRN Trimethoprim/Sulfamethoxazole (Bactrim Ds Tab) 1 tab PO Q12H [facility]; Protocol Last Admin: 09/16/18 12:28 Dose: 1 tab - Labs Labs: 09/16/18 09:54 09/16/18 09:54 Assessment and Plan (1) Respiratory distress Status: Acute (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
--- NOTE | 2018-09-16 16:39 | RAD ---
Date of service: 09/16/2018 PROCEDURE: Intraoperative Fluoroscopy. HISTORY: BILAT LUNG INFILTRATE FINDINGS: Fluoroscopic assistance was provided for bronchoscopy. Total fluoroscopic time (continuous mode) utilized during the procedure 38.9 seconds. Dose report: DLP [phone] (mGy/m2) Please refer to the operative report from [facility].
[2018-09-16] MEDS: Docusate-Senna 50 mg-8.6 mg Tab PO SCH (22:00)
--- NOTE | 2018-09-16 22:24 | CP.PCM.PN ---
Subjective - Date & Time of Evaluation Date of Evaluation: 09/16/18 Time of Evaluation: 22:24 - Subjective Subjective: EVENTS NOTED. S/P FOB AND BX TODAY 09/16/18. +VE EPISODE OF VOMITING TODAY. VSS. +VE COUGH LABS: LFTS ; AST 62, ALT 75 AP 68 BX LUNG 12/03/[address] CINTRON NONSPECIFIC -ACUTE/CHRONIC INFLAMATION. -VE FOR MALIGNANCY HISTO. GLACTOMANNAN AG -VE BETA(1,3 ) -D GUCAN AG +VE 130. ( NONSPECIFIC- FALSE +VE VS ? FUNGAL ) QUANTIFERON GOLD B TEST- INDETERMINATE. SPUTUM +VE pSEUDOMONAS FLUORESCENCE S- CIPRO.. SPUTUM AFB -VE SMEARS AFB X3 ANGIOTENSIN CONVERTING ENZYME 73 U/L HIGH. ( N 9-67 U/L ) Objective - Vital Signs/Intake and Output Vital Signs (last 24 hours): Temp Pulse Resp BP Pulse Ox 98.3 F 83 20 108/74 95 09/16/18 16:03 09/16/18 16:03 09/16/18 16:03 09/16/18 16:03 09/16/18 16:03 Intake and Output: 09/16/18 09/17/18 18:59 06:59 Intake Total 1300 Balance 1300 - Medications Medications: Current Medications Baclofen (Lioresal) 20 mg PO BID [facility] Last Admin: 09/16/18 18:20 Dose: 20 mg Ciprofloxacin (Cipro) 500 mg PO BID [facility]; Protocol Last Admin: 09/16/18 18:18 Dose: 500 mg Folic Acid (Folic Acid) 1 mg PO DAILY [facility] Last Admin: 09/16/18 10:15 Dose: Not Given Guaifenesin (Mucinex La) 600 mg PO BID [facility] Last Admin: 09/16/18 18:20 Dose: 600 mg Hydroxychloroquine Sulfate (Plaquenil) 200 mg PO BID [facility] Last Admin: 09/16/18 18:19 Dose: 200 mg Nystatin (Nystatin Oral Susp) 5 ml PO QID [facility] Last Admin: 09/16/18 22:00 Dose: 5 ml Ondansetron HCl (Zofran Inj) 4 mg IVP Q4H PRN PRN Reason: Nausea/Vomiting Pantoprazole Sodium (Protonix Ec Tab) 40 mg PO DAILY [facility] Last Admin: 09/16/18 10:15 Dose: Not Given Prednisone (Prednisone Tab) 20 mg PO DAILY [facility] Last Admin: 09/16/18 10:15 Dose: Not Given Saccharomyces Boulardii (Florastor) 250 mg PO BID [facility] Last Admin: 09/16/18 18:20 Dose: 250 mg Senna/Docusate Sodium (Senokot S 50 Mg-8.6 Mg) 2 tab PO HS [facility] Last Admin: 09/16/18 22:00 Dose: 2 tab Sumatriptan Succinate (Imitrex Tab) 100 mg PO DAILY PRN Trimethoprim/Sulfamethoxazole (Bactrim Ds Tab) 1 tab PO Q12H [facility]; Protocol Last Admin: 09/16/18 22:00 Dose: 1 tab - Labs Labs: 09/16/18 09:54 09/16/18 09:54 - Constitutional Appears: No Acute Distress - Head Exam Head Exam: NORMAL INSPECTION - Eye Exam Eye Exam: EOMI, PERRL - ENT Exam ENT Exam: Normal Oropharynx - Neck Exam Neck Exam: Normal Inspection - Respiratory Exam Respiratory Exam: Rales, Rhonchi, NORMAL BREATHING PATTERN - Cardiovascular Exam Cardiovascular Exam: REGULAR RHYTHM, +S1, +S2 - GI/Abdominal Exam GI & Abdominal Exam: Soft, Normal Bowel Sounds - Extremities Exam Extremities Exam: Normal Capillary Refill. 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 09/12/18. CONTINUE PO BACTRIM I DS EVERY 12 HOURLY. NYSTATIN PO SWISH/ SWALLOW QID PT ON STEROIDS TB- SPOT TEST FOR CONFIRMATION FOR LATENT TB IN PROGRESS SPUTUM FOR FUNGUS-SMEAR AND CULTURE PENDING. PT S/O FOB AND BX .FOLLOW-UP BIOPSY/ BAL FOR AFB, PCP FUNGAL, VIRAL INCLUSION BODIES WITH SPECIAL STAINS. DISCUSSED WITH THE RESIDENT. PER CONSULTANTS.
--- NOTE | 2018-09-17 00:50 | CP.PCM.PN ---
Subjective - Date & Time of Evaluation Date of Evaluation: 09/16/18 Time of Evaluation: 07:00 - Subjective Subjective: dict Objective - Vital Signs/Intake and Output Vital Signs (last 24 hours): Temp Pulse Resp BP Pulse Ox 98.1 F 83 20 108/72 97 09/16/18 23:40 09/16/18 23:40 09/16/18 23:40 09/16/18 23:40 09/16/18 23:40 Intake and Output: 09/16/18 09/17/18 18:59 06:59 Intake Total 1300 350 Balance 1300 350 - Medications Medications: Current Medications Baclofen (Lioresal) 20 mg PO BID [facility] Last Admin: 09/16/18 18:20 Dose: 20 mg Ciprofloxacin (Cipro) 500 mg PO BID [facility]; Protocol Last Admin: 09/16/18 18:18 Dose: 500 mg Folic Acid (Folic Acid) 1 mg PO DAILY [facility] Last Admin: 09/16/18 10:15 Dose: Not Given Guaifenesin (Mucinex La) 600 mg PO BID [facility] Last Admin: 09/16/18 18:20 Dose: 600 mg Hydroxychloroquine Sulfate (Plaquenil) 200 mg PO BID [facility] Last Admin: 09/16/18 18:19 Dose: 200 mg Lactulose (Enulose) 20 gm PO HS PRN PRN Reason: Constipation Nystatin (Nystatin Oral Susp) 5 ml PO QID [facility] Last Admin: 09/16/18 22:00 Dose: 5 ml Ondansetron HCl (Zofran Inj) 4 mg IVP Q4H PRN PRN Reason: Nausea/Vomiting Pantoprazole Sodium (Protonix Ec Tab) 40 mg PO DAILY [facility] Last Admin: 09/16/18 10:15 Dose: Not Given Prednisone (Prednisone Tab) 20 mg PO DAILY [facility] Last Admin: 09/16/18 10:15 Dose: Not Given Saccharomyces Boulardii (Florastor) 250 mg PO BID [facility] Last Admin: 09/16/18 18:20 Dose: 250 mg Senna/Docusate Sodium (Senokot S 50 Mg-8.6 Mg) 2 tab PO HS [facility] Last Admin: 09/16/18 22:00 Dose: 2 tab Sumatriptan Succinate (Imitrex Tab) 100 mg PO DAILY PRN Trimethoprim/Sulfamethoxazole (Bactrim Ds Tab) 1 tab PO Q12H [facility]; Protocol Last Admin: 09/16/18 22:00 Dose: 1 tab - Labs Labs: 09/16/18 09:54 09/16/18 09:54
--- NOTE | 2018-09-17 04:37 | PN ---
DATE: 09/17/2018 SUBJECTIVE: The patient is feeling better, less cough, less shortness of breath, less wheezing. The patient denies any nausea or vomiting. The patient's potassium was high yesterday, and now it is down to normal. PHYSICAL EXAMINATION: VITAL SIGNS: Blood pressure 108/72, pulse 83, respiratory rate 20, temperature 98.1. LUNGS: Bilateral scattered rales. CARDIOVASCULAR SYSTEM: S1 and S2, regular. ABDOMEN: Soft. ASSESSMENT: 1. Pneumonia. 2. Rheumatoid arthritis. 3. Asthma. PLAN: Continue current medication. Monitor the patient. Elvin Hidalgo MD
[2018-09-17 07:37] LABS: BASO % 0.1 % (0.0-2.0); EOS # 0.1 K/uL (0.0-0.7); EOS % 1.5 % (0.0-4.0); HEMOGLOBIN 12.2 g/dL (11.0-16.0); LYMPH # 1.9 K/uL (1.0-4.3); MEAN CELL VOLUME 86.2 fL (81.0-99.0); MEAN CORPUSCULAR HEMOGLOBIN 29.5 pg (27.0-31.0); MEAN CORPUSCULAR HGB CONC 34.3 g/dL (33.0-37.0); MEAN PLATELET VOLUME 7.7 fL (7.2-11.7); MONO # 0.3 K/uL (0.0-0.8); MONO % 3.1 % (0.0-10.0); NEUT # 5.9 K/uL (1.8-7.0); NEUT % 72.3 % (50.0-75.0); NRBC % 0.1 % (0.0-2.0); RBC 4.14 Mil/uL (3.80-5.20); RED CELL DISTRIBUTION WIDTH 16.2 % (11.5-14.5); WHITE BLOOD COUNT 8.1 K/uL (4.8-10.8)
[2018-09-17 07:50] LABS: ALBUMIN 3.6 g/dL (3.5-5.0); ALT/SGPT 64 U/L (9-52); AST/SGOT 47 U/L (14-36); BLOOD UREA NITROGEN 24 mg/dL (7-17); CALCIUM 8.6 mg/dl (8.6-10.4); GFR NON-AFRICAN AMERICAN > 60
[2018-09-17] MEDS: Tmp-Smz 800 mg-160 mg DS Tab PO SCH ×2 (08:58→21:12)
[2018-09-17] MEDS: guaiFENesin 600 mg ER Tab PO SCH ×2 (09:01→17:10)
[2018-09-17] MEDS: Pantoprazole 40 mg EC Tab PO SCH (09:01)
[2018-09-17] MEDS: Saccharomyces Boulardi 250 mg Cap PO SCH ×2 (09:01→17:10)
[2018-09-17] MEDS: Nystatin 100,000 Units/ml Oral Susp 5 ml UD PO SCH ×4 (09:02→21:12)
--- NOTE | 2018-09-17 10:19 | OP ---
PROCEDURE DATE: 09/16/2018 PROCEDURES PERFORMED: Fiberoptic bronchoscopy, biopsy, and endobronchial ultrasound biopsy. DESCRIPTION OF PROCEDURE: After obtaining consent from the patient, explaining the patient's risks and benefits which he understood, the procedure was done. After the patient was intubated by the anesthesiologist, the bronchoscope was passed through the endotracheal tube into the trachea. The main laurent was sharp with a bronchoscope passing the left side, the left main, the left upper, the left lower, all appeared normal. Later, the bronchoscope was pulled back and passed on the right side. The right main, right upper, and all appeared normal. The bronchoscope was pulled out after which the endobronchial ultrasound was passed and a biopsy was done at station 4 on the right side without any complications. Later, the regular bronchoscope was passed and multiple biopsies done of the right lower lobe and bronchoalveolar lavage done from right middle lobe. The patient tolerated the procedure well. No complications. Sergo Morrell MD
--- NOTE | 2018-09-17 10:26 | CP.PCM.PN ---
<Loida Oconnor - Last Filed: 09/17/18 10:22> Subjective - Date & Time of Evaluation Date of Evaluation: 09/17/18 Time of Evaluation: 10:22 - Subjective Subjective: Pulm Progress Note for Dr. Morrell's service S/E at bedside Cx improvement in cough, fatigue no episodes of vomiting reported today Denies f/c, cp, sob, n/v, constipation or diarrhea, and dysuria. Objective - Vital Signs/Intake and Output Vital Signs (last 24 hours): Temp Pulse Resp BP Pulse Ox 98.1 F 79 20 103/68 95 09/17/18 07:22 09/17/18 07:22 09/17/18 07:22 09/17/18 07:22 09/17/18 07:22 Intake and Output: 09/17/18 09/17/18 06:59 18:59 Intake Total 750 Balance 750 - Medications Medications: Current Medications Baclofen (Lioresal) 20 mg PO BID [facility] Last Admin: 09/17/18 09:02 Dose: 20 mg Bisacodyl (Dulcolax) 10 mg PO ONCE ONE Stop: 09/17/18 10:31 Ciprofloxacin (Cipro) 500 mg PO BID [facility]; Protocol Last Admin: 09/17/18 09:01 Dose: 500 mg Folic Acid (Folic Acid) 1 mg PO DAILY [facility] Last Admin: 09/17/18 09:01 Dose: 1 mg Guaifenesin (Mucinex La) 600 mg PO BID [facility] Last Admin: 09/17/18 09:01 Dose: 600 mg Hydroxychloroquine Sulfate (Plaquenil) 200 mg PO BID [facility] Last Admin: 09/17/18 09:02 Dose: 200 mg Lactulose (Enulose) 20 gm PO HS PRN PRN Reason: Constipation Nystatin (Nystatin Oral Susp) 5 ml PO QID [facility] Last Admin: 09/17/18 09:02 Dose: 5 ml Ondansetron HCl (Zofran Inj) 4 mg IVP Q4H PRN PRN Reason: Nausea/Vomiting Pantoprazole Sodium (Protonix Ec Tab) 40 mg PO DAILY [facility] Last Admin: 09/17/18 09:01 Dose: 40 mg Prednisone (Prednisone Tab) 20 mg PO DAILY [facility] Last Admin: 09/17/18 09:03 Dose: 20 mg Saccharomyces Boulardii (Florastor) 250 mg PO BID [facility] Last Admin: 09/17/18 09:01 Dose: 250 mg Senna/Docusate Sodium (Senokot S 50 Mg-8.6 Mg) 2 tab PO HS [facility] Last Admin: 09/16/18 22:00 Dose: 2 tab Sumatriptan Succinate (Imitrex Tab) 100 mg PO DAILY PRN Trimethoprim/Sulfamethoxazole (Bactrim Ds Tab) 1 tab PO Q12H [facility]; Protocol Last Admin: 09/17/18 08:58 Dose: 1 tab - Labs Labs: 09/17/18 07:11 09/17/18 07:11 - Constitutional Appears: Non-toxic, No Acute Distress - Head Exam Head Exam: NORMAL INSPECTION, NORMOCEPHALIC - Eye Exam Eye Exam: EOMI, Normal appearance - ENT Exam ENT Exam: Mucous Membranes Moist - Respiratory Exam Respiratory Exam: Clear to Ausculation Bilateral, NORMAL BREATHING PATTERN - Cardiovascular Exam Cardiovascular Exam: REGULAR RHYTHM, +S1, +S2 - GI/Abdominal Exam GI & Abdominal Exam: Soft, Normal Bowel Sounds. absent: Distended, Firm, Tenderness - Extremities Exam Extremities Exam: Normal Inspection. absent: Pedal Edema - Neurological Exam Neurological Exam: Awake, Oriented x3 - Psychiatric Exam Psychiatric exam: Normal Affect, Normal Mood - Skin Skin Exam: Dry, Intact, Normal Color Assessment and Plan - Assessment and Plan (Free Text) Assessment: A: Bacterial PNA Fungal infection of lungs Leukocytosis Hyponatremia Hx of Lupus P: Continue bactrim and cipro; positive cx for pseudomonas positive 1-3 d glucan study; likely bacterial pna with co-infection of fungal?; can be false positive bronchoscopy studies all negative including fungal and bacterial cx; pending biospy results low sodium related to episodes of vomiting; up-trending; NS x 1 500ml @ 80mls/hr repeat bmp pending likely hypovolemic hyponatremia; zofran PRN no leukocytosis, continue oral abx upon discharge agree with lupus management with hydroxychloroquinine further management as per primary dispo: pending biopsy of bronchoscopy tissue to confirm that gram stain and fungal cx are negative truly; continue current treatment PGY-1 Loida Oconnor Case d/w Dr. Morrell <Sergo Morrell - Last Filed: 09/17/18 14:22> Objective - Vital Signs/Intake and Output Vital Signs (last 24 hours): Temp Pulse Resp BP Pulse Ox 98.1 F 79 20 103/68 95 09/17/18 07:22 09/17/18 07:22 09/17/18 07:22 09/17/18 07:22 09/17/18 07:22 Intake and Output: 09/17/18 09/17/18 06:59 18:59 Intake Total 750 Balance 750 - Medications Medications: Current Medications Baclofen (Lioresal) 20 mg PO BID [facility] Last Admin: 09/17/18 09:02 Dose: 20 mg Ciprofloxacin (Cipro) 500 mg PO BID [facility]; Protocol Last Admin: 09/17/18 09:01 Dose: 500 mg Folic Acid (Folic Acid) 1 mg PO DAILY [facility] Last Admin: 09/17/18 09:01 Dose: 1 mg Guaifenesin (Mucinex La) 600 mg PO BID [facility] Last Admin: 09/17/18 09:01 Dose: 600 mg Hydroxychloroquine Sulfate (Plaquenil) 200 mg PO BID [facility] Last Admin: 09/17/18 09:02 Dose: 200 mg Sodium Chloride (Sodium Chloride 0.9%) 500 mls @ 80 mls/hr IV .Q6H15M [facility] Last Admin: 09/17/18 11:30 Dose: Not Given Lactulose (Enulose) 20 gm PO HS PRN PRN Reason: Constipation Nystatin (Nystatin Oral Susp) 5 ml PO QID [facility] Last Admin: 09/17/18 09:02 Dose: 5 ml Ondansetron HCl (Zofran Inj) 4 mg IVP Q4H PRN PRN Reason: Nausea/Vomiting Pantoprazole Sodium (Protonix Ec Tab) 40 mg PO DAILY [facility] Last Admin: 09/17/18 09:01 Dose: 40 mg Prednisone (Prednisone Tab) 20 mg PO DAILY [facility] Last Admin: 09/17/18 09:03 Dose: 20 mg Saccharomyces Boulardii (Florastor) 250 mg PO BID [facility] Last Admin: 09/17/18 09:01 Dose: 250 mg Senna/Docusate Sodium (Senokot S 50 Mg-8.6 Mg) 2 tab PO HS [facility] Last Admin: 09/16/18 22:00 Dose: 2 tab Sumatriptan Succinate (Imitrex Tab) 100 mg PO DAILY PRN Trimethoprim/Sulfamethoxazole (Bactrim Ds Tab) 1 tab PO Q12H [facility]; Protocol Last Admin: 09/17/18 08:58 Dose: 1 tab - Labs Labs: 09/17/18 07:11 09/17/18 07:11 Assessment and Plan (1) Respiratory distress Status: Acute (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
[2018-09-17] MEDS ORDERED: Bisacodyl 5mg EC Tab PO ONE (10:30)
[2018-09-17] MEDS: Sodium Chloride 0.9% 500 ML IV SCH ×3 (11:30→23:19)
--- NOTE | 2018-09-17 12:43 | CP.PCM.PN ---
<Mendez Trivedi - Last Filed: 09/17/18 13:26> Subjective - Date & Time of Evaluation Date of Evaluation: 09/17/18 Time of Evaluation: 12:40 - Subjective Subjective: Cardiology Progress Note for Dr. Blount Patient seen and examined at bedside. Still coughing . SHe denies any fever, chest pain or palpitations. Her SOB has stayed the same. Objective - Vital Signs/Intake and Output Vital Signs (last 24 hours): Temp Pulse Resp BP Pulse Ox 98.1 F 79 20 103/68 95 09/17/18 07:22 09/17/18 07:22 09/17/18 07:22 09/17/18 07:22 09/17/18 07:22 Intake and Output: 09/17/18 09/17/18 06:59 18:59 Intake Total 750 Balance 750 - Medications Medications: Current Medications Baclofen (Lioresal) 20 mg PO BID [facility] Last Admin: 09/17/18 09:02 Dose: 20 mg Ciprofloxacin (Cipro) 500 mg PO BID [facility]; Protocol Last Admin: 09/17/18 09:01 Dose: 500 mg Folic Acid (Folic Acid) 1 mg PO DAILY [facility] Last Admin: 09/17/18 09:01 Dose: 1 mg Guaifenesin (Mucinex La) 600 mg PO BID [facility] Last Admin: 09/17/18 09:01 Dose: 600 mg Hydroxychloroquine Sulfate (Plaquenil) 200 mg PO BID [facility] Last Admin: 09/17/18 09:02 Dose: 200 mg Sodium Chloride (Sodium Chloride 0.9%) 500 mls @ 80 mls/hr IV .Q6H15M [facility] Last Admin: 09/17/18 11:30 Dose: Not Given Lactulose (Enulose) 20 gm PO HS PRN PRN Reason: Constipation Nystatin (Nystatin Oral Susp) 5 ml PO QID [facility] Last Admin: 09/17/18 09:02 Dose: 5 ml Ondansetron HCl (Zofran Inj) 4 mg IVP Q4H PRN PRN Reason: Nausea/Vomiting Pantoprazole Sodium (Protonix Ec Tab) 40 mg PO DAILY [facility] Last Admin: 09/17/18 09:01 Dose: 40 mg Prednisone (Prednisone Tab) 20 mg PO DAILY [facility] Last Admin: 09/17/18 09:03 Dose: 20 mg Saccharomyces Boulardii (Florastor) 250 mg PO BID [facility] Last Admin: 09/17/18 09:01 Dose: 250 mg Senna/Docusate Sodium (Senokot S 50 Mg-8.6 Mg) 2 tab PO HS [facility] Last Admin: 09/16/18 22:00 Dose: 2 tab Sumatriptan Succinate (Imitrex Tab) 100 mg PO DAILY PRN Trimethoprim/Sulfamethoxazole (Bactrim Ds Tab) 1 tab PO Q12H [facility]; Protocol Last Admin: 09/17/18 08:58 Dose: 1 tab - Labs Labs: 09/17/18 07:11 09/17/18 07:11 - Additional Findings Additional findings: - Constitutional Appears: Well, Non-toxic, No Acute Distress - Head Exam Head Exam: ATRAUMATIC, NORMAL INSPECTION, NORMOCEPHALIC - Eye Exam Eye Exam: EOMI, Normal appearance - ENT Exam ENT Exam: Mucous Membranes Moist - Respiratory Exam Respiratory Exam: Rales (Mild, Left Sided (Improves with cough)). absent: Clear to Auscultation Bilateral - Cardiovascular Exam Cardiovascular Exam: +S1, +S2 Additional comments: +S3 Heart Sound - GI/Abdominal Exam GI & Abdominal Exam: Soft. absent: Tenderness - Extremities Exam Extremities exam: Negative for: pedal edema - Neurological Exam Neurological exam: Alert, Oriented x3 - Psychiatric Exam Psychiatric exam: Normal Affect, Normal Mood - Skin Skin Exam: Dry, Intact, Normal Color, Warm Assessment and Plan - Assessment and Plan (Free Text) Assessment: 43 year old female with PMHx of asthma, RA, SLE, sarcoidosis, and anemia who presented to the emergency room yesterday morning with worsening shortness of breath and cough for 1 month. Cardiology consulted for SOB. Plan: SOB 2/2 Rheumatoid Lung Disease/Sarcoidoisis/PNA. Likely not Cardiac Origin, but of Pulmonary Etiology Labs: BNP - Negative. Mgmt: Stress Test: Normal ECHO: Normal Systolic (EF 65-70%) and Diastolic Dysfunction. BNP - NEGATIVE. Dispo: Likely not Cardiac Origin. Cont. Medical management. Patient discussed with Dr. Jose Alejandro Trivedi, PGY-2 <Jason Blount - Last Filed: 09/17/18 23:23> Objective - Vital Signs/Intake and Output Vital Signs (last 24 hours): Temp Pulse Resp BP Pulse Ox 98.6 F 86 20 124/83 98 09/17/18 16:07 09/17/18 16:07 09/17/18 16:07 09/17/18 16:07 09/17/18 16:07 Intake and Output: 09/17/18 09/18/18 18:59 06:59 Intake Total 500 Balance 500 - Medications Medications: Current Medications Baclofen (Lioresal) 20 mg PO BID [facility] Last Admin: 09/17/18 17:10 Dose: 20 mg Ciprofloxacin (Cipro) 500 mg PO BID [facility]; Protocol Last Admin: 09/17/18 17:09 Dose: 500 mg Folic Acid (Folic Acid) 1 mg PO DAILY [facility] Last Admin: 09/17/18 09:01 Dose: 1 mg Guaifenesin (Mucinex La) 600 mg PO BID [facility] Last Admin: 09/17/18 17:10 Dose: 600 mg Hydroxychloroquine Sulfate (Plaquenil) 200 mg PO BID [facility] Last Admin: 09/17/18 17:10 Dose: 200 mg Sodium Chloride (Sodium Chloride 0.9%) 500 mls @ 80 mls/hr IV .Q6H15M [facility] Last Admin: 09/17/18 23:19 Dose: Not Given Lactulose (Enulose) 20 gm PO HS PRN PRN Reason: Constipation Last Admin: 09/17/18 22:16 Dose: 20 gm Nystatin (Nystatin Oral Susp) 5 ml PO QID [facility] Last Admin: 09/17/18 21:12 Dose: 5 ml Ondansetron HCl (Zofran Inj) 4 mg IVP Q4H PRN PRN Reason: Nausea/Vomiting Pantoprazole Sodium (Protonix Ec Tab) 40 mg PO DAILY [facility] Last Admin: 09/17/18 09:01 Dose: 40 mg Prednisone (Prednisone Tab) 20 mg PO DAILY [facility] Last Admin: 09/17/18 09:03 Dose: 20 mg Saccharomyces Boulardii (Florastor) 250 mg PO BID [facility] Last Admin: 09/17/18 17:10 Dose: 250 mg Senna/Docusate Sodium (Senokot S 50 Mg-8.6 Mg) 2 tab PO HS [facility] Last Admin: 09/17/18 21:12 Dose: 2 tab Sumatriptan Succinate (Imitrex Tab) 100 mg PO DAILY PRN Trimethoprim/Sulfamethoxazole (Bactrim Ds Tab) 1 tab PO Q12H [facility]; Protocol Last Admin: 09/17/18 21:12 Dose: 1 tab - Labs Labs: 09/17/18 07:11 09/17/18 19:28 Assessment and Plan - Assessment and Plan (Free Text) Plan: Patient seen and evaluated personally by me. Plan of care d/w the lpn medical assistant and as documented
--- NOTE | 2018-09-17 12:51 | CP.PCM.PN ---
Subjective - Date & Time of Evaluation Date of Evaluation: 09/17/18 Time of Evaluation: 12:51 - Subjective Subjective: afebrile VSS. +VE COUGH. on po abx. awaiting w/u Objective - Vital Signs/Intake and Output Vital Signs (last 24 hours): Temp Pulse Resp BP Pulse Ox 98.1 F 79 20 103/68 95 09/17/18 07:22 09/17/18 07:22 09/17/18 07:22 09/17/18 07:22 09/17/18 07:22 Intake and Output: 09/17/18 09/17/18 06:59 18:59 Intake Total 750 Balance 750 - Medications Medications: Current Medications Baclofen (Lioresal) 20 mg PO BID [facility] Last Admin: 09/17/18 09:02 Dose: 20 mg Ciprofloxacin (Cipro) 500 mg PO BID [facility]; Protocol Last Admin: 09/17/18 09:01 Dose: 500 mg Folic Acid (Folic Acid) 1 mg PO DAILY [facility] Last Admin: 09/17/18 09:01 Dose: 1 mg Guaifenesin (Mucinex La) 600 mg PO BID [facility] Last Admin: 09/17/18 09:01 Dose: 600 mg Hydroxychloroquine Sulfate (Plaquenil) 200 mg PO BID [facility] Last Admin: 09/17/18 09:02 Dose: 200 mg Sodium Chloride (Sodium Chloride 0.9%) 500 mls @ 80 mls/hr IV .Q6H15M [facility] Last Admin: 09/17/18 11:30 Dose: Not Given Lactulose (Enulose) 20 gm PO HS PRN PRN Reason: Constipation Nystatin (Nystatin Oral Susp) 5 ml PO QID [facility] Last Admin: 09/17/18 09:02 Dose: 5 ml Ondansetron HCl (Zofran Inj) 4 mg IVP Q4H PRN PRN Reason: Nausea/Vomiting Pantoprazole Sodium (Protonix Ec Tab) 40 mg PO DAILY [facility] Last Admin: 09/17/18 09:01 Dose: 40 mg Prednisone (Prednisone Tab) 20 mg PO DAILY [facility] Last Admin: 09/17/18 09:03 Dose: 20 mg Saccharomyces Boulardii (Florastor) 250 mg PO BID [facility] Last Admin: 09/17/18 09:01 Dose: 250 mg Senna/Docusate Sodium (Senokot S 50 Mg-8.6 Mg) 2 tab PO HS [facility] Last Admin: 09/16/18 22:00 Dose: 2 tab Sumatriptan Succinate (Imitrex Tab) 100 mg PO DAILY PRN Trimethoprim/Sulfamethoxazole (Bactrim Ds Tab) 1 tab PO Q12H [facility]; Protocol Last Admin: 09/17/18 08:58 Dose: 1 tab - Labs Labs: 09/17/18 07:11 09/17/18 07:11 - Constitutional Appears: No Acute Distress - Head Exam Head Exam: NORMAL INSPECTION - Eye Exam Eye Exam: EOMI, PERRL - ENT Exam ENT Exam: Normal Oropharynx - Neck Exam Neck Exam: Normal Inspection - Respiratory Exam Respiratory Exam: Rhonchi (b/l), NORMAL BREATHING PATTERN - Cardiovascular Exam Cardiovascular Exam: REGULAR RHYTHM, +S1, +S2 - GI/Abdominal Exam GI & Abdominal Exam: Soft, Normal Bowel Sounds - Neurological Exam Neurological Exam: Alert, Awake, CN II-XII Intact, Normal Gait, Oriented x3, Reflexes Normal - Psychiatric Exam Psychiatric exam: Normal Mood - Skin Skin Exam: Normal Color, Warm Assessment and Plan (1) Respiratory distress Status: Acute (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 09/12/18. CONTINUE PO BACTRIM I DS EVERY 12 HOURLY. NYSTATIN PO SWISH/ SWALLOW QID PT ON STEROIDS TB- SPOT TEST FOR CONFIRMATION FOR LATENT TB IN PROGRESS PT S/P FOB AND BX . FOLLOW-UP BIOPSY/ BAL FOR AFB, PCP FUNGAL, VIRAL INCLUSION BODIES WITH SPECIAL STAINS -P CASE DISCUSSED WITH STAFF
[2018-09-17 19:48] LABS: BLOOD UREA NITROGEN 22 mg/dL (7-17); CALCIUM 9.4 mg/dl (8.6-10.4); GFR NON-AFRICAN AMERICAN > 60
[2018-09-17] MEDS: Docusate-Senna 50 mg-8.6 mg Tab PO SCH (21:12)
--- NOTE | 2018-09-17 22:58 | CP.PCM.PN ---
Subjective - Date & Time of Evaluation Date of Evaluation: 09/17/18 Time of Evaluation: 07:00 - Subjective Subjective: dict Objective - Vital Signs/Intake and Output Vital Signs (last 24 hours): Temp Pulse Resp BP Pulse Ox 98.6 F 86 20 124/83 98 09/17/18 16:07 09/17/18 16:07 09/17/18 16:07 09/17/18 16:07 09/17/18 16:07 Intake and Output: 09/17/18 09/18/18 18:59 06:59 Intake Total 500 Balance 500 - Medications Medications: Current Medications Baclofen (Lioresal) 20 mg PO BID [facility] Last Admin: 09/17/18 17:10 Dose: 20 mg Ciprofloxacin (Cipro) 500 mg PO BID [facility]; Protocol Last Admin: 09/17/18 17:09 Dose: 500 mg Folic Acid (Folic Acid) 1 mg PO DAILY [facility] Last Admin: 09/17/18 09:01 Dose: 1 mg Guaifenesin (Mucinex La) 600 mg PO BID [facility] Last Admin: 09/17/18 17:10 Dose: 600 mg Hydroxychloroquine Sulfate (Plaquenil) 200 mg PO BID [facility] Last Admin: 09/17/18 17:10 Dose: 200 mg Sodium Chloride (Sodium Chloride 0.9%) 500 mls @ 80 mls/hr IV .Q6H15M [facility] Last Admin: 09/17/18 21:11 Dose: Not Given Lactulose (Enulose) 20 gm PO HS PRN PRN Reason: Constipation Last Admin: 09/17/18 22:16 Dose: 20 gm Nystatin (Nystatin Oral Susp) 5 ml PO QID [facility] Last Admin: 09/17/18 21:12 Dose: 5 ml Ondansetron HCl (Zofran Inj) 4 mg IVP Q4H PRN PRN Reason: Nausea/Vomiting Pantoprazole Sodium (Protonix Ec Tab) 40 mg PO DAILY [facility] Last Admin: 09/17/18 09:01 Dose: 40 mg Prednisone (Prednisone Tab) 20 mg PO DAILY [facility] Last Admin: 09/17/18 09:03 Dose: 20 mg Saccharomyces Boulardii (Florastor) 250 mg PO BID [facility] Last Admin: 09/17/18 17:10 Dose: 250 mg Senna/Docusate Sodium (Senokot S 50 Mg-8.6 Mg) 2 tab PO HS [facility] Last Admin: 09/17/18 21:12 Dose: 2 tab Sumatriptan Succinate (Imitrex Tab) 100 mg PO DAILY PRN Trimethoprim/Sulfamethoxazole (Bactrim Ds Tab) 1 tab PO Q12H [facility]; Protocol Last Admin: 09/17/18 21:12 Dose: 1 tab - Labs Labs: 09/17/18 07:11 09/17/18 19:28
--- NOTE | 2018-09-18 03:25 | PN ---
DATE: 09/17/2018 SUBJECTIVE: The patient is afebrile. Less cough. Less shortness of breath. Status post bronchoscopy. Some of the results of bronchoscopy are coming back. No fever. No chills. On antibiotics. PHYSICAL EXAMINATION: VITAL SIGNS: Blood pressure 124/83, pulse 86, respiratory rate 20, temperature 98.6. LUNGS: Bilateral scattered rales. CARDIOVASCULAR SYSTEM: S1 and S2, regular. ABDOMEN: Soft. ASSESSMENT: 1. Pneumonia, status post bronchoscopy. 2. Rheumatoid arthritis. PLAN: Continue antibiotics. Follow up results of bronchoscopy. Labs have been reviewed. Elvin Hidalgo MD
[2018-09-18] MEDS: Saccharomyces Boulardi 250 mg Cap PO SCH ×2 (09:33→17:34)
[2018-09-18] MEDS: Tmp-Smz 800 mg-160 mg DS Tab PO SCH ×2 (09:33→21:18)
[2018-09-18] MEDS: Nystatin 100,000 Units/ml Oral Susp 5 ml UD PO SCH ×4 (09:33→21:15)
[2018-09-18] MEDS: Pantoprazole 40 mg EC Tab PO SCH (09:34)
[2018-09-18] MEDS: guaiFENesin 600 mg ER Tab PO SCH ×2 (09:35→17:34)
[2018-09-18] MEDS: Sodium Chloride 0.9% 500 ML IV SCH ×2 (12:08→17:45)
--- NOTE | 2018-09-18 19:18 | CP.PCM.PN ---
Subjective - Date & Time of Evaluation Date of Evaluation: 09/18/18 Time of Evaluation: 15:05 - Subjective Subjective: patient is alert and responsive. Denies fever, denies nausea today with persistent cough. BUN 22, LFTs mildly elevated and lung biopsy results pending. Humira injection is on hold until all results are reviewed. Objective - Vital Signs/Intake and Output Vital Signs (last 24 hours): Temp Pulse Resp BP Pulse Ox 98.1 F 90 20 115/84 97 09/18/18 16:00 09/18/18 16:00 09/18/18 16:00 09/18/18 16:00 09/18/18 16:00 Intake and Output: 09/18/18 09/19/18 18:59 06:59 Intake Total 480 Balance 480 - Medications Medications: Current Medications Baclofen (Lioresal) 20 mg PO BID [facility] Last Admin: 09/18/18 17:35 Dose: 20 mg Ciprofloxacin (Cipro) 500 mg PO BID [facility]; Protocol Last Admin: 09/18/18 17:35 Dose: 500 mg Folic Acid (Folic Acid) 1 mg PO DAILY [facility] Last Admin: 09/18/18 09:34 Dose: 1 mg Guaifenesin (Mucinex La) 600 mg PO BID [facility] Last Admin: 09/18/18 17:34 Dose: 600 mg Hydroxychloroquine Sulfate (Plaquenil) 200 mg PO BID [facility] Last Admin: 09/18/18 17:35 Dose: 200 mg Sodium Chloride (Sodium Chloride 0.9%) 500 mls @ 80 mls/hr IV .Q6H15M [facility] Last Admin: 09/18/18 12:08 Dose: Not Given Lactulose (Enulose) 20 gm PO HS PRN PRN Reason: Constipation Last Admin: 09/17/18 22:16 Dose: 20 gm Nystatin (Nystatin Oral Susp) 5 ml PO QID [facility] Last Admin: 09/18/18 17:36 Dose: 5 ml Ondansetron HCl (Zofran Inj) 4 mg IVP Q4H PRN PRN Reason: Nausea/Vomiting Pantoprazole Sodium (Protonix Ec Tab) 40 mg PO DAILY [facility] Last Admin: 09/18/18 09:34 Dose: 40 mg Prednisone (Prednisone Tab) 20 mg PO DAILY [facility] Last Admin: 09/18/18 09:34 Dose: 20 mg Saccharomyces Boulardii (Florastor) 250 mg PO BID [facility] Last Admin: 09/18/18 17:34 Dose: 250 mg Senna/Docusate Sodium (Senokot S 50 Mg-8.6 Mg) 2 tab PO HS [facility] Last Admin: 09/17/18 21:12 Dose: 2 tab Sumatriptan Succinate (Imitrex Tab) 100 mg PO DAILY PRN Trimethoprim/Sulfamethoxazole (Bactrim Ds Tab) 1 tab PO Q12H [facility]; Protocol Last Admin: 09/18/18 09:33 Dose: 1 tab - Labs Labs: 09/17/18 07:11 09/17/18 19:28 - Constitutional Appears: Chronically Ill - Head Exam Head Exam: NORMOCEPHALIC - Eye Exam Eye Exam: Normal appearance Pupil Exam: NORMAL ACCOMODATION - ENT Exam ENT Exam: Normal Oropharynx - Respiratory Exam Respiratory Exam: Decreased Breath Sounds - Cardiovascular Exam Cardiovascular Exam: REGULAR RHYTHM - GI/Abdominal Exam GI & Abdominal Exam: Normal Bowel Sounds - Rectal Exam Rectal Exam: Deferred - Extremities Exam Extremities Exam: Tenderness - Neurological Exam Neurological Exam: Oriented x3 - Psychiatric Exam Psychiatric exam: Normal Mood - Skin Skin Exam: Dry Assessment and Plan (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
--- NOTE | 2018-09-18 19:21 | CP.PCM.PN ---
Subjective - Date & Time of Evaluation Date of Evaluation: 09/18/18 Time of Evaluation: 15:15 - Subjective Subjective: Patient seen and examined at bedside. Still coughing . SHe denies any fever, chest pain or palpitations. Her SOB has stayed the same. Objective - Vital Signs/Intake and Output Vital Signs (last 24 hours): Temp Pulse Resp BP Pulse Ox 98.1 F 79 20 103/68 95 09/17/18 07:22 09/17/18 07:22 09/17/18 07:22 09/17/18 07:22 09/17/18 07:22 Intake and Output: 09/17/18 09/17/18 06:59 18:59 Intake Total 750 Balance 750 - Medications Medications: Current Medications Baclofen (Lioresal) 20 mg PO BID [facility] Last Admin: 09/17/18 09:02 Dose: 20 mg Ciprofloxacin (Cipro) 500 mg PO BID [facility]; Protocol Last Admin: 09/17/18 09:01 Dose: 500 mg Folic Acid (Folic Acid) 1 mg PO DAILY [facility] Last Admin: 09/17/18 09:01 Dose: 1 mg Guaifenesin (Mucinex La) 600 mg PO BID [facility] Last Admin: 09/17/18 09:01 Dose: 600 mg Hydroxychloroquine Sulfate (Plaquenil) 200 mg PO BID [facility] Last Admin: 09/17/18 09:02 Dose: 200 mg Sodium Chloride (Sodium Chloride 0.9%) 500 mls @ 80 mls/hr IV .Q6H15M [facility] Last Admin: 09/17/18 11:30 Dose: Not Given Lactulose (Enulose) 20 gm PO HS PRN PRN Reason: Constipation Nystatin (Nystatin Oral Susp) 5 ml PO QID [facility] Last Admin: 09/17/18 09:02 Dose: 5 ml Ondansetron HCl (Zofran Inj) 4 mg IVP Q4H PRN PRN Reason: Nausea/Vomiting Pantoprazole Sodium (Protonix Ec Tab) 40 mg PO DAILY [facility] Last Admin: 09/17/18 09:01 Dose: 40 mg Prednisone (Prednisone Tab) 20 mg PO DAILY [facility] Last Admin: 09/17/18 09:03 Dose: 20 mg Saccharomyces Boulardii (Florastor) 250 mg PO BID [facility] Last Admin: 09/17/18 09:01 Dose: 250 mg Senna/Docusate Sodium (Senokot S 50 Mg-8.6 Mg) 2 tab PO HS [facility] Last Admin: 09/16/18 22:00 Dose: 2 tab Sumatriptan Succinate (Imitrex Tab) 100 mg PO DAILY PRN Trimethoprim/Sulfamethoxazole (Bactrim Ds Tab) 1 tab PO Q12H [facility]; Protocol Last Admin: 09/17/18 08:58 Dose: 1 tab - Labs Labs: 09/17/18 07:11 09/17/18 07:11 - Additional Findings Additional findings: - Constitutional Appears: Well, Non-toxic, No Acute Distress - Head Exam Head Exam: ATRAUMATIC, NORMAL INSPECTION, NORMOCEPHALIC - Eye Exam Eye Exam: EOMI, Normal appearance - ENT Exam ENT Exam: Mucous Membranes Moist - Respiratory Exam Respiratory Exam: Rales (Mild, Left Sided (Improves with cough)). absent: Clear to Auscultation Bilateral - Cardiovascular Exam Cardiovascular Exam: +S1, +S2 Additional comments: +S3 Heart Sound - GI/Abdominal Exam GI & Abdominal Exam: Soft. absent: Tenderness - Extremities Exam Extremities exam: Negative for: pedal edema - Neurological Exam Neurological exam: Alert, Oriented x3 - Psychiatric Exam Psychiatric exam: Normal Affect, Normal Mood - Skin Skin Exam: Dry, Intact, Normal Color, Warm Assessment and Plan - Assessment and Plan (Free Text) Assessment: 43 year old female with PMHx of asthma, RA, SLE, sarcoidosis, and anemia who presented to the emergency room yesterday morning with worsening shortness of breath and cough for 1 month. Cardiology consulted for SOB. Plan: SOB 2/2 Rheumatoid Lung Disease/Sarcoidoisis/PNA. Likely not Cardiac Origin, but of Pulmonary Etiology Labs: BNP - Negative. Mgmt: Stress Test: Normal ECHO: Normal Systolic (EF 65-70%) and Diastolic Dysfunction. BNP - NEGATIVE. Objective - Vital Signs/Intake and Output Vital Signs (last 24 hours): Temp Pulse Resp BP Pulse Ox 98.1 F 90 20 115/84 97 09/18/18 16:00 09/18/18 16:00 09/18/18 16:00 09/18/18 16:00 09/18/18 16:00 Intake and Output: 09/18/18 09/19/18 18:59 06:59 Intake Total 480 Balance 480 - Medications Medications: Current Medications Baclofen (Lioresal) 20 mg PO BID [facility] Last Admin: 09/18/18 17:35 Dose: 20 mg Ciprofloxacin (Cipro) 500 mg PO BID [facility]; Protocol Last Admin: 09/18/18 17:35 Dose: 500 mg Folic Acid (Folic Acid) 1 mg PO DAILY [facility] Last Admin: 09/18/18 09:34 Dose: 1 mg Guaifenesin (Mucinex La) 600 mg PO BID [facility] Last Admin: 09/18/18 17:34 Dose: 600 mg Hydroxychloroquine Sulfate (Plaquenil) 200 mg PO BID [facility] Last Admin: 09/18/18 17:35 Dose: 200 mg Sodium Chloride (Sodium Chloride 0.9%) 500 mls @ 80 mls/hr IV .Q6H15M [facility] Last Admin: 09/18/18 12:08 Dose: Not Given Lactulose (Enulose) 20 gm PO HS PRN PRN Reason: Constipation Last Admin: 09/17/18 22:16 Dose: 20 gm Nystatin (Nystatin Oral Susp) 5 ml PO QID [facility] Last Admin: 09/18/18 17:36 Dose: 5 ml Ondansetron HCl (Zofran Inj) 4 mg IVP Q4H PRN PRN Reason: Nausea/Vomiting Pantoprazole Sodium (Protonix Ec Tab) 40 mg PO DAILY [facility] Last Admin: 09/18/18 09:34 Dose: 40 mg Prednisone (Prednisone Tab) 20 mg PO DAILY [facility] Last Admin: 09/18/18 09:34 Dose: 20 mg Saccharomyces Boulardii (Florastor) 250 mg PO BID [facility] Last Admin: 09/18/18 17:34 Dose: 250 mg Senna/Docusate Sodium (Senokot S 50 Mg-8.6 Mg) 2 tab PO [facility] Last Admin: 09/17/18 21:12 Dose: 2 tab Sumatriptan Succinate (Imitrex Tab) 100 mg PO DAILY PRN Trimethoprim/Sulfamethoxazole (Bactrim Ds Tab) 1 tab PO Q12H [facility]; Protocol Last Admin: 09/18/18 09:33 Dose: 1 tab - Labs Labs: 09/17/18 07:11 09/17/18 19:28
--- NOTE | 2018-09-18 20:04 | CP.PCM.PN ---
Subjective - Date & Time of Evaluation Date of Evaluation: 09/18/18 Time of Evaluation: 19:00 - Subjective Subjective: Patient seen and examined Condition much improved with slight cough Bronchial washing negative for AFB, fungus Consider to discontinue isolation Continue antibiotics Follow-up biopsy report Objective - Vital Signs/Intake and Output Vital Signs (last 24 hours): Temp Pulse Resp BP Pulse Ox 98.1 F 90 20 115/84 97 09/18/18 16:00 09/18/18 16:00 09/18/18 16:00 09/18/18 16:00 09/18/18 16:00 Intake and Output: 09/18/18 09/19/18 18:59 06:59 Intake Total 480 Balance 480 - Medications Medications: Current Medications Baclofen (Lioresal) 20 mg PO BID [facility] Last Admin: 09/18/18 17:35 Dose: 20 mg Ciprofloxacin (Cipro) 500 mg PO BID [facility]; Protocol Last Admin: 09/18/18 17:35 Dose: 500 mg Folic Acid (Folic Acid) 1 mg PO DAILY [facility] Last Admin: 09/18/18 09:34 Dose: 1 mg Guaifenesin (Mucinex La) 600 mg PO BID [facility] Last Admin: 09/18/18 17:34 Dose: 600 mg Hydroxychloroquine Sulfate (Plaquenil) 200 mg PO BID [facility] Last Admin: 09/18/18 17:35 Dose: 200 mg Sodium Chloride (Sodium Chloride 0.9%) 500 mls @ 80 mls/hr IV .Q6H15M [facility] Last Admin: 09/18/18 12:08 Dose: Not Given Lactulose (Enulose) 20 gm PO HS PRN PRN Reason: Constipation Last Admin: 09/17/18 22:16 Dose: 20 gm Nystatin (Nystatin Oral Susp) 5 ml PO QID [facility] Last Admin: 09/18/18 17:36 Dose: 5 ml Ondansetron HCl (Zofran Inj) 4 mg IVP Q4H PRN PRN Reason: Nausea/Vomiting Pantoprazole Sodium (Protonix Ec Tab) 40 mg PO DAILY [facility] Last Admin: 09/18/18 09:34 Dose: 40 mg Prednisone (Prednisone Tab) 20 mg PO DAILY [facility] Last Admin: 09/18/18 09:34 Dose: 20 mg Saccharomyces Boulardii (Florastor) 250 mg PO BID [facility] Last Admin: 09/18/18 17:34 Dose: 250 mg Senna/Docusate Sodium (Senokot S 50 Mg-8.6 Mg) 2 tab PO HS [facility] Last Admin: 09/17/18 21:12 Dose: 2 tab Sumatriptan Succinate (Imitrex Tab) 100 mg PO DAILY PRN Trimethoprim/Sulfamethoxazole (Bactrim Ds Tab) 1 tab PO Q12H [facility]; Protocol Last Admin: 09/18/18 09:33 Dose: 1 tab - Labs Labs: 09/17/18 07:11 09/17/18 19:28 Assessment and Plan (1) Respiratory distress Status: Acute (2) Rheumatoid aortitis Status: Acute (3) Systemic lupus Status: Acute
[2018-09-18] MEDS: Docusate-Senna 50 mg-8.6 mg Tab PO SCH (21:15)
--- NOTE | 2018-09-18 22:56 | CP.PCM.PN ---
Subjective - Date & Time of Evaluation Date of Evaluation: 09/18/18 Time of Evaluation: 22:55 - Subjective Subjective: AFEBRILE. +VE COUGH . DENIES CHEST PAIN /OR SOB S/P FOB / BX 09/17/18. LABS REVIEWED ; BRONCHIAL WASHINGS -VE GROWTH BAL -VE FOR AFB SMEAR, -VE FUNGAL ELEMENTS BAL -VE FOR PCP. BIOPSY/SPECIAL STAINS -P LFTS IMPROVING Objective - Vital Signs/Intake and Output Vital Signs (last 24 hours): Temp Pulse Resp BP Pulse Ox 98.1 F 90 20 115/84 97 09/18/18 16:00 09/18/18 16:00 09/18/18 16:00 09/18/18 16:00 09/18/18 16:00 Intake and Output: 09/18/18 09/19/18 18:59 06:59 Intake Total 480 200 Balance 480 200 - Medications Medications: Current Medications Baclofen (Lioresal) 20 mg PO BID [facility] Last Admin: 09/18/18 17:35 Dose: 20 mg Ciprofloxacin (Cipro) 500 mg PO BID [facility]; Protocol Last Admin: 09/18/18 17:35 Dose: 500 mg Folic Acid (Folic Acid) 1 mg PO DAILY [facility] Last Admin: 09/18/18 09:34 Dose: 1 mg Guaifenesin (Mucinex La) 600 mg PO BID [facility] Last Admin: 09/18/18 17:34 Dose: 600 mg Hydroxychloroquine Sulfate (Plaquenil) 200 mg PO BID [facility] Last Admin: 09/18/18 17:35 Dose: 200 mg Sodium Chloride (Sodium Chloride 0.9%) 500 mls @ 80 mls/hr IV .Q6H15M [facility] Last Admin: 09/18/18 12:08 Dose: Not Given Lactulose (Enulose) 20 gm PO HS PRN PRN Reason: Constipation Last Admin: 09/17/18 22:16 Dose: 20 gm Nystatin (Nystatin Oral Susp) 5 ml PO QID [facility] Last Admin: 09/18/18 21:15 Dose: 5 ml Ondansetron HCl (Zofran Inj) 4 mg IVP Q4H PRN PRN Reason: Nausea/Vomiting Pantoprazole Sodium (Protonix Ec Tab) 40 mg PO DAILY [facility] Last Admin: 09/18/18 09:34 Dose: 40 mg Prednisone (Prednisone Tab) 20 mg PO DAILY [facility] Last Admin: 09/18/18 09:34 Dose: 20 mg Saccharomyces Boulardii (Florastor) 250 mg PO BID [facility] Last Admin: 09/18/18 17:34 Dose: 250 mg Senna/Docusate Sodium (Senokot S 50 Mg-8.6 Mg) 2 tab PO HS [facility] Last Admin: 09/18/18 21:15 Dose: 2 tab Sumatriptan Succinate (Imitrex Tab) 100 mg PO DAILY PRN Trimethoprim/Sulfamethoxazole (Bactrim Ds Tab) 1 tab PO Q12H [facility]; Protocol Last Admin: 09/18/18 21:18 Dose: 1 tab - Labs Labs: 09/17/18 07:11 09/17/18 19:28 - Constitutional Appears: No Acute Distress - Head Exam Head Exam: NORMAL INSPECTION - Eye Exam Eye Exam: EOMI, PERRL - ENT Exam ENT Exam: Normal Oropharynx - Neck Exam Neck Exam: Normal Inspection. absent: Lymphadenopathy - Respiratory Exam Respiratory Exam: Rhonchi (B/L), NORMAL BREATHING PATTERN - Cardiovascular Exam Cardiovascular Exam: REGULAR RHYTHM, +S1, +S2 - GI/Abdominal Exam GI & Abdominal Exam: Soft, Normal Bowel Sounds - Extremities Exam Extremities Exam: Normal Capillary Refill. 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 09/12/18. CONTINUE PO BACTRIM I DS EVERY 12 HOURLY. NYSTATIN PO SWISH/ SWALLOW QID PT ON STEROIDS. PT S/P FOB AND BX . FOLLOW-UP BIOPSY WITH SPECIAL STAINS -P F/U BAL -CULTURES MAY DC RESPIRATORY AIRBORNE ISOLATION PER PULMONARY. CASE DISCUSSED WITH STAFF
[2018-09-19] MEDS: Sodium Chloride 0.9% 500 ML IV SCH ×3 (00:54→18:50)
--- NOTE | 2018-09-19 00:57 | CP.PCM.PN ---
Subjective - Date & Time of Evaluation Date of Evaluation: 09/18/18 Time of Evaluation: 09:25 - Subjective Subjective: dict Objective - Vital Signs/Intake and Output Vital Signs (last 24 hours): Temp Pulse Resp BP Pulse Ox 98.4 F 71 20 122/81 97 09/19/18 00:00 09/19/18 00:00 09/19/18 00:00 09/19/18 00:00 09/19/18 00:00 Intake and Output: 09/18/18 09/19/18 18:59 06:59 Intake Total 480 200 Balance 480 200 - Medications Medications: Current Medications Baclofen (Lioresal) 20 mg PO BID [facility] Last Admin: 09/18/18 17:35 Dose: 20 mg Ciprofloxacin (Cipro) 500 mg PO BID [facility]; Protocol Last Admin: 09/18/18 17:35 Dose: 500 mg Folic Acid (Folic Acid) 1 mg PO DAILY [facility] Last Admin: 09/18/18 09:34 Dose: 1 mg Guaifenesin (Mucinex La) 600 mg PO BID [facility] Last Admin: 09/18/18 17:34 Dose: 600 mg Hydroxychloroquine Sulfate (Plaquenil) 200 mg PO BID [facility] Last Admin: 09/18/18 17:35 Dose: 200 mg Sodium Chloride (Sodium Chloride 0.9%) 500 mls @ 80 mls/hr IV .Q6H15M [facility] Last Admin: 09/19/18 00:54 Dose: Not Given Lactulose (Enulose) 20 gm PO HS PRN PRN Reason: Constipation Last Admin: 09/17/18 22:16 Dose: 20 gm Nystatin (Nystatin Oral Susp) 5 ml PO QID [facility] Last Admin: 09/18/18 21:15 Dose: 5 ml Ondansetron HCl (Zofran Inj) 4 mg IVP Q4H PRN PRN Reason: Nausea/Vomiting Pantoprazole Sodium (Protonix Ec Tab) 40 mg PO DAILY [facility] Last Admin: 09/18/18 09:34 Dose: 40 mg Prednisone (Prednisone Tab) 20 mg PO DAILY [facility] Last Admin: 09/18/18 09:34 Dose: 20 mg Saccharomyces Boulardii (Florastor) 250 mg PO BID [facility] Last Admin: 09/18/18 17:34 Dose: 250 mg Senna/Docusate Sodium (Senokot S 50 Mg-8.6 Mg) 2 tab PO HS [facility] Last Admin: 09/18/18 21:15 Dose: 2 tab Sumatriptan Succinate (Imitrex Tab) 100 mg PO DAILY PRN Trimethoprim/Sulfamethoxazole (Bactrim Ds Tab) 1 tab PO Q12H [facility]; Protocol Last Admin: 09/18/18 21:18 Dose: 1 tab - Labs Labs: 09/17/18 07:11 09/17/18 19:28
[2018-09-19] MEDS: guaiFENesin 600 mg ER Tab PO SCH ×2 (09:16→17:10)
[2018-09-19] MEDS: Pantoprazole 40 mg EC Tab PO SCH (09:16)
[2018-09-19] MEDS: Saccharomyces Boulardi 250 mg Cap PO SCH ×2 (09:16→17:11)
[2018-09-19] MEDS: Tmp-Smz 800 mg-160 mg DS Tab PO SCH ×2 (09:17→21:14)
[2018-09-19] MEDS: Nystatin 100,000 Units/ml Oral Susp 5 ml UD PO SCH ×4 (09:17→21:14)
--- NOTE | 2018-09-19 14:01 | PN ---
DATE: 09/19/2018 SUBJECTIVE: The patient is less short of breath, less cough, less wheezing. She is afebrile. PHYSICAL EXAMINATION: VITAL SIGNS: Blood pressure 145/74, pulse 78, respiratory rate 20, temperature 97.9. LUNGS: Bilateral scattered rales and rhonchi. CARDIOVASCULAR: S1, S2. Regular. ABDOMEN: Soft, nontender. Bowel sounds positive. ASSESSMENT: 1. Acute exacerbation of asthma. 2. Pneumonia. 3. Rheumatoid arthritis. 4. Status post hyperkalemia. PLAN: Continue current medications. Monitor the patient. Discussed with Pulmonary plan of care. Elvin Hidalgo MD
--- NOTE | 2018-09-19 14:02 | CP.PCM.PN ---
Subjective - Date & Time of Evaluation Date of Evaluation: 09/19/18 Time of Evaluation: 14:02 - Subjective Subjective: Pulmonary follow up, Covering Dr Morrell The Patient was seen and examined at the bedside, Medical records reviewed, and management issues were discussed and formulated with the house staff. Events reviewed Objective - Vital Signs/Intake and Output Vital Signs (last 24 hours): Temp Pulse Resp BP Pulse Ox 97.5 F L 78 20 145/74 96 09/19/18 08:00 09/19/18 08:00 09/19/18 08:00 09/19/18 08:00 09/19/18 07:00 Intake and Output: 09/19/18 09/19/18 06:59 18:59 Intake Total 200 Balance 200 - Medications Medications: Current Medications Baclofen (Lioresal) 20 mg PO BID [facility] Last Admin: 09/19/18 09:17 Dose: 20 mg Ciprofloxacin (Cipro) 500 mg PO BID [facility]; Protocol Last Admin: 09/19/18 09:16 Dose: 500 mg Folic Acid (Folic Acid) 1 mg PO DAILY [facility] Last Admin: 09/19/18 09:16 Dose: 1 mg Guaifenesin (Mucinex La) 600 mg PO BID [facility] Last Admin: 09/19/18 09:16 Dose: 600 mg Hydroxychloroquine Sulfate (Plaquenil) 200 mg PO BID [facility] Last Admin: 09/19/18 09:16 Dose: 200 mg Sodium Chloride (Sodium Chloride 0.9%) 500 mls @ 80 mls/hr IV .Q6H15M [facility] Last Admin: 09/19/18 13:06 Dose: Not Given Lactulose (Enulose) 20 gm PO HS PRN PRN Reason: Constipation Last Admin: 09/17/18 22:16 Dose: 20 gm Nystatin (Nystatin Oral Susp) 5 ml PO QID [facility] Last Admin: 09/19/18 13:05 Dose: 5 ml Ondansetron HCl (Zofran Inj) 4 mg IM Q6H PRN PRN Reason: Nausea/Vomiting Pantoprazole Sodium (Protonix Ec Tab) 40 mg PO DAILY [facility] Last Admin: 09/19/18 09:16 Dose: 40 mg Prednisone (Prednisone Tab) 20 mg PO DAILY [facility] Last Admin: 09/19/18 09:17 Dose: 20 mg Saccharomyces Boulardii (Florastor) 250 mg PO BID [facility] Last Admin: 09/19/18 09:16 Dose: 250 mg Senna/Docusate Sodium (Senokot S 50 Mg-8.6 Mg) 2 tab PO HS [facility] Last Admin: 09/18/18 21:15 Dose: 2 tab Sumatriptan Succinate (Imitrex Tab) 100 mg PO DAILY PRN Trimethoprim/Sulfamethoxazole (Bactrim Ds Tab) 1 tab PO Q12H [facility]; Protocol Last Admin: 09/19/18 09:17 Dose: 1 tab - Labs Labs: 09/17/18 07:11 09/17/18 19:28
[2018-09-19] MEDS: Docusate-Senna 50 mg-8.6 mg Tab PO SCH (21:14)
--- NOTE | 2018-09-19 23:58 | CP.PCM.PN ---
Subjective - Date & Time of Evaluation Date of Evaluation: 09/19/18 Time of Evaluation: 07:00 - Subjective Subjective: dict Objective - Vital Signs/Intake and Output Vital Signs (last 24 hours): Temp Pulse Resp BP Pulse Ox 97.4 F L 73 18 102/67 98 09/19/18 23:53 09/19/18 23:53 09/19/18 23:53 09/19/18 23:53 09/19/18 23:53 Intake and Output: 09/19/18 09/20/18 18:59 06:59 Intake Total 300 Balance 300 - Medications Medications: Current Medications Baclofen (Lioresal) 20 mg PO BID [facility] Last Admin: 09/19/18 17:11 Dose: 20 mg Ciprofloxacin (Cipro) 500 mg PO BID [facility]; Protocol Last Admin: 09/19/18 17:11 Dose: 500 mg Folic Acid (Folic Acid) 1 mg PO DAILY [facility] Last Admin: 09/19/18 09:16 Dose: 1 mg Guaifenesin (Mucinex La) 600 mg PO BID [facility] Last Admin: 09/19/18 17:10 Dose: 600 mg Hydroxychloroquine Sulfate (Plaquenil) 200 mg PO BID [facility] Last Admin: 09/19/18 17:11 Dose: 200 mg Sodium Chloride (Sodium Chloride 0.9%) 500 mls @ 80 mls/hr IV .Q6H15M [facility] Last Admin: 09/19/18 18:50 Dose: Not Given Lactulose (Enulose) 20 gm PO HS PRN PRN Reason: Constipation Last Admin: 09/17/18 22:16 Dose: 20 gm Nystatin (Nystatin Oral Susp) 5 ml PO QID [facility] Last Admin: 09/19/18 21:14 Dose: 5 ml Ondansetron HCl (Zofran Inj) 4 mg IM Q6H PRN PRN Reason: Nausea/Vomiting Pantoprazole Sodium (Protonix Ec Tab) 40 mg PO DAILY [facility] Last Admin: 09/19/18 09:16 Dose: 40 mg Prednisone (Prednisone Tab) 20 mg PO DAILY [facility] Last Admin: 09/19/18 09:17 Dose: 20 mg Saccharomyces Boulardii (Florastor) 250 mg PO BID [facility] Last Admin: 09/19/18 17:11 Dose: 250 mg Senna/Docusate Sodium (Senokot S 50 Mg-8.6 Mg) 2 tab PO HS [facility] Last Admin: 09/19/18 21:14 Dose: 2 tab Sumatriptan Succinate (Imitrex Tab) 100 mg PO DAILY PRN Trimethoprim/Sulfamethoxazole (Bactrim Ds Tab) 1 tab PO Q12H [facility]; Protocol Last Admin: 09/19/18 21:14 Dose: 1 tab - Labs Labs: 09/17/18 07:11 09/17/18 19:28
--- NOTE | 2018-09-20 00:09 | CP.PCM.PN ---
Subjective - Date & Time of Evaluation Date of Evaluation: 09/19/18 Time of Evaluation: 17:20 - Subjective Subjective: Patient seen and examined at bedside. Still coughing . SHe denies any fever, chest pain or palpitations. Objective - Additional Findings Additional findings: - Constitutional Appears: Well, Non-toxic, No Acute Distress - Head Exam Head Exam: ATRAUMATIC, NORMAL INSPECTION, NORMOCEPHALIC - Eye Exam Eye Exam: EOMI, Normal appearance - ENT Exam ENT Exam: Mucous Membranes Moist - Respiratory Exam Respiratory Exam: Rales (Mild, Left Sided (Improves with cough)). absent: Clear to Auscultation Bilateral - Cardiovascular Exam Cardiovascular Exam: +S1, +S2 Additional comments: +S3 Heart Sound - GI/Abdominal Exam GI & Abdominal Exam: Soft. absent: Tenderness - Extremities Exam Extremities exam: Negative for: pedal edema - Neurological Exam Neurological exam: Alert, Oriented x3 - Psychiatric Exam Psychiatric exam: Normal Affect, Normal Mood - Skin Skin Exam: Dry, Intact, Normal Color, Warm Assessment and Plan - Assessment and Plan (Free Text) Assessment: 43 year old female with PMHx of asthma, RA, SLE, sarcoidosis, and anemia who presented to the emergency room yesterday morning with worsening shortness of breath and cough for 1 month. Cardiology consulted for SOB. Plan: SOB 2/2 Rheumatoid Lung Disease/Sarcoidoisis/PNA. Likely not Cardiac Origin, but of Pulmonary Etiology Labs: BNP - Negative. Mgmt: Stress Test: Normal ECHO: Normal Systolic (EF 65-70%) and Diastolic Dysfunction. BNP - NEGATIVE. Objective - Vital Signs/Intake and Output Vital Signs (last 24 hours): Temp Pulse Resp BP Pulse Ox 97.4 F L 73 18 102/67 98 09/19/18 23:53 09/19/18 23:53 09/19/18 23:53 09/19/18 23:53 09/19/18 23:53 Intake and Output: 09/19/18 09/20/18 18:59 06:59 Intake Total 300 Balance 300 - Medications Medications: Current Medications Baclofen (Lioresal) 20 mg PO BID [facility] Last Admin: 09/19/18 17:11 Dose: 20 mg Ciprofloxacin (Cipro) 500 mg PO BID [facility]; Protocol Last Admin: 09/19/18 17:11 Dose: 500 mg Folic Acid (Folic Acid) 1 mg PO DAILY [facility] Last Admin: 09/19/18 09:16 Dose: 1 mg Guaifenesin (Mucinex La) 600 mg PO BID [facility] Last Admin: 09/19/18 17:10 Dose: 600 mg Hydroxychloroquine Sulfate (Plaquenil) 200 mg PO BID [facility] Last Admin: 09/19/18 17:11 Dose: 200 mg Sodium Chloride (Sodium Chloride 0.9%) 500 mls @ 80 mls/hr IV .Q6H15M [facility] Last Admin: 09/19/18 18:50 Dose: Not Given Lactulose (Enulose) 20 gm PO HS PRN PRN Reason: Constipation Last Admin: 09/17/18 22:16 Dose: 20 gm Nystatin (Nystatin Oral Susp) 5 ml PO QID [facility] Last Admin: 09/19/18 21:14 Dose: 5 ml Ondansetron HCl (Zofran Inj) 4 mg IM Q6H PRN PRN Reason: Nausea/Vomiting Pantoprazole Sodium (Protonix Ec Tab) 40 mg PO DAILY [facility] Last Admin: 09/19/18 09:16 Dose: 40 mg Prednisone (Prednisone Tab) 20 mg PO DAILY [facility] Last Admin: 09/19/18 09:17 Dose: 20 mg Saccharomyces Boulardii (Florastor) 250 mg PO BID [facility] Last Admin: 09/19/18 17:11 Dose: 250 mg Senna/Docusate Sodium (Senokot S 50 Mg-8.6 Mg) 2 tab PO [facility] Last Admin: 09/19/18 21:14 Dose: 2 tab Sumatriptan Succinate (Imitrex Tab) 100 mg PO DAILY PRN Trimethoprim/Sulfamethoxazole (Bactrim Ds Tab) 1 tab PO Q12H [facility]; Protocol Last Admin: 09/19/18 21:14 Dose: 1 tab - Labs Labs: 09/17/18 07:11 09/17/18 19:28
--- NOTE | 2018-09-20 07:11 | PN ---
DATE: 09/20/2018 SUBJECTIVE: The patient is feeling better, less cough, less shortness of breath. No chest pain. No nausea or vomiting. Her AFBs have been negative. Her sputum culture is negative. PHYSICAL EXAMINATION: VITAL SIGNS: Blood pressure 102/67, pulse 73, respiratory rate 18, and temperature 97.4. LUNGS: Bilateral scattered rales. CARDIOVASCULAR SYSTEM: S1 and S2, regular. ABDOMEN: Soft. ASSESSMENT: 1. Pneumonia. 2. Rheumatoid arthritis. PLAN: Continue antibiotics. Follow up with ID. Monitor the patient. Elvin Hidalgo MD
[2018-09-20 07:32] VITALS: RESP 20
[2018-09-20] MEDS: guaiFENesin 600 mg ER Tab PO SCH ×2 (09:16→17:35)
[2018-09-20] MEDS: Pantoprazole 40 mg EC Tab PO SCH (09:17)
[2018-09-20] MEDS: Saccharomyces Boulardi 250 mg Cap PO SCH ×2 (09:17→17:42)
[2018-09-20] MEDS: Tmp-Smz 800 mg-160 mg DS Tab PO SCH (09:17)
[2018-09-20] MEDS: Nystatin 100,000 Units/ml Oral Susp 5 ml UD PO SCH ×3 (09:18→17:35)
[2018-09-20] MEDS: Sodium Chloride 0.9% 500 ML IV SCH (10:05)
[2018-09-20 15:47] VITALS: BP 118/79; PULSE 77; TEMP 98.1; O2SAT 97
--- NOTE | 2018-09-20 17:19 | CP.PCM.PN ---
Subjective - Date & Time of Evaluation Date of Evaluation: 09/20/18 Time of Evaluation: 17:12 - Subjective Subjective: pt alert and oriented x3 with no s/s of chest pain or SOB. Objective - Vital Signs/Intake and Output Vital Signs (last 24 hours): Temp Pulse Resp BP Pulse Ox 98.1 F 77 20 118/79 97 09/20/18 15:00 09/20/18 15:00 09/20/18 15:00 09/20/18 15:00 09/20/18 15:00 Intake and Output: 09/20/18 09/20/18 06:59 18:59 Intake Total 200 Balance 200 - Medications Medications: Current Medications Baclofen (Lioresal) 20 mg PO BID [facility] Last Admin: 09/20/18 09:18 Dose: 20 mg Ciprofloxacin (Cipro) 500 mg PO BID [facility]; Protocol Last Admin: 09/20/18 09:16 Dose: 500 mg Folic Acid (Folic Acid) 1 mg PO DAILY [facility] Last Admin: 09/20/18 09:17 Dose: 1 mg Guaifenesin (Mucinex La) 600 mg PO BID [facility] Last Admin: 09/20/18 09:16 Dose: 600 mg Hydroxychloroquine Sulfate (Plaquenil) 200 mg PO BID [facility] Last Admin: 09/20/18 09:18 Dose: 200 mg Lactulose (Enulose) 20 gm PO HS PRN PRN Reason: Constipation Last Admin: 09/17/18 22:16 Dose: 20 gm Nystatin (Nystatin Oral Susp) 5 ml PO QID [facility] Last Admin: 09/20/18 13:15 Dose: 5 ml Ondansetron HCl (Zofran Inj) 4 mg IM Q6H PRN PRN Reason: Nausea/Vomiting Pantoprazole Sodium (Protonix Ec Tab) 40 mg PO DAILY [facility] Last Admin: 09/20/18 09:17 Dose: 40 mg Prednisone (Prednisone Tab) 20 mg PO DAILY [facility] Last Admin: 09/20/18 09:18 Dose: 20 mg Saccharomyces Boulardii (Florastor) 250 mg PO BID [facility] Last Admin: 09/20/18 09:17 Dose: 250 mg Senna/Docusate Sodium (Senokot S 50 Mg-8.6 Mg) 2 tab PO HS [facility] Last Admin: 09/19/18 21:14 Dose: 2 tab Sumatriptan Succinate (Imitrex Tab) 100 mg PO DAILY PRN Last Admin: 09/20/18 13:34 Dose: 100 mg Trimethoprim/Sulfamethoxazole (Bactrim Ds Tab) 1 tab PO Q12H [facility]; Protocol Last Admin: 09/20/18 09:17 Dose: 1 tab - Labs Labs: 09/17/18 07:11 09/17/18 19:28 Assessment and Plan - Assessment and Plan (Free Text) Assessment: 43 year old female that was admitted for SOB and pulmonary infiltrates. pt seen and examined. VSS. pt denies any, SOB, chest pain or palpitations. Activity as tolerated. Discharge discussed with Dr. Hidalgo. Follow with PMD in 1 week and Pulmonary in 1-2 weeks. Continue home medications and start on po antibiotics and tapered steroids. Discussed with patient and family at the bedside discharge instructions who verbalized and agreed. Pt will be seen by Dr. Smith prior to discharge, case discussed with Dr. Holley.
--- NOTE | 2018-09-20 18:16 | CP.PCM.PN ---
Subjective - Date & Time of Evaluation Date of Evaluation: 09/20/18 Time of Evaluation: 10:00 - Subjective Subjective: Patient was seen and examined at armchair. Patient is clinically improving. She admits to cough and 1 episode of vomiting yesterday. She says the cough has improved. Denies f/c, cp, sob, n, constipation, diarrhea, and dysuria. O: General: NAD, AAOx3 HEENT: normocephalic, atraumatic Cardio: RRR S1 and S2 present Pulm: CTAB GI: soft, + bowel sounds in all four quadrants. Extremities: no pedal edema A: Bacterial PNA Fungal infection of lungs Leukocytosis Hyponatremia SLE P: Continue bactrim 1 tab Q12 and cipro 500 mg PO BID; positive for pseudomonas Continue Prednisone 20 mg PO daily Bronchoscopy studies all negative; pending biospy results Isolation was discontinued of 09/18 further management as per primary dispo: pending biopsy of bronchoscopy tissue to confirm that gram stain and fungal cx are negative; continue current treatment. Objective - Vital Signs/Intake and Output Vital Signs (last 24 hours): Temp Pulse Resp BP Pulse Ox 98.1 F 77 20 118/79 97 09/20/18 15:00 09/20/18 15:00 09/20/18 15:00 09/20/18 15:00 09/20/18 15:00 Intake and Output: 09/20/18 09/20/18 06:59 18:59 Intake Total 200 Balance 200 - Medications Medications: Current Medications Baclofen (Lioresal) 20 mg PO BID COUNT [facility]CLUD[facility] Last Admin: 09/20/18 17:41 Dose: 20 mg Ciprofloxacin (Cipro) 500 mg PO BID COUNT [facility]CLUD[facility]; Protocol Last Admin: 09/20/18 17:35 Dose: 500 mg Folic Acid (Folic Acid) 1 mg PO DAILY COUNT INCLUDES [facility] Last Admin: 09/20/18 09:17 Dose: 1 mg Guaifenesin (Mucinex La) 600 mg PO BID COUNT [facility]CLUD[facility] Last Admin: 09/20/18 17:35 Dose: 600 mg Hydroxychloroquine Sulfate (Plaquenil) 200 mg PO BID COUNT [facility]CLUD[facility] Last Admin: 09/20/18 17:35 Dose: 200 mg Lactulose (Enulose) 20 gm PO HS PRN PRN Reason: Constipation Last Admin: 09/17/18 22:16 Dose: 20 gm Nystatin (Nystatin Oral Susp) 5 ml PO QID COUNT [facility]CLUD[facility] Last Admin: 09/20/18 17:35 Dose: 5 ml Ondansetron HCl (Zofran Inj) 4 mg IM Q6H PRN PRN Reason: Nausea/Vomiting Pantoprazole Sodium (Protonix Ec Tab) 40 mg PO DAILY COUNT [facility]CLUD[facility] Last Admin: 09/20/18 09:17 Dose: 40 mg Prednisone (Prednisone Tab) 20 mg PO DAILY COUNT [facility]CLUD[facility] Last Admin: 09/20/18 09:18 Dose: 20 mg Saccharomyces Boulardii (Florastor) 250 mg PO BID COUNT [facility]CLUD[facility] Last Admin: 09/20/18 17:42 Dose: 250 mg Senna/Docusate Sodium (Senokot S 50 Mg-8.6 Mg) 2 tab PO HS COUNT [facility]CLUD[facility] Last Admin: 09/19/18 21:14 Dose: 2 tab Sumatriptan Succinate (Imitrex Tab) 100 mg PO DAILY PRN Last Admin: 09/20/18 13:34 Dose: 100 mg Trimethoprim/Sulfamethoxazole (Bactrim Ds Tab) 1 tab PO Q12H [facility]CLUD[facility]; Protocol Last Admin: 09/20/18 09:17 Dose: 1 tab - Labs Labs: 09/17/18 07:11 09/17/18 19:28 Assessment and Plan (1) Respiratory distress Status: Acute (2) Rheumatoid aortitis Status: Acute (3) Systemic lupus Status: Acute
--- NOTE | 2018-09-20 19:19 | CP.PCM.PN ---
Subjective - Date & Time of Evaluation Date of Evaluation: 09/20/18 Time of Evaluation: 19:19 - Subjective Subjective: AFEBRILE, VSS STATES LESS COUGH. MILD DYSPNEA ON EXERTION. PATH REPORT NOTED.-VE GRANULOMA -VE AFB, -VE FUNGAL STAINS. BRONCHIAL WASHINGS -VE afb SMEARS -VE PCP , -VE FOR FUNGAL ELEMENTS.( SEE FULL REPORT) PATIENT HAD +VE SERUM MARKERS TO BETA-D- GLUCAN. qUANTIferon gOLD tb TEST--INDETERMINATE X2 SERUM MARKERS ARE NOT SPECIFIC TO INVASIVE DISEASE. hISTOPATHOLOGY MAKES A DIAGNOSIS OF INVASIVE ASPERGILLOSIS/OR GRANULOMATOUS DISEASE.SINCE PATIENT DOES NOT HAVE GRANULOMAS CASEATING OR NONCASEATING DOUBT IF HAS TB/OR SARCOID SINCE PATIENT HAD pSEUDOMONAS IN THE SPUTUM,wILL CONTINUE BY MOUTH CIPRO 500 TWICE A DAY FOR 10 DAYS. PATIENT TO FOLLOW-UP CLOSELY WITH PULMONARY AND RHEUMATOLOGY. F/U CULTURES X 6- 8WKS BEFORE STARTING ANY MONO CLONAL ANTIBODIES/TNF -AGENTS IF FEASABLE . Objective - Vital Signs/Intake and Output Vital Signs (last 24 hours): Temp Pulse Resp BP Pulse Ox 98.1 F 77 20 118/79 97 09/20/18 15:00 09/20/18 15:00 09/20/18 15:00 09/20/18 15:00 09/20/18 15:00 Intake and Output: 09/20/18 09/21/18 18:59 06:59 Intake Total 200 Balance 200 - Medications Medications: Current Medications Baclofen (Lioresal) 20 mg PO BID [facility] Last Admin: 09/20/18 17:41 Dose: 20 mg Ciprofloxacin (Cipro) 500 mg PO BID [facility]; Protocol Last Admin: 09/20/18 17:35 Dose: 500 mg Folic Acid (Folic Acid) 1 mg PO DAILY [facility] Last Admin: 09/20/18 09:17 Dose: 1 mg Guaifenesin (Mucinex La) 600 mg PO BID [facility] Last Admin: 09/20/18 17:35 Dose: 600 mg Hydroxychloroquine Sulfate (Plaquenil) 200 mg PO BID [facility] Last Admin: 09/20/18 17:35 Dose: 200 mg Lactulose (Enulose) 20 gm PO HS PRN PRN Reason: Constipation Last Admin: 09/17/18 22:16 Dose: 20 gm Nystatin (Nystatin Oral Susp) 5 ml PO QID [facility] Last Admin: 09/20/18 17:35 Dose: 5 ml Ondansetron HCl (Zofran Inj) 4 mg IM Q6H PRN PRN Reason: Nausea/Vomiting Pantoprazole Sodium (Protonix Ec Tab) 40 mg PO DAILY [facility] Last Admin: 09/20/18 09:17 Dose: 40 mg Prednisone (Prednisone Tab) 20 mg PO DAILY [facility] Last Admin: 09/20/18 09:18 Dose: 20 mg Saccharomyces Boulardii (Florastor) 250 mg PO BID [facility] Last Admin: 09/20/18 17:42 Dose: 250 mg Senna/Docusate Sodium (Senokot S 50 Mg-8.6 Mg) 2 tab PO HS [facility] Last Admin: 09/19/18 21:14 Dose: 2 tab Sumatriptan Succinate (Imitrex Tab) 100 mg PO DAILY PRN Last Admin: 09/20/18 13:34 Dose: 100 mg Trimethoprim/Sulfamethoxazole (Bactrim Ds Tab) 1 tab PO Q12H [facility]; Protocol Last Admin: 09/20/18 09:17 Dose: 1 tab - Labs Labs: 09/17/18 07:11 09/17/18 19:28 - Constitutional Appears: No Acute Distress - Head Exam Head Exam: NORMAL INSPECTION - Eye Exam Eye Exam: EOMI, PERRL - ENT Exam ENT Exam: Normal Oropharynx - Neck Exam Neck Exam: Normal Inspection - Respiratory Exam Respiratory Exam: Decreased Breath Sounds, NORMAL BREATHING PATTERN - Cardiovascular Exam Cardiovascular Exam: REGULAR RHYTHM, +S1, +S2 - GI/Abdominal Exam GI & Abdominal Exam: Soft, Normal Bowel Sounds - Neurological Exam Neurological Exam: Alert, Awake, Oriented x3, Reflexes Normal - Psychiatric Exam Psychiatric exam: Normal Mood - Skin Skin Exam: Normal Color, Warm Assessment and Plan (1) Respiratory distress Status: Acute (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 CASE DISCUSSED WITH FINISHED METAL REPAIRER -MS ALONZO.
--- NOTE | 2018-09-20 22:28 | CP.PCM.DIS ---
Provider - Provider Date of Admission: 09/09/18 12:39 Attending physician: Elvin Hidalgo MD Consults: 09/07/18 15:49 Pulmonology Consult Stat Comment: Consulting Provider: Sergo Morrell Consulting Physician: Sergo Morrell Reason for Consult: wosening SOB/possible PNA 09/07/18 20:47 Cardiology Consult Routine Comment: Consulting Provider: Jason Blount Consulting Physician: Jason Blount Reason for Consult: SOB 09/08/18 16:38 Physician Consult Routine Comment: Consulting Provider: Armand Smith Consulting Physician: Armand Smith Reason for Consult: ra 09/09/18 13:45 Inpatient [employer] Core Measures Referral Routine Comment: Physician Instructions: Reason For Exam: triggered: SOB on admission 09/10/18 14:21 Infectious Disease Consult Routine Comment: Consulting Provider: Sarai Holley Consulting Physician: Sarai Holley Reason for Consult: concern for fungal respiratory infection Time Spent in preparation of Discharge (in minutes): 30 Hospital Course - Lab Results Lab Results: Micro Results 09/12/18 09:47 Unknown - Sputum Mycobacterial Culture - Preliminary 09/11/18 13:12 Unknown - Sputum Mycobacterial Culture - Preliminary 09/16/18 14:35 Bronchial Washings Bronchial Culture - Final No growth. 09/16/18 14:35 Bronchial Washings Bronchial Culture - Final No growth. 09/16/18 14:35 Bronchial Washings Fungal Smear - Final 09/16/18 14:35 Bronchial Washings Fungal Smear - Final 09/16/18 14:35 Other: Please Indicate Mycobacterial Culture - Preliminary 09/16/18 14:35 Other: Please Indicate Mycobacterial Culture - Preliminary 09/16/18 14:35 Bronchial Washings Gram Stain - Final 09/16/18 14:35 Bronchial Washings Gram Stain - Final 09/15/18 11:20 Sputum Fungal Smear - Final 09/15/18 11:20 Other: Please Indicate Fungal Culture - Preliminary 09/13/18 14:13 Other: Please Indicate Mycobacterial Culture - Preliminary 09/07/18 18:13 Blood-Venous Blood Culture - Final NO GROWTH AFTER 5 DAYS 09/07/18 18:13 Blood-Venous Gram Stain - Final TEST NOT PERFORMED 09/07/18 18:13 Blood-Venous Blood Culture - Final NO GROWTH AFTER 5 DAYS 09/07/18 18:13 Blood-Venous Gram Stain - Final TEST NOT PERFORMED 09/08/18 15:50 Sputum Induced Gram Stain - Final 09/08/18 15:50 Sputum Induced Sputum Culture - Final Pseudomonas Fluorescens 09/10/18 19:33 Naris MRSA Culture (Admit) - Final MRSA NOT DETECTED 09/07/18 17:32 Urine,Norton Urine Culture - Final Lactobacillus Species Most Recent Lab Values WBC 8.1 K/uL (4.8-10.8) 09/17/18 07:11 RBC 4.14 Mil/uL (3.80-5.20) 09/17/18 07:11 Hgb 12.2 g/dL (11.0-16.0) 09/17/18 07:11 Hct 35.7 % (34.0-47.0) 09/17/18 07:11 MCV 86.2 fL (81.0-99.0) 09/17/18 07:11 MCH 29.5 pg (27.0-31.0) 09/17/18 07:11 MCHC 34.3 g/dL (33.0-37.0) 09/17/18 07:11 RDW 16.2 % (11.5-14.5) H 09/17/18 07:11 Plt Count 320 K/uL (130-400) 09/17/18 07:11 MPV 7.7 fL (7.2-11.7) 09/17/18 07:11 Neut % (Auto) 72.3 % (50.0-75.0) 09/17/18 07:11 Lymph % (Auto) 23.0 % (20.0-40.0) 09/17/18 07:11 Lucas % (Auto) 3.1 % (0.0-10.0) 09/17/18 07:11 Eos % (Auto) 1.5 % (0.0-4.0) 09/17/18 07:11 Baso % (Auto) 0.1 % (0.0-2.0) 09/17/18 07:11 Neut # (Auto) 5.9 K/uL (1.8-7.0) 09/17/18 07:11 Lymph # (Auto) 1.9 K/uL (1.0-4.3) 09/17/18 07:11 Lucas # (Auto) 0.3 K/uL (0.0-0.8) 09/17/18 07:11 Eos # (Auto) 0.1 K/uL (0.0-0.7) 09/17/18 07:11 Baso # (Auto) 0.0 K/uL (0.0-0.2) 09/17/18 07:11 Neutrophils % (Manual) 88 % (50-75) H 09/10/18 07:10 Lymphocytes % (Manual) 11 % (20-40) L 09/10/18 07:10 Monocytes % (Manual) 1 % (0-10) 09/10/18 07:10 Platelet Estimate Slightly increased (NORMAL) H 09/10/18 07:10 Hypochromasia (manual) Slight 09/10/18 07:10 Poikilocytosis (manual Slight 09/10/18 07:10 Anisocytosis (manual) Slight 09/10/18 07:10 Ovalocytes Slight 09/10/18 07:10 Yadira Cells Slight 09/10/18 07:10 ESR 128 mm/hr (0-20) H 09/09/18 06:44 Puncture Site Rradial 09/07/18 14:00 pCO2 29 mm/Hg (35-45) L 09/07/18 14:00 pO2 47 mm/Hg (30-55) 09/07/18 17:30 HCO3 24.6 mmol/L (21-28) 09/07/18 14:00 ABG pH 7.49 (7.35-7.45) H 09/07/18 14:00 ABG Total CO2 23.0 mmol/L (22-28) 09/07/18 14:00 ABG O2 Saturation 93.3 % (95-98) L 09/07/18 14:00 ABG Base Excess -0.2 mmol/L (-2.0-3.0) 09/07/18 14:00 Nacho Test Pos 09/07/18 14:00 ABG Potassium 3.0 mmol/L (3.6-5.2) L 09/07/18 14:00 VBG pH 7.38 (7.32-7.43) 09/07/18 17:30 VBG pCO2 31 mmHg (40-60) L 09/07/18 17:30 VBG HCO3 20.1 mmol/L 09/07/18 17:30 VBG Total CO2 19.3 mmol/L (22-28) L 09/07/18 17:30 VBG O2 Sat (Calc) 86.4 % (40-65) H 09/07/18 17:30 VBG Base Excess -5.7 mmol/L (0.0-2.0) L 09/07/18 17:30 VBG Potassium 2.5 mmol/L (3.6-5.2) L* 09/07/18 17:30 A-a O2 Difference 58.0 mm/Hg 09/07/18 14:00 Respiratory Index 1.1 09/07/18 14:00 Sodium 141.0 mmol/l (132-148) 09/07/18 17:30 Chloride 112.0 mmol/L (98-107) H 09/07/18 17:30 Glucose 60 mg/dl (65-105) L 09/07/18 17:30 Lactate 1.2 mmol/L (0.7-2.1) 09/07/18 17:30 FiO2 21.0 % 09/07/18 17:30 Crit Value Called To Dr hidalgo 09/07/18 17:30 Crit Value Called By [facility] 09/07/18 17:30 Crit Value Read Back Y 09/07/18 17:30 Blood Gas Notified Time 1734 09/07/18 17:30 Sodium 131 mmol/L (132-148) L 09/17/18 19:28 Potassium 5.2 mmol/L (3.6-5.2) 09/17/18 19:28 Chloride 97 mmol/L (98-107) L 09/17/18 19:28 Carbon Dioxide 25 mmol/L (22-30) 09/17/18 19:28 Anion Gap 15 (10-20) 09/17/18 19:28 BUN 22 mg/dL (7-17) H 09/17/18 19:28 Creatinine 0.8 mg/dL (0.7-1.2) 09/17/18 19:28 Est GFR ( Amer) > 60 09/17/18 19:28 Est GFR (Non-Af Amer) > 60 09/17/18 19:28 POC Glucose (mg/dL) 158 mg/dL (65-110) H 09/15/18 20:22 Random Glucose 179 mg/dL (65-105) H D 09/17/18 19:28 Calcium 9.4 mg/dl (8.6-10.4) 09/17/18 19:28 Phosphorus 5.2 mg/dL (2.5-4.5) H 09/16/18 09:54 Magnesium 2.0 mg/dL (1.6-2.3) 09/16/18 09:54 Total Bilirubin 0.3 mg/dL (0.2-1.3) 09/17/18 07:11 Direct Bilirubin 0.2 mg/dL (0.0-0.4) 09/13/18 07:59 AST 47 U/L (14-36) H D 09/17/18 07:11 ALT 64 U/L (9-52) H 09/17/18 07:11 Alkaline Phosphatase 60 U/L (38-126) 09/17/18 07:11 Lactate Dehydrogenase 960 U/L (313-618) H 09/11/18 07:08 C-Reactive Protein 23.60 mg/L (0.0-9.9) H 09/09/18 06:44 NT-Pro-B Natriuret Pep 280 pg/mL (0-450) 09/08/18 18:56 Total Protein 7.4 g/dL (6.3-8.3) 09/17/18 07:11 Albumin 3.6 g/dL (3.5-5.0) 09/17/18 07:11 Globulin 3.8 gm/dL (2.2-3.9) 09/17/18 07:11 Albumin/Globulin Ratio 1.0 (1.0-2.1) 09/17/18 07:11 Amylase 84 U/L (30-110) 09/09/18 06:44 Angiotensin Convert Enz 73 U/L (9-67) H 09/13/18 07:59 Procalcitonin < 0.05 NG/ML (0.19-0.49) L 09/08/18 11:03 Arterial Blood Potassium 3.0 mmol/L (3.6-5.2) L 09/07/18 14:00 Venous Blood Potassium 2.5 mmol/L (3.6-5.2) L* 09/07/18 17:30 Urine Color Yellow (YELLOW) 09/07/18 14:43 Urine Clarity Hazy (Clear) 09/07/18 14:43 Urine pH 6.0 (5.0-8.0) 09/07/18 14:43 Ur Specific Drury 1.016 (1.003-1.030) 09/07/18 14:43 Urine Protein Negative mg/dL (NEGATIVE) 09/07/18 14:43 Urine Glucose (UA) Normal mg/dL (Normal) 09/07/18 14:43 Urine Ketones Negative mg/dL (NEGATIVE) 09/07/18 14:43 Urine Blood 2+ (NEGATIVE) H 09/07/18 14:43 Urine Nitrate Negative (NEGATIVE) 09/07/18 14:43 Urine Bilirubin Negative (NEGATIVE) 09/07/18 14:43 Urine Urobilinogen 2.0 mg/dL (0.2-1.0) H 09/07/18 14:43 Ur Leukocyte Esterase Neg Isai/uL (Negative) 09/07/18 14:43 Urine WBC (Auto) 2 /hpf (0-5) 09/07/18 14:43 Urine RBC (Auto) 21 /hpf (0-3) H 09/07/18 14:43 Ur Squamous Epith Cells 1 /hpf (0-5) 09/07/18 14:43 Urine Bacteria Rare (<OCC) 09/07/18 14:43 Urine HCG, Qual Negative (NEGATIVE) 09/16/18 06:08 Cycl Citrul Peptide IgG >250 Units H 09/09/18 06:44 BARTOLO Screen Positive (Negative) H 09/09/18 06:44 [place]O Titer 1:640 Titer (<1:40) H 09/09/18 06:44 [place]O Pattern Homogeneous H 09/09/18 06:44 SS-A Antibody <1.0 AI (<1.0) 09/09/18 06:44 SS-B Ab Interp Negative (Negative) 09/09/18 06:44 SS-B Antibody <1.0 AI (<1.0) 09/09/18 06:44 SS-B Ab Interp Negative (Negative) 09/09/18 06:44 KITCHEN OPERATOR Antibody <1.0 AI (<1.0) 09/09/18 06:44 KITCHEN OPERATOR Antibody Interp Negative (Negative) 09/09/18 06:44 Double Strand DNA Ab 1 IU/mL 09/09/18 06:44 Anti-SRP Antibody Not detected (Not detected) 09/09/18 06:44 Histop Galactomannan Ag <0.5 ng/mL 09/10/18 07:40 HIV 1&2 Ag/Ab, 4th Gen Nonreactive (Nonreactive) 09/11/18 07:08 HIV 1&2 Antibody Screen Negative (NEGATIVE) 09/11/18 07:08 P. carinii Source Bronchial washings 09/16/18 10:01 P.carinii Concentration 09/16/18 10:01 Pneumocyst carinii DFA See note 09/16/18 10:01 Anti-Streptolysin Titr =>1,600 iu/ml (NEGATIVE) H 09/09/18 06:44 Anti-Streptolysin O Ab Positive (NEGATIVE) H 09/09/18 06:44 TB Test (QFT) Nil 0.02 IU/mL 09/14/18 06:17 TB Test Mitogen - Nil 0.00 IU/mL 09/14/18 06:17 TB Test Antigen - Nil 0.00 IU/mL 09/14/18 06:17 TB Test TB - Nil 0.01 IU/mL 09/14/18 06:17 TB Test (QFT) Indeterminate (Negative) H 09/14/18 06:17 Beta-(1,3)-D-Glucan 130 pg/mL (<60) H 09/09/18 12:55 B-(1,3)-D-Glucan Intrp Positive H 09/09/18 12:55 Discharge Exam - Head Exam Head Exam: NORMAL INSPECTION Discharge Plan - Discharge Medications Prescriptions: Ciprofloxacin HCl [Cipro] 500 mg PO BID #20 tablet - Follow Up Plan Condition: GOOD Disposition: HOME/ ROUTINE Instructions: Ciprofloxacin (Systemic), Rheumatoid Arthritis (DC), Shortness of Breath (Dyspnea) (DC), Lupus (DC) Referrals: Elvin Hidalgo MD [Staff Provider] -
--- NOTE | 2018-09-20 22:33 | CP.PCM.PN ---
Subjective - Date & Time of Evaluation Date of Evaluation: 09/20/18 Time of Evaluation: 19:05 - Subjective Subjective: patient still has shortness of breath on exertion. Presently on O2 with nasal cannula. patient has less cough and had one episode of vomiting today. Awaiting lung biopsy results. Patient instructed to continue all meds including Humira injection.. Patient will follow-up as an outpatient in 10 days Objective - Vital Signs/Intake and Output Vital Signs (last 24 hours): Temp Pulse Resp BP Pulse Ox 98.1 F 77 20 118/79 97 09/20/18 15:00 09/20/18 15:00 09/20/18 15:00 09/20/18 15:00 09/20/18 15:00 Intake and Output: 09/20/18 09/21/18 18:59 06:59 Intake Total 200 Balance 200 - Labs Labs: 09/17/18 07:11 09/17/18 19:28 - Constitutional Appears: Chronically Ill - Head Exam Head Exam: NORMOCEPHALIC - Eye Exam Eye Exam: Normal appearance Pupil Exam: NORMAL ACCOMODATION - ENT Exam ENT Exam: Normal Exam - Neck Exam Neck Exam: Normal Inspection - Respiratory Exam Respiratory Exam: Decreased Breath Sounds - Cardiovascular Exam Cardiovascular Exam: REGULAR RHYTHM - GI/Abdominal Exam GI & Abdominal Exam: Normal Bowel Sounds - Rectal Exam Rectal Exam: Deferred - Extremities Exam Extremities Exam: Tenderness - Back Exam Back Exam: NORMAL INSPECTION - Neurological Exam Neurological Exam: Oriented x3 - Psychiatric Exam Psychiatric exam: Normal Affect - Skin Skin Exam: Dry Assessment and Plan (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
--- NOTE | 2018-09-21 21:44 | DS ---
DISCHARGE DIAGNOSES: 1. Pneumonia. 2. Rheumatoid arthritis. HISTORY OF PRESENT ILLNESS: This is a 43-year-old female with a history of rheumatoid arthritis, came in with cough, congestion, shortness of breath and wheezing. The patient was treated for atypical pneumonia and PCP because of immunosuppressive status and the patient did well. She improved. She is for discharge. Condition upon discharge is stable. During course of hospitalization, she was seen by heel seat flap stapler. She was also seen by Infectious Disease and laboratory tester. She did well. She is for discharge. CONDITION UPON DISCHARGE: Stable. PHYSICAL EXAMINATION: LUNGS: Clear. ABDOMEN: Soft, nontender. Bowel sounds are positive. Elvin Hidalgo MD
== END 2018-09-20 21:11 | disposition home or self-care (01) | DRG 76 ==
LOC: C.ER 12:27 → C.9E 15:56 → C.3T 16:40 → OBSVTOIN 09-09 12:39 → C.3T 09-11 01:27
PROVIDERS: ADMIT Internal Medicine; ATTEND Internal Medicine
PROC: 0BD68ZX Extraction of Right Lower Lobe Bronchus, Via Natural or Artificial Opening Endoscopic, Diagnostic (ICD-10-PCS; 2018-09-16)
PROC: 0B9D8ZX Drainage of Right Middle Lung Lobe, Via Natural or Artificial Opening Endoscopic, Diagnostic (ICD-10-PCS; principal; 2018-09-16 08:00)
DX: J15.9 Unspecified bacterial pneumonia (principal); M32.9 Systemic lupus erythematosus, unspecified; D86.0 Sarcoidosis of lung; J84.9 Interstitial pulmonary disease, unspecified; E87.1 Hypo-osmolality and hyponatremia; R09.02 Hypoxemia; M05.30 Rheumatoid heart disease with rheumatoid arthritis of unspecified site; E87.5 Hyperkalemia; J45.901 Unspecified asthma with (acute) exacerbation; D63.8 Anemia in other chronic diseases classified elsewhere; Z90.49 Acquired absence of other specified parts of digestive tract; M05.10 Rheumatoid lung disease with rheumatoid arthritis of unspecified site; D50.9 Iron deficiency anemia, unspecified; G43.909 Migraine, unspecified, not intractable, without status migrainosus